=== PATIENT | male | born 1940 | race Caucasian/White ===

== ENCOUNTER → 2018-01-03 09:53 | Outpatient (CLI) | payer MEDICARE, SELFPAY ==
--- NOTE | 2018-01-03 10:09 | US_ITS ---
PROCEDURES: ULTRASOUND AORTA REASON FOR EXAM: Male, 77 years old. Abdominal aortic aneurysm. TECHNIQUE: Ultrasound evaluation of the aorta was performed with real-time and static shearer-scale imaging. COMPARISON: None. FINDINGS: There is atherosclerotic plaque formation of the abdominal aorta. Aorta measures: Proximal 2.6 cm. Middle 2.6 cm. Distal 2.6 cm. Aorta measure transversely: Proximal 3.0 cm. Middle 2.9 cm. Distal 3.9 cm. Right iliac artery measures: 1.4 cm. Right iliac artery measure transversely: 2.4 cm. Left iliac artery measures: 1.2 cm. Left iliac artery measure transversely: 1.8 cm. Fusiform infrarenal abdominal aortic aneurysm with a transverse dimension of 3.6 cm.. US/Aorta IMPRESSION: Fusiform infrarenal abdominal aortic aneurysm with a transverse dimension of 3.6 cm. Dilatation of the right common iliac artery. Electronically Signed: Wallace Friedman MD at 15:28 EDT Tel [phone], Service support ,
== END ==
PROVIDERS: Family Provider Internal Medicine; PCP Internal Medicine; Visit Provider Internal Medicine
DX: I71.4 Abdominal aortic aneurysm, without rupture (principal)
CPT/HCPCS: 76775

== ENCOUNTER → 2019-08-13 12:22 | Outpatient (CLI) | payer MEDICARE, SELFPAY ==
--- NOTE | 2019-08-13 12:25 | MRI_ITS ---
STUDY: MRI LUMBAR SPINE WITHOUT CONTRAST REASON FOR EXAM: Male, 78 years old. Spinal stenosis, c/o weak aching lower back into hips/legs x 3 yrs, h/o prior laminectomy 1990. TECHNIQUE: Standardized fat and water weighted pulse sequences were obtained in the sagittal and axial planes. COMPARISON: None. FINDINGS: Lumbar straightening. No significant scoliosis. No acute fracture, dislocation or osseous destruction. Conus medullaris terminates at the T12 level. Paraspinal muscle atrophy. Ectatic slightly dilated aorta measuring up to 3 cm. Right renal cyst. T12-L1: Moderate endplate spondylosis. Disc bulge with mild central canal narrowing. Facet joint arthrosis. Lateral recess narrowing without impingement. Normal bilateral intervertebral neural foramina. L1-2: Moderate endplate spondylosis. Severe disc height loss with moderate central canal narrowing. Facet joint arthrosis. Bilateral lateral recess narrowing with impingement. Bilateral neural femoral narrowing without impingement. L2-3: Moderate endplate spondylosis. Severe disc height loss. Facet joint arthrosis. Normal central canal and bilateral lateral recesses. Bilateral neural foraminal narrowing without impingement. L3-4: Severe endplate spondylosis with degenerative/reactive edema. Disc bulge with severe central canal narrowing. Facet joint arthrosis. Bilateral lateral recess narrowing with impingement. Bilateral neural foraminal narrowing with impingement on the left. Epidural fat contributes to central canal narrowing. L4-5: Moderate endplate spondylosis. Severe disc height loss. Extensive posterior osseous ridging with moderate central canal narrowing. Facet joint arthrosis. Bilateral lateral recess narrowing with impingement on the right. Bilateral neural foraminal narrowing with impingement on the right. L5-S1: Moderate endplate spondylosis. Disc bulge with mild central canal narrowing. Facet joint arthrosis. Bilateral lateral recess narrowing without impingement. Bilateral neural foraminal narrowing with impingement on the right. Left hemilaminotomy. MRI/Spine Lumbar (Routine) IMPRESSION: Extensive multilevel intervertebral disc disease with central canal narrowing predominating at L1-2, L3-4 and L4-5 Multilevel lateral recess narrowing with impingement of the bilateral descending L2, left L4 and bilateral L5 nerve roots Multilevel neural foraminal narrowing with impingement of the left L3, right L4 and right L5 nerve roots Lumbar straightening with moderate/severe osteoarthritis Ectatic slightly aneurysmal aorta (3 cm) Electronically Signed: Zana Fuller DO at 10:47 EST Tel , Service support ,
== END ==
PROVIDERS: Family Provider Internal Medicine; PCP Internal Medicine; Referring Provider Internal Medicine; Visit Provider Internal Medicine
DX: M48.062 Spinal stenosis, lumbar region with neurogenic claudication (principal)
CPT/HCPCS: 72148

== ENCOUNTER → 2020-05-12 08:28 | Outpatient (CLI) | payer MEDICARE, SELFPAY ==
[2020-04-27 08:56] VITALS: BMI 33.3
--- NOTE | 2020-05-12 08:29 | AAVD_ITS ---
Reason For Study: AAA Aorta Measurements Aorta Doppler Measurements Proximal aorta measures2.36 x 2.41cm. in cross- Peak systolic flow velocities within the proximal sectional axis. aorta measure 95.3 cm/sec. Proximal aorta measures2.44cm. in longitudinal Peak systolic flow velocities within the mid aorta axis. measure 91.7 cm/sec. Mid aorta measures2.56 x 3.4cm. in cross-sectionalPeak systolic flow velocities within the distal axis. aorta measure 66.1 cm/sec. Mid aorta measures3.06cm. in longitudinal axis. Distal aorta measures2.56 x 2.34cm. in cross- sectional axis. Distal aorta measures2.27cm. in longitudinal axis. Left Iliac Artery Left iliac artery measures 1.16 x 1.28 cm. in the cross-sectional axis. Left iliac artery measures 1.23 cm. in the longitudinal axis. Peak systolic velocity in the left iliac artery measures 143.1 cm/sec. Right Iliac Artery Right iliac artery measures 1.81 x 1.86 cm. in the cross-sectional axis. Right iliac artery measures 1.7 cm. in the longitudinal axis. Peak systolic velocity in the right iliac artery measures 132.2 cm/sec. Procedure Aorta IVC Iliac vasculature or bypass grafts [id number]. The exam was of fair technical quality due to bowel gas. Extremely difficult study due to bowel gas. Exam performed in department. Interpretation Summary Mid infra-renal abdominal aortic aneurysm 2.56 x 3.4cm Left common iliac 1.16 x 1.28cm Right common iliac 1.81 x 1.86 cm, ectatic Study was noted to be difficult secondary to bowel gas; fair quality Ordering Physician: Laci Lowry Performed By: Tim Ricci RVCarlos
[2020-05-12 10:06] LABS: Absolute Lymphocyte Count 1.68 X10^3/uL (0.83-4.51); Absolute Neutrophil Count 3.4 X10^3/uL (2.0-7.7); Basophil# 0.03 X10^3/uL; Basophil% 0.5 % (0-1); Eosinophil# 0.15 X10^3/uL; Eosinophils% 2.5 % (0-5); Hematocrit 41.3 % (40-54); Hemoglobin 13.2 g/dL (13.0-16.5); Lymphocyte # 1.68 X10^3/ul (4.0); Lymphocyte % 28.4 % (19-41); Mean Corpuscular Hgb 31.1 pg (27.0-32.0); Mean Corpuscular Volume 97.2 fL (80-94); Mean Platelet Vol. 10.4 fl (6.2-12.0); Monocyte# 0.64 X10^3/uL; Monocyte% 10.8 % (0-10); NRBC Flagged by Analyzer 0 % (0-5); Neutrophil # 3.39 X10^3/uL (2.7-7.7); Neutrophil % 57.5 % (47-70); Platelet Count 144 K/mm3 (150-450); RBC Distribution Width CV 14.3 % (11.6-14.6); RBC Distribution Width SD 50.6 fl (35.1-43.9); Red Blood Count 4.25 M/mm3 (4.6-6.2); White Blood Count 5.9 K/mm3 (4.4-11.0)
[2020-05-12 10:47] LABS: ALB/GLOB Ratio 0.9 RATIO (0.9-2.4); AST(SGOT) 17 U/L (15-37); Alanine Aminotransfer ALT/SGPT 19 U/L (16-61); Albumin, Serum 3.7 g/dL (3.2-5.0); Alkaline Phosphatase 106 U/L (45-117); Anion Gap 3 (5-15); BUN 18 mg/dL (7-18); Chloride 102 mmol/L (98-107); Cholesterol 156 mg/dL (200); EST Glomerular Filtration Rate 87 mL/min (>60); Est Glom Filt Rate - Afr Amer 105 mL/min (>60); Globulin 4.1 g/dL (2.2-4.2); Glucose 109 mg/dL (74-106); High Density Lipoprotein 38 mg/dL; Protein, Total 7.8 g/dL (6.4-8.2); Sodium Level 138 mmol/L (136-145); Triglycerides 85 mg/dL; Very Low Density Lipoprotein 17 mg/dL (5-40)
== END ==
PROVIDERS: PCP Internal Medicine; Referring Provider Surgery; Visit Provider Surgery
DX: I71.4 Abdominal aortic aneurysm, without rupture (principal); E78.5 Hyperlipidemia, unspecified; J44.9 Chronic obstructive pulmonary disease, unspecified
CPT/HCPCS: 36415; 80053; 80061; 85025; 93978

== ENCOUNTER 2020-08-15 12:24 | Emergency (ER) | payer MEDICARE, SELFPAY ==
[2020-05-27 05:56] VITALS: BMI 33.3
[2020-08-15 12:25] VITALS: BP 114/69; PULSE 80; RESP 24; TEMP 36.8; O2SAT 94; BMI 35.7
== END 2020-08-15 14:43 | disposition left against medical advice (07) ==
LOC: ED 13:43
PROVIDERS: Emergency Provider Emergency Medicine; PCP Internal Medicine
DX: R06.02 Shortness of breath (principal); Z53.21 Procedure and treatment not carried out due to patient leaving prior to being seen by health care provider

== ENCOUNTER → 2020-08-25 09:50 | Outpatient (CLI) | payer MEDICARE, SELFPAY ==
--- NOTE | 2020-08-25 10:00 | RAD_ITS ---
STUDY: X-RAY CHEST REASON FOR EXAM: Male, 79 years old. DYSPNEA, SOB, copd exacerbation -- History of copd. TECHNIQUE: Single AP portable view of the chest. COMPARISON: 05/18/2017. FINDINGS: There are interstitial fibrotic changes of the lungs. There is no demonstrated pleural abnormality. Normal size heart. Normal mediastinum and alireza. Normal visualized pulmonary arteries. Normal visualized aortic arch and descending thoracic aorta. Normal visualized thoracic spine. There is degenerative osteoarthritis of the bilateral shoulders. There is no demonstrated abnormality of the visualized soft tissue structures of the upper abdomen. RAD/Chest PA and Lateral IMPRESSION: Chronic interstitial lung disease.. Electronically Signed: Mike Musa, at 10:31 EST Tel , Service support ,
== END ==
PROVIDERS: PCP Internal Medicine; Visit Provider Internal Medicine
DX: U07.1 COVID-19 (principal); J44.1 Chronic obstructive pulmonary disease with (acute) exacerbation; J96.11 Chronic respiratory failure with hypoxia
CPT/HCPCS: 71046; 87635; C9803; U0003

== ENCOUNTER → 2020-08-25 09:55 | Outpatient (CLI) | payer MEDICARE, SELFPAY ==
[2020-08-15 12:25] VITALS: BMI 35.7
== END ==
PROVIDERS: PCP Internal Medicine; Referring Provider Internal Medicine; Visit Provider Internal Medicine
DX: U07.1 COVID-19 (principal); J44.1 Chronic obstructive pulmonary disease with (acute) exacerbation
CPT/HCPCS: 87635; C9803; U0003

== ENCOUNTER → 2021-02-16 15:31 | Outpatient (CLI) | payer MEDICARE, SELFPAY ==
[2021-02-16 14:17] VITALS: BMI 34.4
--- NOTE | 2021-02-16 16:00 | RAD_ITS ---
STUDY: X-RAY CHEST REASON FOR EXAM: Male, 80 years old. Shortness of breath TECHNIQUE: Frontal and lateral views COMPARISON: 08/25/2020 FINDINGS: The lungs are expanded. Interstitial prominence. Normal size heart. Normal mediastinum and alireza. Normal visualized pulmonary arteries. Normal visualized aortic arch and descending thoracic aorta. Degenerative changes of the thoracic spine. Normal visualized ribs, clavicles, and shoulders. There is no demonstrated abnormality of the visualized soft tissue structures of the upper abdomen. RAD/Chest PA and Lateral IMPRESSION: Interstitial prominence. Electronically Signed: Chrisitano Bond DO at 16:36 EDT Tel [phone], Service support ,
--- NOTE | 2021-02-16 16:00 | RAD_ITS ---
STUDY: X-RAY - LEFT SHOULDER REASON FOR EXAM: Male, 80 years old. Left shoulder pain TECHNIQUE: 4 view(s) of the shoulder. COMPARISON: None. FINDINGS: Normal glenohumeral articulation. Normal acromioclavicular joint. Normal acromion. Normal humeral head and visualized proximal humerus. The soft tissue structures are unremarkable. Normal visualized pulmonary apex. RAD/Shoulder min 2 Views IMPRESSION: No acute bony injury of the shoulder. Electronically Signed: Christiano Bond DO at 16:26 EDT Tel [phone], Service support ,
[2021-02-16 16:40] LABS: Absolute Neutrophil Count 3.9 X10^3/uL (2.0-7.7); Basophil# 0.03 X10^3/uL; Basophil% 0.4 % (0-1); Eosinophil# 0.41 X10^3/uL; Eosinophils% 5.5 % (0-5); Hematocrit 38.7 % (40-54); Hemoglobin 12.4 g/dL (13.0-16.5); Lymphocyte % 33.5 % (19-41); Mean Corpuscular Volume 93.5 fL (80-94); Mean Platelet Vol. 10.5 fl (6.2-12.0); Monocyte# 0.61 X10^3/uL; Monocyte% 8.2 % (0-10); NRBC Flagged by Analyzer 0 % (0-5); Neutrophil % 52.1 % (47-70); Platelet Count 157 K/mm3 (150-450); RBC Distribution Width CV 15.3 % (11.6-14.6); RBC Distribution Width SD 52.4 fl (35.1-43.9); Red Blood Count 4.14 M/mm3 (4.6-6.2); White Blood Count 7.5 K/mm3 (4.4-11.0)
[2021-02-16 16:56] LABS: ALB/GLOB Ratio 0.9 RATIO (0.9-2.4); AST(SGOT) 17 U/L (15-37); Alanine Aminotransfer ALT/SGPT 16 U/L (16-61); Albumin, Serum 3.4 g/dL (3.2-5.0); Alkaline Phosphatase 116 U/L (45-117); Anion Gap 8 (5-15); BUN 18 mg/dL (7-18); BUN/Creat Ratio 17.5 RATIO (10-20); Calcium,Total 8.7 mg/dL (8.5-10.1); Chloride 103 mmol/L (98-107); Creatinine, Serum 1.03 mg/dL (0.70-1.30); EST Glomerular Filtration Rate 74 mL/min (>60); Est Glom Filt Rate - Afr Amer 90 mL/min (>60); Globulin 3.9 g/dL (2.2-4.2); Glucose 123 mg/dL (74-106); Potassium 3.6 mmol/L (3.5-5.1); Protein, Total 7.3 g/dL (6.4-8.2); Sodium Level 139 mmol/L (136-145)
== END ==
PROVIDERS: PCP Internal Medicine; Referring Provider Physician Assistant; Visit Provider Physician Assistant
DX: M25.512 Pain in left shoulder (principal); R06.02 Shortness of breath; J44.9 Chronic obstructive pulmonary disease, unspecified; I10 Essential (primary) hypertension; K57.90 Diverticulosis of intestine, part unspecified, without perforation or abscess without bleeding
CPT/HCPCS: 36415; 71046; 73030; 80053; 85025

== ENCOUNTER → 2021-02-20 10:16 | Outpatient (CLI) | payer MEDICARE, SELFPAY ==
[2021-02-16 14:17] VITALS: BMI 34.4
[2021-02-20 10:46] LABS: Base Excess 3 mmol/L (-2 to +2); Bicarbonate 26.9 mmol/L (22-26); Blood Gas Specimen Type ART; O2 Delivery Device Cannula; PO2 81 mmHG (75-100); SITE L Brach; SO2 96 % (95-99); Total Carbon Dioxide 28 mmol/L; pCO2 39.4 mmHg (35-45); pH 7.44 (7.35-7.45)
== END ==
PROVIDERS: PCP Internal Medicine; Referring Provider Physician Assistant; Visit Provider Physician Assistant
DX: J44.9 Chronic obstructive pulmonary disease, unspecified (principal)
CPT/HCPCS: 36600; 82803

== ENCOUNTER → 2021-03-22 09:54 | Outpatient (CLI) | payer MEDICARE, SELFPAY ==
[2021-03-22 08:53] VITALS: BMI 34.4
[2021-03-22 12:10] LABS: Absolute Lymphocyte Count 1.99 X10^3/uL (0.83-4.51); Absolute Neutrophil Count 4.5 X10^3/uL (2.0-7.7); Basophil# 0.04 X10^3/uL; Basophil% 0.5 % (0-1); Eosinophil# 0.21 X10^3/uL; Eosinophils% 2.7 % (0-5); Hematocrit 39.2 % (40-54); Hemoglobin 12.7 g/dL (13.0-16.5); Lymphocyte # 1.99 X10^3/ul (0.83-4.51); Mean Corp Hgb Conc 32.4 g/dL (32-36); Mean Corpuscular Hgb 30.5 pg (27.0-32.0); Mean Corpuscular Volume 94.2 fL (80-94); Mean Platelet Vol. 10.5 fl (6.2-12.0); Monocyte# 0.93 X10^3/uL; Monocyte% 12.1 % (0-10); NRBC Flagged by Analyzer 0 % (0-5); Neutrophil # 4.45 X10^3/uL (2.7-7.7); Neutrophil % 58.2 % (47-70); Platelet Count 154 K/mm3 (150-450); RBC Distribution Width SD 51.6 fl (35.1-43.9); Red Blood Count 4.16 M/mm3 (4.6-6.2); White Blood Count 7.7 K/mm3 (4.4-11.0)
[2021-03-22 12:35] LABS: ALB/GLOB Ratio 0.8 RATIO (0.9-2.4); AST(SGOT) 17 U/L (15-37); Alanine Aminotransfer ALT/SGPT 20 U/L (16-61); Albumin, Serum 3.4 g/dL (3.2-5.0); Alkaline Phosphatase 114 U/L (45-117); Anion Gap 7 (5-15); BUN 12 mg/dL (7-18); BUN/Creat Ratio 13.6 RATIO (10-20); Calcium,Total 8.7 mg/dL (8.5-10.1); Chloride 102 mmol/L (98-107); Creatinine, Serum 0.88 mg/dL (0.70-1.30); EST Glomerular Filtration Rate 88 mL/min (>60); Est Glom Filt Rate - Afr Amer 107 mL/min (>60); Globulin 4.3 g/dL (2.2-4.2); Glucose 117 mg/dL (74-106); Potassium 3.7 mmol/L (3.5-5.1); Protein, Total 7.7 g/dL (6.4-8.2); Sodium Level 138 mmol/L (136-145)
== END ==
PROVIDERS: PCP Internal Medicine; Referring Provider Internal Medicine; Visit Provider Internal Medicine
DX: K57.92 Diverticulitis of intestine, part unspecified, without perforation or abscess without bleeding (principal)
CPT/HCPCS: 36415; 80053; 85025

== ENCOUNTER → 2021-03-22 10:32 | Outpatient (CLI) | payer MEDICARE, SELFPAY ==
[2021-03-22 08:53] VITALS: BMI 34.4
--- NOTE | 2021-03-22 10:33 | CT_ITS ---
STUDY: CT ABDOMEN AND PELVIS WITH CONTRAST REASON FOR EXAM: Male, 80 years old. History of acute diverticulitis. RADIATION DOSAGE (If Supplied By Facility): CTDIvol = ( 22.88 ) mGy, DLP = ( 1540.86 ) mGycm TECHNIQUE: Transaxial images were obtained from the dome of the diaphragm to the symphysis pubis with oral contrast. Oral and amp; IV Gastrografin and amp; 100mL Isovue-300 was administered. Sagittal and coronal images were reconstructed. Individualized dose optimization techniques were used for this CT. COMPARISON: Comparison is made with prior examination dated 11/30/2014. FINDINGS: The visualized lung bases are unremarkable. The visualized portions of the heart are within normal limits. There is decreased attenuation of the liver consistent with steatosis. Normal gallbladder and extrahepatic biliary system. Normal spleen. Normal pancreas. Normal bilateral adrenal glands. Normal right kidney. Normal left kidney. Normal visualized stomach. Normal small intestine. There are multiple colonic diverticula consistent with diverticulosis. The appendix is visualized and appears normal. There is diffuse atherosclerotic calcification of the abdominal aorta and its major visceral branches. Tortuosity of the distal abdominal aorta. The distal abdominal aorta measures 2.8 cm.Normal inferior vena cava. Normal retroperitoneum. Normal urinary bladder. There are prostatic calcifications. There is an umbilical hernia containing nondilated loop of small bowel. There are diffuse degenerative changes of the visualized lumbar spine. CT/Abdomen/Pelvis WITH Contrast IMPRESSION: Fatty infiltration of the liver. Sigmoid diverticulosis without radiographic evidence of acute diverticulitis. Stable appearance of umbilical hernia containing nondilated small bowel. Electronically Signed: Wallace Friedman MD at 13:36 EDT , Service support ,
== END ==
PROVIDERS: PCP Internal Medicine; Referring Provider Internal Medicine; Visit Provider Internal Medicine
DX: K57.92 Diverticulitis of intestine, part unspecified, without perforation or abscess without bleeding (principal)
CPT/HCPCS: 36415; 74177; 80053; 85025; Q9967

== ENCOUNTER → 2021-05-03 13:09 | Outpatient (CLI) | payer MEDICARE, SELFPAY ==
[2021-05-03 15:32] LABS: Absolute Lymphocyte Count 2.19 X10^3/uL (0.83-4.51); Absolute Neutrophil Count 3.7 X10^3/uL (2.0-7.7); Basophil# 0.04 X10^3/uL; Basophil% 0.6 % (0-1); Eosinophils% 2.9 % (0-5); Hematocrit 40.7 % (40-54); Lymphocyte # 2.19 X10^3/ul (0.83-4.51); Lymphocyte % 31.9 % (19-41); Mean Corp Hgb Conc 31.9 g/dL (32-36); Mean Corpuscular Hgb 30.4 pg (27.0-32.0); Mean Corpuscular Volume 95.3 fL (80-94); Mean Platelet Vol. 10.8 fl (6.2-12.0); Monocyte# 0.68 X10^3/uL; Monocyte% 9.9 % (0-10); NRBC Flagged by Analyzer 0 % (0-5); Neutrophil # 3.74 X10^3/uL (2.7-7.7); Neutrophil % 54.4 % (47-70); Platelet Count 142 K/mm3 (150-450); RBC Distribution Width SD 52.1 fl (35.1-43.9); Red Blood Count 4.27 M/mm3 (4.6-6.2); White Blood Count 6.9 K/mm3 (4.4-11.0)
[2021-05-03 16:03] LABS: ALB/GLOB Ratio 0.8 RATIO (0.9-2.4); AST(SGOT) 18 U/L (15-37); Alanine Aminotransfer ALT/SGPT 23 U/L (16-61); Albumin, Serum 3.4 g/dL (3.2-5.0); Alkaline Phosphatase 96 U/L (45-117); Anion Gap 4 (5-15); BUN 15 mg/dL (7-18); BUN/Creat Ratio 17.6 RATIO (10-20); Calcium,Total 8.8 mg/dL (8.5-10.1); Chloride 104 mmol/L (98-107); Cholesterol 174 mg/dL (200); Creatinine, Serum 0.85 mg/dL (0.70-1.30); EST Glomerular Filtration Rate 92 mL/min (>60); Est Glom Filt Rate - Afr Amer 111 mL/min (>60); Globulin 4.1 g/dL (2.2-4.2); Glucose 124 mg/dL (74-106); High Density Lipoprotein 35 mg/dL; Magnesium 2.1 mg/dL (1.6-2.6); Potassium 3.9 mmol/L (3.5-5.1); Protein, Total 7.5 g/dL (6.4-8.2); Sodium Level 139 mmol/L (136-145); Thyroid Stim Hormone (TSH) 0.78 uIU/mL (0.358-3.74); Triglycerides 100 mg/dL; Very Low Density Lipoprotein 20 mg/dL (5-40)
[2021-05-09 12:08] LABS: Testosterone, Free 9.28 ng/dL (5.00-21.00)
[2021-05-10 00:34] LABS: Testosterone, % Free 1.91 % (1.50-4.20); Testosterone, Total 486 ng/dL (264-916)
== END ==
PROVIDERS: PCP Internal Medicine; Referring Provider Internal Medicine; Visit Provider Internal Medicine
DX: I10 Essential (primary) hypertension (principal); I25.10 Atherosclerotic heart disease of native coronary artery without angina pectoris; E78.5 Hyperlipidemia, unspecified; J44.9 Chronic obstructive pulmonary disease, unspecified; E55.9 Vitamin D deficiency, unspecified; N40.1 Benign prostatic hyperplasia with lower urinary tract symptoms; N13.8 Other obstructive and reflux uropathy; D64.9 Anemia, unspecified; R53.83 Other fatigue; K21.9 Gastro-esophageal reflux disease without esophagitis; Z99.81 Dependence on supplemental oxygen
CPT/HCPCS: 36415; 80053; 80061; 82306; 83735; 84402; 84403; 84443; 85025

== ENCOUNTER → 2021-05-30 08:29 | Outpatient (CLI) | payer MEDICARE, SELFPAY ==
[2021-03-22 08:53] VITALS: BMI 34.4
--- NOTE | 2021-05-30 08:29 | AAVD_ITS ---
Reason For Study: AAA Aorta Measurements Aorta Doppler Measurements Proximal aorta measures2.73 x 2.73cm. in cross- Peak systolic flow velocities within the proximal sectional axis. aorta measure 59.1 cm/sec. Proximal aorta measures2.73cm. in longitudinal Peak systolic flow velocities within the mid aorta axis. measure 88.8 cm/sec. Mid aorta measures2.48 x 2.63cm. in cross- Peak systolic flow velocities within the distal sectional axis. aorta measure 103.4 cm/sec. Mid aorta measures2.42cm. in longitudinal axis. Distal aorta measures2.63 x 3.09cm. in cross- sectional axis. Distal aorta measures2.42cm. in longitudinal axis. Left Iliac Artery Left iliac artery measures 1.13 x 1.07 cm. in the cross-sectional axis. Left iliac artery measures 1.09 cm. in the longitudinal axis. Peak systolic velocity in the left iliac artery measures 111.1 cm/sec. Right Iliac Artery Right iliac artery measures 1.81 x 1.94 cm. in the cross-sectional axis. Right iliac artery measures 1.87 cm. in the longitudinal axis. Peak systolic velocity in the right iliac artery measures 113.3 cm/sec. Procedure Aorta IVC Iliac vasculature or bypass grafts [id number]. Aorta is very tortuous. Exam performed in department. VL/Abd Aortic/IVC Duplex scan Interpretation Summary Maximal diameter of the aorta is located in the mid aorta at 2.63 x 3.09 cm kelvin meter Flow rate in the aorta is normal except for slightly increased velocity distall y at 103 cm/s. Left common iliac measures 1.13 x 1.07 cm in diameter Right, that measures 1.81 x 1.94 cm in diameter which is mildly ectatic. A tortuous aorta is noted. Previously May 12 the mid aorta was felt to be 3.02 cm diameter. No s ignificant change Ordering Physician: Laci Lowry Referring Physician: Mary Arreola Performed By: Joselyn Jones, T
== END ==
PROVIDERS: PCP Internal Medicine; Referring Provider Surgery; Visit Provider Surgery
DX: I71.4 Abdominal aortic aneurysm, without rupture (principal)
CPT/HCPCS: 93978

== ENCOUNTER → 2021-07-05 11:24 | Outpatient (CLI) | payer MEDICARE, SELFPAY ==
--- NOTE | 2021-07-05 11:25 | RAD_ITS ---
STUDY: X-RAY CHEST REASON FOR EXAM: Male, 80 years old. CHEST PAIN Acute URI/copd TECHNIQUE: XR Chest 2 Views COMPARISON: 6 FINDINGS: There is no demonstrated pleural abnormality. Normal size heart. Normal mediastinum and alireza. Normal visualized pulmonary arteries. There is atherosclerotic calcification of the aortic arch with tortuosity. There are diffuse degenerative changes of the visualized thoracic spine. There is degenerative osteoarthritis of the bilateral shoulders. There is no demonstrated abnormality of the visualized soft tissue structures of the upper abdomen. RAD/Chest PA and Lateral IMPRESSION: There are no acute findings. Electronically Signed: Andrew Byrnes MD at 19:14 EST , Service support ,
== END ==
PROVIDERS: PCP Internal Medicine; Visit Provider Internal Medicine
DX: J06.9 Acute upper respiratory infection, unspecified (principal); J44.9 Chronic obstructive pulmonary disease, unspecified
CPT/HCPCS: 71046; 87635; U0005; U0003

== ENCOUNTER → 2022-01-29 | Outpatient (CLI) | payer MEDICARE, SELFPAY ==
[2022-01-29 15:30] LABS: Absolute Lymphocyte Count 2.34 X10^3/uL (0.83-4.51); Basophil# 0.02 X10^3/uL; Basophil% 0.3 % (0-1); Eosinophil# 0.13 X10^3/uL; Eosinophils% 1.8 % (0-5); Hematocrit 38.9 % (40-54); Hemoglobin 12.7 g/dL (13.0-16.5); Lymphocyte # 2.34 X10^3/ul (0.83-4.51); Lymphocyte % 32.2 % (19-41); Mean Corp Hgb Conc 32.6 g/dL (32-36); Mean Corpuscular Hgb 31.2 pg (27.0-32.0); Mean Corpuscular Volume 95.6 fL (80-94); Mean Platelet Vol. 10.7 fl (6.2-12.0); Monocyte# 0.75 X10^3/uL; Monocyte% 10.3 % (0-10); NRBC Flagged by Analyzer 0 % (0-5); Neutrophil # 3.99 X10^3/uL (2.7-7.7); Platelet Count 121 K/mm3 (150-450); RBC Distribution Width CV 14.6 % (11.6-14.6); RBC Distribution Width SD 50.9 fl (35.1-43.9); Red Blood Count 4.07 M/mm3 (4.6-6.2); White Blood Count 7.3 K/mm3 (4.4-11.0)
[2022-01-29 16:24] LABS: Vitamin D,25 Hydroxy 37.7 ng/mL
[2022-01-29 16:25] LABS: ALB/GLOB Ratio 0.9 RATIO (0.9-2.4); AST(SGOT) 18 U/L (15-37); Alanine Aminotransfer ALT/SGPT 20 U/L (16-61); Albumin, Serum 3.5 g/dL (3.2-5.0); Alkaline Phosphatase 85 U/L (45-117); Anion Gap 5 (5-15); BUN 20 mg/dL (7-18); BUN/Creat Ratio 20.5 RATIO (10-20); Calcium,Total 9.1 mg/dL (8.5-10.1); Chloride 106 mmol/L (98-107); Cholesterol 167 mg/dL (200); Creatinine, Serum 0.98 mg/dL (0.70-1.30); EST Glomerular Filtration Rate 78 mL/min (>60); Est Glom Filt Rate - Afr Amer 95 mL/min (>60); Free T3 2.7 pg/mL (2.18-3.98); Globulin 3.8 g/dL (2.2-4.2); Glucose 120 mg/dL (74-106); High Density Lipoprotein 38 mg/dL; Magnesium 2.2 mg/dL (1.6-2.6); PSA,Total - Annual Screen 0.06 ng/mL (0.00-4.00); Protein, Total 7.3 g/dL (6.4-8.2); Sodium Level 139 mmol/L (136-145); T4 Free Direct 1.16 ng/dL (0.76-1.46); Thyroid Stim Hormone (TSH) 0.76 uIU/mL (0.358-3.74); Triglycerides 102 mg/dL; Very Low Density Lipoprotein 20 mg/dL (5-40)
== END | disposition home or self-care (01) ==
LOC: BIMLAB 12:19
PROVIDERS: PCP Internal Medicine; Referring Provider Internal Medicine; Visit Provider Internal Medicine
DX: K57.90 Diverticulosis of intestine, part unspecified, without perforation or abscess without bleeding (principal); J44.9 Chronic obstructive pulmonary disease, unspecified; I42.8 Other cardiomyopathies; I71.4 Abdominal aortic aneurysm, without rupture; J96.11 Chronic respiratory failure with hypoxia; I25.118 Atherosclerotic heart disease of native coronary artery with other forms of angina pectoris; N40.1 Benign prostatic hyperplasia with lower urinary tract symptoms; N13.8 Other obstructive and reflux uropathy; E78.5 Hyperlipidemia, unspecified; K21.9 Gastro-esophageal reflux disease without esophagitis; I10 Essential (primary) hypertension; E55.9 Vitamin D deficiency, unspecified
CPT/HCPCS: 36415; 80053; 80061; 82306; 83735; 84153; 84439; 84443; 84481; 85025; G0103

== ENCOUNTER → 2022-02-01 | Outpatient (CLI) | payer MEDICARE, SELFPAY ==
--- NOTE | 2022-02-01 10:52 | RAD_ITS ---
STUDY: X-RAY CHEST REASON FOR EXAM: Male, 81 years old. DYSPNEA, CAD TECHNIQUE: PA and lateral views of the chest. COMPARISON: Comparison is made with prior study of 07/05/2021. FINDINGS: Hyperinflation. Increased interstitial markings as compared to prior examination. This may represent interstitial edema. Other differential diagnosis should include possible scarring. There is no demonstrated pleural abnormality. Normal size heart. Normal mediastinum and alireza. Normal visualized pulmonary arteries. There is atherosclerotic calcification of the aortic arch with tortuosity. There are diffuse degenerative changes of the visualized thoracic spine. Normal visualized ribs, clavicles, and shoulders. There is no demonstrated abnormality of the visualized soft tissue structures of the upper abdomen. RAD/Chest PA and Lateral IMPRESSION: Increased interstitial markings at the lung bases suggestive of interstitial edema. Scarring should be ruled out as well. Electronically Signed: Wallace Friedman MD at 13:19 EDT ,
== END | disposition home or self-care (01) ==
LOC: RAD 10:48
PROVIDERS: PCP Internal Medicine; Visit Provider Internal Medicine Cardiovascular Disease
DX: R06.00 Dyspnea, unspecified (principal); I42.8 Other cardiomyopathies; I20.8 Other forms of angina pectoris; I25.10 Atherosclerotic heart disease of native coronary artery without angina pectoris; I10 Essential (primary) hypertension; E78.5 Hyperlipidemia, unspecified
CPT/HCPCS: 71046

== ENCOUNTER → 2022-02-12 | Outpatient (CLI) | payer MEDICARE, SELFPAY ==
[2022-02-09 08:32] VITALS: BMI 36.6
--- NOTE | 2022-02-12 08:30 | HP.PCM_ITS ---
History and Physical Date of Admission: 02/12/22 81-year-old man with a history of coronary artery disease, nonischemic cardiomyopathy, hypertension, abdominal aortic aneurysm who presents for evaluation.? He apparently has been experiencing chest discomfort described as a heaviness substernal radiating across his chest up to his ears and usually relieved with sublingual nitroglycerin.? He says that he had had these episodes in the past and it culminated in multiple stress test demonstrating ischemia and a cardiac catheterization the last of which he thinks was in 2012 demonstrating a normal left ventricular end-diastolic pressure normal right-sided pressures single-vessel disease involving an isolated branch vessel diagonal vessel and luminal irregularities noted in the circumflex artery, right coronary artery and left anterior descending artery.? His last evaluation with an echocardiogram was in October 2020 demonstrating ejection fraction of 50 to 55%.? His last stress test was in December 2017 demonstrating no evidence of ischemia.? He has been compliant with all his medications.? He however says that this discomfort has been getting worse and requires nitroglycerin use.? His physical exam today is unremarkable. Intake Vital Signs: See EMR Intake Visit Reasons:?LHC Allergies Yulyqzs-IUY-ZzV Reductase Inhibitor [Zupmhjy-Jnx-Orz Reductase Inhibitor] Allergy (Verified 02/01/22 09:54) Chest tightnessSulfa (Sulfonamide Antibiotics) Allergy (Verified 02/01/22 09:54) Swellingvenom-honey bee [bee venom (honey bee)] Allergy (Verified 02/01/22 09:54) Anaphylaxissteroids Adverse Reaction (Unknown, Uncoded 02/01/22 09:54) Other Medications See EMR Ejection fraction %: 50 to 54 PFSH Medical History? Abdominal aortic aneurysm (AAA) Anemia of unknown etiology Aneurysm, common iliac artery Atherosclerotic heart disease of [place] coronary artery without angina pectoris BPH (benign prostatic hyperplasia) BPH w urinary obs/LUTS Chronic back pain greater than 3 months duration Chronic respiratory failure with hypoxia COPD (chronic obstructive pulmonary disease) Diverticulosis Essential hypertension Gastroesophageal reflux disease Gout HLD (hyperlipidemia) Non-ischemic cardiomyopathy Premature ventricular contraction Sleep apnea Surgical History? History of cataract surgery History of colonoscopy (2009) History of laminectomy History of right and left heart catheterization (10/02/12) History of tonsillectomy S/P decompression of ulnar nerve at elbow Family History? Sister DiabetesMother Hypertension CAD (coronary artery disease)Other Asthma Breast cancer Heart disease Hyperlipemia Respiratory disease Social History? Smoking Status:? Unknown if ever smoked alcohol intake:? current alcohol intake frequency: holidays/special occasions only substance use type:? does not use ROS Const Const: Negative for fatigue, weakness, headache(s), frequent falls, difficulty sleeping or excessive sweating Eyes Eyes: Negative for loss of peripheral vision, transient loss of vision, blurry vision, double vision or tunnel vision ENT ENT: Negative for headache(s), dizziness, Nosebleed/epistaxis or balance problems Cardio Chest Pain: Yes Frequency: daily and weekly Character: dull, tightness, squeezing and other (radiates up to ears) Palpitations: No Edema: None Muscle aches with walking: None Resp Respiratory: Positive for SOB with activity (continuous O2 at 2L); Negative for SOB at rest, SOB orthopnea\SOB lying down, Cough or paroxysmal nocturnal dyspnea GI GI: Negative nausea, vomiting, heartburn or black,tarry stools : Negative for hematuria Musc Musc: Positive for joint pain; Negative for muscle aches/ myalgia, muscle weakness or balance problems Skin Skin: Negative non-healing lesions, rash or unusual bruising Neuro Neuro: Negative for dizziness, lightheadedness, near syncope, syncope, orthostatic symptoms, frequent falls, headache(s), weakness, blurry vision, double vision or lack of coordination Jose Hematologic/Lymphatic: Negative for easy bleeding or easy bruising Endo Endo: Negative for fatigue, excessive sweating or increased thirst/drinking Psych Psych: Negative for anxiety or depression Allergy Allergy/Immunology: Negative for hives and Negative for rash Cardiology Exam Const Appearance: cooperative, healthy appearing, no acute distress, well developed and well groomed Nutritional Appearance: average body habitus and well nourished Orientation: alert, awake and oriented x3 Head Head: normal to inspection, normocephalic and atraumatic Ears: hearing grossly normal bilaterally and external ears normal Nose: external nose normal, nares normal, nasal mucous membranes and turbinates normal, septum normal and no nasal discharge Face and Sinus: face symmetric Mouth: oral mucosae normal, tongue normal, oropharynx normal and moist mucous membranes Teeth and gingiva: dentition normal Throat: posterior oropharynx normal, tonsils normal and uvula midline Eyes General: appearance normal, both eyes and all related structures Eyelids: eyelids normal Conjunctivae: conjunctivae normal Pupils: PERRL, normal by confrontation and accommodation normal EOM: EOM intact bilaterally Neck Neck: normal visual inspection, trachea midline and no JVD JVD: +5 Carotids: normal carotid upstroke and bounding pulses Chest Chest inspection: normal inspection of the chest, symmetric chest movement and normal respiratory effort Auscultation: Bilateral: Clear to Auscultation Cardio Palpation: normal PMI Rate: regular rate Rhythm: regular rhythm Heart sounds: S1 normal, S2 normal and normal, physiologic split S2; Negative rub, gallop or murmur GI GI: normal to inspection, soft, no hepatosplenomegaly and bowel sounds present Neuro General: patient alert, patient awake, patient oriented x3, gait normal, moves all extremities and no focal sensory deficit Skin Skin: no rashes or lesions noted Extremities Pulses: Normal: Right Femoral Pulse, Left Femoral Pulse, Right Dorsalis Pedis Pulse, Left Dorsalis Pedis Pulse, Right Posterior Tibial Pulse, Left Posterior Tibial Pulse, Right Radial Pulse and Left Radial Pulse Lower Extremity Edema: None: Bilateral Musculoskel Musculoskeletal: No joint tenderness Psych Psychological: normal affect Supplemental Info Supplemental Information ECHOCARDIOGRAM 11/23/2020 Interpretation Summary 1. Echo enhancing agent was utilized to assess for endocardial menendez 2. LV is normal in size and thickness. Systolic ejection fraction is 50-55%. There are no regional wall motion abnormality seen 3. There are no significant valvular dysfunction seen 4. Right ventricle is normal in size and systolic function 5. Estimated right ventricular systolic pressure is 28 mm Hg 6. Compared to the prior study done in 12/2017, there are no significant changes seen ECHOCARDIOGRAM 06/11/2017 Interpretation Summary The study was technically difficult. Contrast injection was performed. Mild segmental systolic dysfunction (see wall motion). The estimated ejection fraction is 45 %. The right atrium is mildly enlarged. Trivial mitral valve insufficiency. Mild tricuspid valve insufficiency. Mild focal aortic valve thickening. Right ventricular systolic pressure estimated to be 26 mmHg. NM CARDIAC STRESS (SPECT) W/LEXISCAN 12/25/2017 CONCLUSION:? #1 no EKG evidence of ischemia on the scan stress test. #2 occasional PVCs noted. #3 nuclear cardiac imaging to follow . CONCLUSION:? #1 no evidence of ischemia or infarction with excessive gut uptake noted ?adjacent to the inferior wall. Probable diaphragmatic attenuation artifact noted #2 normal LV systolic function noted ECHOCARDIOGRAM 01/15/2015 Interpretation Summary The study was technically difficult. Contrast injection was performed. Mild segmental systolic dysfunction (see wall motion). The estimated ejection fraction is 55 %. Mild (1+) mitral valve insufficiency. Mild tricuspid valve insufficiency. Mild focal aortic valve thickening. Calcified aortic root. Right ventricular systolic pressure estimated to be 27 mmHg. Bubble contrast study negative for right to left interatrial shunt. Laboratory Tests ? 05/03/21 ? 13:10 Triglycerides ?100 Cholesterol ?174 LDL Cholesterol ?119 HDL Cholesterol ?35 L Labs: ?? ? LDL Cholesterol 109 mg/dL (0-130) ?? ? HDL Cholesterol 38 mg/dL (40-) L ?? ? Triglycerides 102 mg/dL (-199) ?? ? VLDL Cholesterol 20 mg/dL (5-40) Diagnostics: ?? ? Electrocardiogram ? Chest X-Ray ? Pulmonary: ?? ? No Data to Display Assessment and Plan Assessment and Plan (1) Exertional angina: ?Status:?Acute ? ? ? Orders:?Orders: ?Plan - Dr. Saurabh Lyles MD: He does have evidence of exertional angina.? My recommendation at this time would be for him to continue the current medical therapy and for us to consider a left heart catheterization.? Depending on the findings further recommendations will be made. (2) Non-ischemic cardiomyopathy: ?Status:?Chronic ? ? ? Orders:?Orders: A ?Plan - Dr. Saurabh Lyles MD: He does have evidence of nonischemic cardiomyopathy which is out of proportion.? I would recommend that we repeat the echocardiogram at some point. (3) HLD (hyperlipidemia): ?Status:?Chronic ? ? ? Orders:?Orders: ?Plan - Dr. Saurabh Lyles MD: He does have a history of hyperlipidemia.? We will continue with aggressive risk factor modification and lipid-lowering. (4) Essential hypertension: ?Status:?Chronic ? ? ? Orders:?Orders: ?Plan - Dr. Saurabh Lyles MD: His blood pressure is under good control at this particular time.? I would not suggest that we make any changes. Thank you for allowing me to participate in the care of your patient.? Please don't hesitate to call if any issues arise.
== END | disposition home or self-care (01) ==
PROVIDERS: PCP Internal Medicine; Visit Provider Internal Medicine Cardiovascular Disease
DX: I20.9 Angina pectoris, unspecified (principal); I42.8 Other cardiomyopathies; I10 Essential (primary) hypertension; E78.5 Hyperlipidemia, unspecified; Z53.9 Procedure and treatment not carried out, unspecified reason
CPT/HCPCS: 87426

== ENCOUNTER → 2022-05-29 | Outpatient (CLI) | payer MEDICARE, SELFPAY ==
--- NOTE | 2022-05-29 10:00 | RAD_ITS ---
STUDY: X-RAY CHEST REASON FOR EXAM: Male, 81 years old. Chest pain/pressure TECHNIQUE: PA and lateral views of the chest. COMPARISON: 02/01/2022 FINDINGS: Lungs are expanded with chronic interstitial changes, no superimposed infiltrate or effusion. There is no demonstrated pleural abnormality. Normal size heart. Normal mediastinum and alireza. Normal visualized pulmonary arteries. There is atherosclerotic calcification of the aortic arch with tortuosity. There are diffuse degenerative changes of the visualized thoracic spine. Normal visualized ribs, clavicles, and shoulders. There is no demonstrated abnormality of the visualized soft tissue structures of the upper abdomen. RAD/Chest PA and Lateral IMPRESSION: Degenerative changes, as described above. No demonstrated acute cardiopulmonary process. No interval change Electronically Signed: Salvatore Hinton MD at 11:11 EDT ,
[2022-05-29 10:04] LABS: Absolute Lymphocyte Count 2.09 X10^3/uL (0.83-4.51); Basophil# 0.02 X10^3/uL; Basophil% 0.3 % (0-1); Eosinophil# 0.14 X10^3/uL; Hematocrit 40.1 % (40-54); Hemoglobin 13.2 g/dL (13.0-16.5); Lymphocyte # 2.09 X10^3/ul (0.83-4.51); Lymphocyte % 30.4 % (19-41); Mean Corp Hgb Conc 32.9 g/dL (32-36); Mean Corpuscular Hgb 31.1 pg (27.0-32.0); Mean Corpuscular Volume 94.4 fL (80-94); Mean Platelet Vol. 9.3 fl (6.2-12.0); Monocyte# 0.65 X10^3/uL; Monocyte% 9.4 % (0-10); NRBC Flagged by Analyzer 0 % (0-5); Neutrophil # 3.95 X10^3/uL (2.7-7.7); Neutrophil % 57.5 % (47-70); Platelet Count 128 K/mm3 (150-450); RBC Distribution Width CV 14.6 % (11.6-14.6); RBC Distribution Width SD 49.6 fl (35.1-43.9); Red Blood Count 4.25 M/mm3 (4.6-6.2); White Blood Count 6.9 K/mm3 (4.4-11.0)
[2022-05-29 10:37] LABS: Anion Gap 6 (5-15); BUN 13 mg/dL (7-18); BUN/Creat Ratio 14.7 RATIO (10-20); Calcium,Total 8.8 mg/dL (8.5-10.1); Chloride 107 mmol/L (98-107); Creatinine, Serum 0.88 mg/dL (0.70-1.30); EST Glomerular Filtration Rate 88 mL/min (>60); Est Glom Filt Rate - Afr Amer 106 mL/min (>60); Glucose 115 mg/dL (74-106); Potassium 4.1 mmol/L (3.5-5.1); Sodium Level 140 mmol/L (136-145)
== END | disposition home or self-care (01) ==
LOC: LAB 09:37
PROVIDERS: PCP Internal Medicine; Referring Provider Internal Medicine Cardiovascular Disease; Visit Provider Internal Medicine Cardiovascular Disease
DX: R06.00 Dyspnea, unspecified (principal); I42.0 Dilated cardiomyopathy; I70.0 Atherosclerosis of aorta; I25.118 Atherosclerotic heart disease of native coronary artery with other forms of angina pectoris; R07.89 Other chest pain; E78.5 Hyperlipidemia, unspecified; I10 Essential (primary) hypertension
CPT/HCPCS: 36415; 71046; 80048; 85025

== ENCOUNTER 2022-06-05 06:31 | Day surgery (SDC) | payer MEDICARE, SELFPAY ==
[2022-06-04 07:38] VITALS: BMI 36.6
--- NOTE | 2022-06-04 14:46 | PCM.HP.BLA ---
History and Physical Date of Admission: 06/05/22 81-year-old man with a history of coronary artery disease, nonischemic cardiomyopathy, hypertension, abdominal aortic aneurysm who presents to the Emergency Department Manager for a heart catheterization. He apparently has been experiencing chest discomfort described as a heaviness substernal radiating across his chest up to his ears and usually relieved with sublingual nitroglycerin. He says that he had had these episodes in the past and it culminated in multiple stress test demonstrating ischemia and a cardiac catheterization the last of which he thinks was in 2012 demonstrating a normal left ventricular end-diastolic pressure normal right-sided pressures single-vessel disease involving an isolated branch vessel diagonal vessel and luminal irregularities noted in the circumflex artery, right coronary artery and left anterior descending artery. His last evaluation with an echocardiogram was in October 2020 demonstrating ejection fraction of 50 to 55%. His last stress test was in December 2017 demonstrating no evidence of ischemia. He has been compliant with all his medications. He however says that this discomfort has been getting worse and requires nitroglycerin use. His physical exam today is unremarkable. Intake Vital Signs: See EMR Intake Visit Reasons: [facility] Allergies Pscedgq-FSJ-HaJ Reductase Inhibitor [Lkmypnz-Ffs-Tlc Reductase Inhibitor] Allergy (Verified 02/01/22 09:54) Chest tightness Sulfa (Sulfonamide Antibiotics) Allergy (Verified 02/01/22 09:54) Swelling venom-honey bee [bee venom (honey bee)] Allergy (Verified 02/01/22 09:54) Anaphylaxis steroids Adverse Reaction (Unknown, Uncoded 02/01/22 09:54) Other Medications See EMR Ejection fraction %: 50 to 54 [facility] Medical History Abdominal aortic aneurysm (AAA) Anemia of unknown etiology Aneurysm, common iliac artery Atherosclerotic heart disease of [place] coronary artery without angina pectoris BPH (benign prostatic hyperplasia) BPH w urinary obs/LUTS Chronic back pain greater than 3 months duration Chronic respiratory failure with hypoxia COPD (chronic obstructive pulmonary disease) Diverticulosis Essential hypertension Gastroesophageal reflux disease Gout HLD (hyperlipidemia) Non-ischemic cardiomyopathy Premature ventricular contraction Sleep apnea Surgical History History of cataract surgery History of colonoscopy (2009) History of laminectomy History of right and left heart catheterization (10/02/12) History of tonsillectomy S/P decompression of ulnar nerve at elbow Family History Sister Diabetes Mother Hypertension CAD (coronary artery disease) Other Asthma Breast cancer Heart disease Hyperlipemia Respiratory disease Social History Smoking Status: Unknown if ever smoked alcohol intake: current alcohol intake frequency: holidays/special occasions only substance use type: does not use ROS Const Const: Negative for fatigue, weakness, headache(s), frequent falls, difficulty sleeping or excessive sweating Eyes Eyes: Negative for loss of peripheral vision, transient loss of vision, blurry vision, double vision or tunnel vision ENT ENT: Negative for headache(s), dizziness, Nosebleed/epistaxis or balance problems Cardio Chest Pain: Yes Frequency: daily and weekly Character: dull, tightness, squeezing and other (radiates up to ears) Palpitations: No Edema: None Muscle aches with walking: None Resp Respiratory: Positive for SOB with activity (continuous O2 at 2L); Negative for SOB at rest, SOB orthopnea\SOB lying down, Cough or paroxysmal nocturnal dyspnea GI GI: Negative nausea, vomiting, heartburn or black,tarry stools : Negative for hematuria Musc Musc: Positive for joint pain; Negative for muscle aches/ myalgia, muscle weakness or balance problems Skin Skin: Negative non-healing lesions, rash or unusual bruising Neuro Neuro: Negative for dizziness, lightheadedness, near syncope, syncope, orthostatic symptoms, frequent falls, headache(s), weakness, blurry vision, double vision or lack of coordination Jose Hematologic/Lymphatic: Negative for easy bleeding or easy bruising Endo Endo: Negative for fatigue, excessive sweating or increased thirst/drinking Psych Psych: Negative for anxiety or depression Allergy Allergy/Immunology: Negative for hives and Negative for rash Cardiology Exam Const Appearance: cooperative, healthy appearing, no acute distress, well developed and well groomed Nutritional Appearance: average body habitus and well nourished Orientation: alert, awake and oriented x3 Head Head: normal to inspection, normocephalic and atraumatic Ears: hearing grossly normal bilaterally and external ears normal Nose: external nose normal, nares normal, nasal mucous membranes and turbinates normal, septum normal and no nasal discharge Face and Sinus: face symmetric Mouth: oral mucosae normal, tongue normal, oropharynx normal and moist mucous membranes Teeth and gingiva: dentition normal Throat: posterior oropharynx normal, tonsils normal and uvula midline Eyes General: appearance normal, both eyes and all related structures Eyelids: eyelids normal Conjunctivae: conjunctivae normal Pupils: PERRL, normal by confrontation and accommodation normal EOM: EOM intact bilaterally Neck Neck: normal visual inspection, trachea midline and no JVD JVD: +5 Carotids: normal carotid upstroke and bounding pulses Chest Chest inspection: normal inspection of the chest, symmetric chest movement and normal respiratory effort Auscultation: Bilateral: Clear to Auscultation Cardio Palpation: normal PMI Rate: regular rate Rhythm: regular rhythm Heart sounds: S1 normal, S2 normal and normal, physiologic split S2; Negative rub, gallop or murmur GI GI: normal to inspection, soft, no hepatosplenomegaly and bowel sounds present Neuro General: patient alert, patient awake, patient oriented x3, gait normal, moves all extremities and no focal sensory deficit Skin Skin: no rashes or lesions noted Extremities Pulses: Normal: Right Femoral Pulse, Left Femoral Pulse, Right Dorsalis Pedis Pulse, Left Dorsalis Pedis Pulse, Right Posterior Tibial Pulse, Left Posterior Tibial Pulse, Right Radial Pulse and Left Radial Pulse Lower Extremity Edema: None: Bilateral Musculoskel Musculoskeletal: No joint tenderness Psych Psychological: normal affect Supplemental Information ECHOCARDIOGRAM 11/23/2020 Interpretation Summary 1. Echo enhancing agent was utilized to assess for endocardial menendez 2. LV is normal in size and thickness. Systolic ejection fraction is 50-55%. There are no regional wall motion abnormality seen 3. There are no significant valvular dysfunction seen 4. Right ventricle is normal in size and systolic function 5. Estimated right ventricular systolic pressure is 28 mm Hg 6. Compared to the prior study done in 12/2017, there are no significant changes seen ECHOCARDIOGRAM 06/11/2017 Interpretation Summary The study was technically difficult. Contrast injection was performed. Mild segmental systolic dysfunction (see wall motion). The estimated ejection fraction is 45 %. The right atrium is mildly enlarged. Trivial mitral valve insufficiency. Mild tricuspid valve insufficiency. Mild focal aortic valve thickening. Right ventricular systolic pressure estimated to be 26 mmHg. NM CARDIAC STRESS (SPECT) W/LEXISCAN 12/25/2017 CONCLUSION: #1 no EKG evidence of ischemia on the scan stress test. #2 occasional PVCs noted. #3 nuclear cardiac imaging to follow . CONCLUSION: #1 no evidence of ischemia or infarction with excessive gut uptake noted adjacent to the inferior wall. Probable diaphragmatic attenuation artifact noted #2 normal LV systolic function noted ECHOCARDIOGRAM 01/15/2015 Interpretation Summary The study was technically difficult. Contrast injection was performed. Mild segmental systolic dysfunction (see wall motion). The estimated ejection fraction is 55 %. Mild (1+) mitral valve insufficiency. Mild tricuspid valve insufficiency. Mild focal aortic valve thickening. Calcified aortic root. Right ventricular systolic pressure estimated to be 27 mmHg. Bubble contrast study negative for right to left interatrial shunt. Laboratory Tests 05/03/21 13:10 Triglycerides 100 Cholesterol 174 LDL Cholesterol 119 HDL Cholesterol 35 L Labs: LDL Cholesterol 109 mg/dL (0-130) HDL Cholesterol 38 mg/dL (40-) L Triglycerides 102 mg/dL (-199) VLDL Cholesterol 20 mg/dL (5-40) Diagnostics: Electrocardiogram Chest X-Ray Pulmonary: No Data to Display Assessment and Plan Assessment and Plan (1) Exertional angina: Status: Acute Plan - Dr. Saurabh Lyles MD: He does have evidence of exertional angina. My recommendation at this time would be for him to continue the current medical therapy and for us to proceed a left heart catheterization. Depending on the findings further recommendations will be made. Initially his heart catheterization was recommended at office visit in January 2022, but this has been postponed by patient multiple times for various reasons for various reasons. (2) Non-ischemic cardiomyopathy: Plan - Dr. Saurabh Lyles MD: He does have evidence of nonischemic cardiomyopathy which is out of proportion. I would recommend that we repeat the echocardiogram at some point. (3) HLD (hyperlipidemia): Status: Chronic John - Dr. Saurabh Lyles MD: He does have a history of hyperlipidemia. We will continue with aggressive risk factor modification and lipid-lowering. (4) Essential hypertension: Status: Chronic John - Dr. Saurabh Lyles MD: His blood pressure is under good control at this particular time. I would not suggest that we make any changes.
--- NOTE | 2022-06-05 08:42 | CL.D_ITS ---
Patient Name: MARIA INES MENENDEZ Study Date: 06/05/2022 Performing: Saurabh Lyles MD Ht: 68 inches 172.72 cm : 1940 Wt: 241.01 lbs 109.32 kg Age: 81 Gender: male BSA: 2.21 PROCEDURE(S) PERFORMED [id number])[facility] CLINICAL PROFILE AND INDICATIONS Indications: Other Heart Failure: None Stress/Imaging Stress/Image Study Performed: No CAD Presentations: Other: sob CONCLUSIONS Non obstructive coronary arteries Normal LV size, wall motion,and systolic function RECOMMENDATIONS Medical therapy DESCRIPTION OF PROCEDURE The patient arrived to the procedure lab. The risks and benefits of the procedure as well as a full description of our services here and current unavailability of surgical backup were fully explained to the patient and/or their significant other prior to the catheterization. The Timeout was completed, verifying the correct patient and procedure. The patient's procedural site was prepped and draped in the usual fashion. Local anesthetic was given subcutaneously to right radial region with Lidocaine 2%. Using a modified Seldinger technique, arterial access was obtained via the right radial artery, a 6Fr sheath was inserted. Left Coronary Artery selective angiography was performed in multiple views using a 5 Fr. 4.0 Comstock catheter. Right Coronary Artery selective angiography was then performed in multiple views using a 5 Fr. JR 5 catheter.The arterial sheath was pulled and a TR Band was applied for hemostasis w/ 10ml air CORONARY ANGIOGRAPHY DOMINANCE: Right Dominant LEFT HEART ASSESSMENT Left Ventricular Ejection Fraction: by Echo 55 % Normal LV wall motion Normal Left Ventricular systolic function LEFT MAIN: Angiographically normal LEFT ANTERIOR DESCENDING ARTERY: Mild luminal irregularities less than 30% CIRCUMFLEX ARTERY: Mild luminal irregularities less than 30% RIGHT CORONARY ARTERY: No significant disease noted COMPLICATIONS No Complications PROCEDURE MEDICATIONS Versed 1 mg IV Fentanyl 50 mcg IV Oxygen: 2 L/min via nasal cannula-as per home Heparin given IA 06/05/2022 08:26:33 Verapamil 2.5mg,3000 units of Heparin given IA 06/05/2022 08:26:33 SUMMARY OF HEMODYNAMIC DATA Time AIR REST ECG 07:12:24 AO 111/49 (80) SA 08:28:09 AIR REST 08:47:58 Signed By Saurabh Lyles MD On 06/05/2022 09:00:01 Signed By Saurabh Lyles MD On 06/05/2022 08:41:31 Saurabh Lyles MD
== END 2022-06-05 10:20 | disposition home or self-care (01) ==
PROVIDERS: PCP Internal Medicine; Referring Provider Internal Medicine Cardiovascular Disease; Visit Provider Internal Medicine Cardiovascular Disease
DX: I25.118 Atherosclerotic heart disease of native coronary artery with other forms of angina pectoris (principal); J44.9 Chronic obstructive pulmonary disease, unspecified; I42.8 Other cardiomyopathies; I49.3 Ventricular premature depolarization; I71.40 Abdominal aortic aneurysm, without rupture, unspecified; I10 Essential (primary) hypertension; E78.5 Hyperlipidemia, unspecified; Z79.82 Long term (current) use of aspirin; Z79.899 Other long term (current) drug therapy
CPT/HCPCS: 93005; 93454; 99152; 99153; J7030; Q9967; C1769; C1894

== ENCOUNTER → 2022-08-31 | Outpatient (CLI) | payer MEDICARE, SELFPAY ==
[2022-08-31 13:10] LABS: Absolute Lymphocyte Count 2.24 X10^3/uL (0.83-4.51); Absolute Neutrophil Count 3.9 X10^3/uL (2.0-7.7); Basophil# 0.02 X10^3/uL; Basophil% 0.3 % (0-1); Eosinophil# 0.11 X10^3/uL; Eosinophils% 1.6 % (0-5); Hematocrit 42.4 % (40-54); Hemoglobin 13.5 g/dL (13.0-16.5); Lymphocyte # 2.24 X10^3/ul (0.83-4.51); Mean Corp Hgb Conc 31.8 g/dL (32-36); Mean Corpuscular Volume 97.2 fL (80-94); Mean Platelet Vol. 10.1 fl (6.2-12.0); Monocyte# 0.67 X10^3/uL; Monocyte% 9.6 % (0-10); NRBC Flagged by Analyzer 0 % (0-5); Neutrophil # 3.93 X10^3/uL (2.7-7.7); Neutrophil % 56.2 % (47-70); Platelet Count 132 K/mm3 (150-450); RBC Distribution Width SD 53.6 fl (35.1-43.9); Red Blood Count 4.36 M/mm3 (4.6-6.2)
[2022-08-31 13:31] LABS: BNP,B-Type NATRIURETIC PEPTIDE 14.3 pg/mL (0-100)
[2022-08-31 13:42] LABS: Anion Gap 2 (5-15); BUN 13 mg/dL (7-18); BUN/Creat Ratio 15.1 RATIO (10-20); Calcium,Total 9.2 mg/dL (8.5-10.1); Chloride 107 mmol/L (98-107); Creatinine, Serum 0.86 mg/dL (0.70-1.30); EST Glomerular Filtration Rate 91 mL/min (>60); Est Glom Filt Rate - Afr Amer 110 mL/min (>60); Glucose 109 mg/dL (74-106); Potassium 4.1 mmol/L (3.5-5.1); Sodium Level 139 mmol/L (136-145); Thyroid Stim Hormone (TSH) 1.26 uIU/mL (0.358-3.74)
== END | disposition home or self-care (01) ==
LOC: LAB 11:34
PROVIDERS: PCP Internal Medicine; Referring Provider Nurse Practitioner Gerontology; Visit Provider Nurse Practitioner Gerontology
DX: R06.00 Dyspnea, unspecified (principal); R53.83 Other fatigue
CPT/HCPCS: 36415; 80048; 83880; 84443; 85025

== ENCOUNTER 2023-02-23 15:19 | Inpatient (IN) | payer MEDICARE, SELFPAY ==
[2023-02-23] VITALS (9 sets, daily range): BP systolic 109–125; BP diastolic 77–93; PULSE 80–88; RESP 16–20; TEMP 36.2–36.6; O2SAT 85–98; BMI 35.4
--- NOTE | 2023-02-23 15:38 | CT_ITS ---
STUDY: CT ABDOMEN AND PELVIS WITH CONTRAST REASON FOR EXAM: Male, 82 years old. abdominal distention RADIATION DOSAGE (If Supplied By Facility): CTDIvol = ( 19.49 ) mGy, DLP = ( 1783.75 ) mGycm TECHNIQUE: Transaxial images were obtained from the dome of the diaphragm to the symphysis pubis without oral contrast. IV 100mL Isovue-370 was administered. Sagittal and coronal images were reconstructed. Individualized dose optimization techniques were used for this CT. COMPARISON: None. FINDINGS: The visualized lung bases are unremarkable. The visualized portions of the heart are within normal limits. Markedly abnormal GI Moderate fluid distention of the stomach. Marked fluid distention of most of the small bowel related to obstruction from a moderate umbilical hernia containing bowel. Normal caliber large bowel without. Normal appendix. Normal liver. Normal gallbladder and extrahepatic biliary system. Normal spleen. Normal pancreas. Normal bilateral adrenal glands. Normal right kidney. Normal left kidney. Markedly tortuous and ectatic calcified aorta with no actual aneurysm. Ectasia and L5 plaque of both common iliac arteries Normal inferior vena cava. Normal retroperitoneum. Normal urinary bladder. Normal abdominal wall. There are diffuse degenerative changes of the visualized lumbar spine. CT/Abdomen/Pelvis WITH Contrast IMPRESSION: Severe small bowel obstruction related to moderate umbilical hernia containing bowel. Electronically Signed: Douglas Horton MD at 18:27 EDT ,
--- NOTE | 2023-02-23 15:38 | EKG12_ITS ---
Test Reason : CP/SOB Blood Pressure : / mmHG Vent. Rate : 085 BPM Atrial Rate : 085 BPM P-R Int : 162 ms QRS Dur : 098 ms QT Int : 382 ms P-R-T Axes : 041 020 023 degrees QTc Int : 454 ms Normal sinus rhythm Normal ECG Confirmed by ALFREDO PENA, ROOPA ([id number]), editor greeting card ALBA YEH ([id number]) on 02/25/2023 12:39:06 PM Referred By: MARITZA/ANDREW/RU Confirmed By:ROOPA FUENTES MD
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
--- NOTE | 2023-02-23 15:45 | RAD_ITS ---
STUDY: X-RAY CHEST REASON FOR EXAM: Male, 82 years old. cough TECHNIQUE: Single AP portable view of the chest. COMPARISON: 05/29/2022. FINDINGS: The lungs are clear and expanded. Stable mild diffuse interstitial changes. No infiltrates. No effusions. There is no demonstrated pleural abnormality. Normal size heart. Normal mediastinum and alireza. There is prominence of the pulmonary hilar arteries without peripheral pulmonary vascular congestion, suggesting pulmonary hypertension. There is atherosclerotic calcification of the aortic arch with tortuosity. Normal visualized thoracic spine. Normal visualized ribs, clavicles, and shoulders. There is no demonstrated abnormality of the visualized soft tissue structures of the upper abdomen. RAD/Chest 1 View (Portable) IMPRESSION: No definite acute or significant abnormality seen. Electronically Signed: Douglas Horton MD at 16:19 EDT ,
[2023-02-23] MEDS: Ondansetron 4 MG/2 ML Vial IV ×2 (15:50→20:58)
[2023-02-23 15:57] LABS: Absolute Lymphocyte Count 2.22 X10^3/uL (0.83-4.51); Absolute Neutrophil Count 7.1 X10^3/uL (2.0-7.7); Basophil# 0.03 X10^3/uL; Basophil% 0.3 % (0-1); Eosinophil# 0.01 X10^3/uL; Eosinophils% 0.1 % (0-5); Hematocrit 46.7 % (40-54); Hemoglobin 15.6 g/dL (13.0-16.5); Lymphocyte # 2.22 X10^3/ul (0.83-4.51); Lymphocyte % 21.2 % (19-41); Mean Corp Hgb Conc 33.4 g/dL (32-36); Mean Corpuscular Volume 92.7 fL (80-94); Mean Platelet Vol. 10.2 fl (6.2-12.0); Monocyte# 1.09 X10^3/uL; Monocyte% 10.4 % (0-10); NRBC Flagged by Analyzer 0 % (0-5); Neutrophil # 7.07 X10^3/uL (2.7-7.7); Neutrophil % 67.6 % (47-70); Platelet Count 158 K/mm3 (150-450); RBC Distribution Width CV 14.6 % (11.6-14.6); RBC Distribution Width SD 49.9 fl (35.1-43.9); Red Blood Count 5.04 M/mm3 (4.6-6.2); White Blood Count 10.5 K/mm3 (4.4-11.0)
[2023-02-23 16:16] LABS: BNP,B-Type NATRIURETIC PEPTIDE 17.9 pg/mL (0-100)
[2023-02-23 16:19] LABS: ALB/GLOB Ratio 0.8 RATIO (0.9-2.4); AST(SGOT) 19 U/L (15-37); Alanine Aminotransfer ALT/SGPT 19 U/L (16-61); Albumin, Serum 3.7 g/dL (3.2-5.0); Alkaline Phosphatase 115 U/L (45-117); Anion Gap 6 (5-15); BUN 20 mg/dL (7-18); BUN/Creat Ratio 17.9 RATIO (10-20); Calcium,Total 9.8 mg/dL (8.5-10.1); Chloride 94 mmol/L (98-107); Creatinine, Serum 1.12 mg/dL (0.70-1.30); EST Glomerular Filtration Rate 67 mL/min (>60); Est Glom Filt Rate - Afr Amer 81 mL/min (>60); Globulin 4.7 g/dL (2.2-4.2); Glucose 139 mg/dL (74-106); Lipase 17 U/L (13-75); Potassium 3.7 mmol/L (3.5-5.1); Protein, Total 8.4 g/dL (6.4-8.2); Sodium Level 134 mmol/L (136-145); Troponin-I HS 6 pg/mL (3.0-78.0)
[2023-02-23 16:23] LABS: Lactic Acid 1.3 mmol/L (0.4-1.9)
--- NOTE | 2023-02-23 17:24 | ED.RN ---
spoke with pt's Gemma to check on her per pt request.
--- NOTE | 2023-02-23 17:46 | CT_ITS ---
STUDY: CTA CHEST REASON FOR EXAM: Male, 82 years old. PE RADIATION DOSAGE (If Supplied By Facility): CTDIvol = ( 19.49 ) mGy, DLP = ( 1783.75 ) mGycm TECHNIQUE: The examination was performed with the intravenous administration of IV 100mL [id number]-370. Post-processing of the angiographic images was performed, with multiplanar reformation and 3D reconstruction. Individualized dose optimization techniques were used for this CT. COMPARISON: 02/08/2015. FINDINGS: Normal enhancement of the main pulmonary artery and right and left pulmonary arteries. Normal enhancement of the bilateral peripheral pulmonary arteries. There is no demonstrated pulmonary embolism. Normal thoracic aorta and visualized great vessels. There is no demonstrated aortic dissection. Normal heart and pericardium. There are calcifications of the coronary arteries. Normal mediastinum. Normal hilar regions. Normal visualized trachea and bronchi. The lungs are hyper expanded, with flattening of the hemidiaphragms. There is evidence for centrilobular emphysema. No infiltrates. No effusions. Stable scattered bilateral calcified pleural plaques. There are degenerative changes of thoracic spine. See separate report for CT abdomen and pelvis. CT/CTA Chest W/WO Contrast IMPRESSION: Normal CTA chest examination, without a demonstrated pulmonary embolism or arterial dissection. COPD. Scattered calcified pleural plaques, stable. Electronically Signed: Douglas Horton MD at 18:47 EDT ,
--- NOTE | 2023-02-23 18:10 | ED.RN ---
spoke with pt's Gemma. son in waiting in room. updated on pt.
[2023-02-23 18:11] LABS: Bacteria 0 SEEN /hpf (None Seen); Mucous, Urine 0 SEEN /hpf (<or=2+)
[2023-02-23 18:18] LABS: Color, Urine Yellow (Yellow); Glucose, Dipstick Normal (Normal); Ketone-Dipstick Negative (Negative); Leukocyte Esterase-Dipstick 25 /ul (Negative); Nitrite-Dipstick Negative (Negative); Occult Blood-Urine 25 /ul (Negative); Protein-Dipstick 30 mg/dl (Negative); Urine Bilirubin Dipstick Negative (Negative); Urine Clarity Clear (Clear); Urine Urobilinogen 4 mg/dl (Normal)
[2023-02-23 18:32] LABS: Red Blood Cells-Urine 0-5 SEEN /hpf (0-5); Squamous Epithelial Cells - UA 0-5 SEEN /hpf (0-5); White Blood Cells 0-5 SEEN /hpf (0-5)
[2023-02-23 18:33] LABS: Amorphous Sediment 1+ PHOS
--- NOTE | 2023-02-23 20:40 | CON.PCM.HO_ITS ---
Assessment & Plan Assessment/Plan (1) SBO (small bowel obstruction): PLAN: Plan The patient is an 82 y/o M w/ PMHx: AAA/BL Iliac, HTN, HLD, REX, BPH, Chronic COPD w/ Chronic Hypoxic Respiratory Failure, Nonobstructive CAD, GERD who presents to the [facility] ED on 02/23/23 with history of approximately 3 days of genera lized fatigue, nausea, upper abdominal distention and discomfort with associated dyspnea with no bowel movement over the last 2 days and decreased appetite as well as decreased flatus with subjective complaint of fever and chills also reporting the dyspnea is worse when he tries to exert himself noted to be hypoxic on arrival to the ED. #1. Abdominal pain, nausea, emesis w/ severe SBO related to moderate umbilical hernia containing bowel: Admitted per general surgery to [facility], maintained on IVFs, NG insertion per surgery preference but at this point patient does not have an NG tube given s/p reduction of hernia per surgeon, strict I&Os, IV pain/anti- emetics PRN, NPO status per general surgery, planned operative intervention in AM, IV PPI, certainly with patient's concerns about extubation potential low threshold to involve pulmonary medicine per general surgery discretion, optimizing aerosols/IS. #2. Hyperglycemia, likely reactive: Admission glucose 139, will obtain hemoglobin A1c be cautious, trend CMP. #3. Hyponatremia, acute, mild: Likely secondary to GI losses, hypovolemic, admission sodium 134, chloride 94, continue judicious hydration, repeat CMP in AM. #4. Chronic COPD with chronic hypoxic respiratory failure (2L): Will maintain on oxygen with wean as tolerated to home oxygen supplementation, temporally hold home inhalers and transition in the interim to ATC duoneb, PRN albuterol, HOB, IS parameters. Following with [facility] pulmonary medicine. Certainly could involve pulmonary medicine to assuage patient's high concerns about extubation potential. #5. Nonobstructive CAD, nonischemic cardiomyopathy: Last noted catheterization 06/05/2022 with nonobstructive coronary arteries, normal LV size, wall motion and systolic function with EF 55% with recommended continued medical therapy at that time w/ asa, zetia, coreg, lasix, not on ACEI/ARB or statin secondary to intolerance, given acute SBO hold oral regimen with plan for resumption once cleared post-operatively per general surgery, judicious hydration. #6. Hypertension: Outpatient on Lasix, Coreg which will be held given acute SBO with plan for resumption once cleared post-operatively per general surgery, PRN hydralazine in interim and if needed may utilize IV lopressor. #7. Hyperlipidemia: Outpatient on Zetia regimen which will be held given acute SBO with plan for resumption once cleared post-operatively per general surgery, not on statin therapy secondary to intolerance. #8. Former tobacco use: Encourage continued tobacco cessation. #9. Abdominal aortic aneurysm/BL iliac aneurysm: 05/12/2020 with a mid infrarenal abdominal aortic aneurysm 2.56 x 3.4 cm, left common iliac 1.16 x 1.28 cm, right common iliac 1.81 x 1.86 cm ectatic, encourage continued follow- up with vascular surgery and continued outpatient monitoring. #10. REX: Given acute presentation as noted will maintain on supplemental oxygen, hold PAP therapy. #11. Gout: Outpatient on allopurinol which will be held given acute SBO with plan for resumption once cleared post-operatively per general surgery. #12. BPH: From current regimen listed noted on any specific BPH type medications, monitor for symptoms. #13. GERD: IV PPI. #14. DVT prophylaxis: SCDs. #15. CODE status: Patient HCPOA is his and his secondary is Arnold and living will is currently in place. Discussed CODE status at length including difference between FULL code, DNR-CCA and DNR-CC status. Following discussions about the differences in these status, requested Full Code status. Advanced Care Planning Face to Face Time: 16 minutes. Admission Evaluation Time spent evaluating chart, patient history, patient e valuation, care planning and discussion with specialists: 60 minutes. HPI Consult Data Date of Consult: 02/23/23 Attending Care Provider: Dr. Pedersen HPI Narrative Reason for Consultation: Medical management HPI Narrative: The patient is an 82 y/o M w/ PMHx: AAA/BL Iliac, HTN, HLD, REX, BPH, Chronic COPD w/ Chronic Hypoxic Respiratory Failure, Nonobstructive CAD, GERD who presents to the [facility] ED on 02/23/23 with history of approximately 3 days of generalized fatigue, nausea, upper abdominal distention and discomfort with associated dyspnea with no bowel movement over the last 2 days and decreased appetite as well as decreased flatus with subjective complaint of fever and chills also reporting the dyspnea is worse when he tries to exert himself noted to be hypoxic on arrival to the ED. He does state he has chronic exertional angina and has a prescription for sublingual nitroglycerin which usually helps. He follows with Pulmonary medicine at the [facility]. He notes currently pain improved, primarily pointing to a region inferior to his umbilicus, notes dull aching, 2-3/10 in severity currently. Discussed his reticence to transition to OR for hernia intervention as he is worried about ability to be extubated. Work-up in the ED included T97.8, heart rate 85, BP 125/93, respiratory rate 18, initially 85% on 2 L nasal cannula improving to 93% on 3 L nasal cannula, CBC with WBC 10.5, hemoglobin 15.6, platelet 150 without marked shift, CMP with sodium 134, chloride 94, carbon oxide 34, BUN/creatinine 20/1.12, glucose 149, lactic acid 1.3, T. bili 1.30 otherwise hepatic profile not marked appearing, troponin 6, BNP 17.9, lipase 17, urinalysis with specific gravity 1.010, protein 30, occult blood 25, negative nitrite, leukocyte Estrace only 25 with no marked urine to BCs or RBCs and no urine bacteria, CT abdomen pelvis with a severe small bowel obstruction related to a moderate umbilical hernia containing bowel, chest x-ray with no acute cardiopulmonary finding, CTA chest unremarkable with no demonstrated PE or dissection, chronic COPD type changes, scattered calcified pleural plaques which are stable, EKG with SR without acute evidence of i schemia. [facility] Medical History Abdominal aortic aneurysm (AAA) Anemia of unknown etiology Aneurysm, common iliac artery Atherosclerotic heart disease of [place] coronary artery without angina pectoris BPH (benign prostatic hyperplasia) BPH w urinary obs/LUTS Chronic back pain greater than 3 months duration Chronic respiratory failure with hypoxia COPD (chronic obstructive pulmonary disease) Diverticulosis Essential hypertension Gastroesophageal reflux disease Gout HLD (hyperlipidemia) Non-ischemic cardiomyopathy Premature ventricular contraction Sleep apnea Spinal stenosis Home Medications budesonide-formoterol HFA 160 mcg-4.5 mcg/actuation aerosol inhaler 2 puff inhalation BID SOB 12/20/14 [History Last Taken 05/18/17 07:00] aspirin 81 mg tablet,delayed release (Adult Aspirin Regimen) 81 mg PO QDAY #90 tabs 06/22/21 [Rx Last Taken 06/05/22] Handicap placard #1 ea 07/30/22 [Rx Last Taken Unknown] ipratropium 0.5 mg-albuterol 3 mg (2.5 mg base)/3 mL nebulization soln 3 ml inhalation Q6H PRN SOB 08/31/22 [History Last Taken Unknown] nitroglycerin 0.4 mg sublingual tablet 0.4 mg sublingual Q5M PRN Chest Pain #25 tabs 08/31/22 [Rx Last Taken Unknown] tiotropium bromide 18 mcg capsule with inhalation device 18 mcg inhalation DAILY SOB 08/31/22 [History Last Taken Unknown] allopurinol 300 mg tablet 300 mg PO DAILY gout #90 tabs 11/07/22 [Rx Last Taken Unknown] carvedilol 25 mg tablet 25 mg PO BID heart health #180 tabs 11/07/22 [Rx Last Taken Unknown] ezetimibe 10 mg tablet 10 mg PO DAILY #90 tabs 11/07/22 [Rx Last Taken Unknown] furosemide 40 mg tablet 20 mg (1/2 x 40 mg) PO BID water pill #90 tabs 11/07/22 [Rx Last Taken Unknown] potassium gluconate 595 mg (99 mg) tablet 595 mg PO DAILY #90 tabs 11/07/22 [Rx Last Taken Unknown] Allergy/AdvReac Type Severity Reaction Status Date / Time Aumjncx-NFO-CdB Reductase Allergy Chest Verified 02/23/23 15:28 Inhibitor tightness [Xegxgiv-Zvu-Crt Reductase Inhibitor] Sulfa (Sulfonamide Allergy Swelling Verified 02/23/23 15:28 Antibiotics) venom-honey bee Allergy Anaphylaxis Verified 02/23/23 15:28 [bee venom (honey bee)] Corticosteroids AdvReac GROUCHY Verified 02/23/23 15:28 (Glucocorticoids) [steroids] Family History Sister Diabetes Mother Hypertension CAD (coronary artery disease) Father No problems noted. Other Asthma Breast cancer Heart disease Hyperlipemia Respiratory disease Surgical History History of cataract surgery History of colonoscopy (2009) History of laminectomy History of left heart catheterization (06/05/22) History of right and left heart catheterization (10/02/12) History of tonsillectomy S/P decompression of ulnar nerve at elbow Social History (Updated 02/23/23 @ 20:[address] Paola Wilson MD) household members: spouse Smoking Status: Former smoker how long ago did patient quit smokin years ago alcohol intake: current alcohol intake frequency: holidays/special occasions only substance use type: does not use caffeine: No ROS ROS Narrative Admission Review of Systems: CONSTITUTIONAL: No weight loss, fever, chills, + weakness or fatigue. HEENT: Eyes: No visual loss, blurred vision, double vision or yellow sclerae. Ears, Nose, Throat: No hearing loss, sneezing, congestion, runny nose or sore throat. SKIN: No rash or itching, lesions, wounds. CARDIOVASCULAR: No chest pain, chest pressure or chest discomfort, palpitations, edema, orthopnea, syncopal events. RESPIRATORY: + Chronic shortness of breath, occasional cough without marked sputum, occasional wheezing, No hemoptysis. GASTROINTESTINAL: + Anorexia, nausea, vomiting, constipation, lack of flatus, abdominal pain. No melena, BRBPR. GENITOURINARY: No dysuria, frequency, urgency or retention. NEUROLOGICAL: No headache, dizziness, syncope, paralysis, ataxia, numbness or tingling in the extremities, focal weakness, change in bowel or bladder control, seizure. MUSCULOSKELETAL: + muscle, back pain, joint pain or stiffness. HEMATOLOGIC: + Easy bleeding or bruising. LYMPHATICS: No enlarged nodes. No history of splenectomy. PSYCHIATRIC: No history of depression or anxiety. ENDOCRINOLOGIC: No reports of sweating, cold or heat intolerance. No polyuria or polydipsia. ALLERGIES: + history of anaphylaxis. Physical Exam Narrative Physical Examination: General: Awake, alert, oriented x 3 and cooperative, seated upright in the ED bed in no apparent distress, pain is certainly lessened, still some discomfort he points to just inferior to his umbilicus, flat affect and fatigued appeari ng.. Skin: Normal color, normal turgor, no icterus, no cyanosis except occasional staged ecchymoses and bilateral lower extremity stasis skin changes. HEENT: AT/NC, EOMI, PERRLA, dry MM, no carotid bruits or JVD noted. Lungs: Diminished, greater bases, moderate effort, no evidence of any respirato ry distress, currently no appreciated rales, ronchi or wheezing. Heart: Regular rate and rhythm; no gallop, rub audible. Abdomen: Soft, mild discomfort to palpation bilateral lower quadrant and perium bilical but no rebound or guarding currently, distended appearance, significantly reduced bowel sounds/near absent, difficult to assess HSM secondary to discomfort. Extremities: No cyanosis, clubbing, or edema. Neurological: Patient awake, alert, oriented as noted, cognitive function intact; pupils equally reactive to light and accommodation, cranial nerves II- XII grossly normal, moving all 4 extremities, no focal deficits, strength moderately to severely global decrease secondary to acute presentation. Psychiatric: Affect appears flat, fatigued, no acute evidence of depressive or anxiety feelings. Lab / Micro Data 02/23/23 15:23 02/23/23 15:23 Labs: Laboratory Results - last 24 hr 02/23/23 15:23: WBC 10.5, RBC 5.04, Hgb 15.6, Hct 46.7, MCV 92.7, MCH 31.0, MCHC 33.4, RDW Std Deviation 49.9 H, RDW Coeff of Pito 14.6, Plt Count 158, MPV 10.2, Immature Gran % (Auto) 0.400, Neut % (Auto) 67.6, Lymph % (Auto) 21.2, [place] % (Auto) 10.4 H, Eos % (Auto) 0.1, Baso % (Auto) 0.3, Absolute Neuts (auto) 7.1, Absolute Lymphs (auto) 2.22, Nucleated RBC % 0, Sodium 134 L, Potassium 3.7, Chloride 94 L, Carbon Dioxide 34.0 H, Anion Gap 6, BUN 20 H, Creatinine 1.12, Est GFR (MDRD) Af Amer 81, Est GFR (MDRD) Non-Af 67, BUN/Creatinine Ratio 17.9, Glucose 139 H, Calcium 9.8, Total Bilirubin 1.30 H, AST 19, ALT 19, Alkaline Phosphatase 115, Troponin I High Sens 6, B-Natriuretic Peptide 17.9, Total Protein 8.4 H, Albumin 3.7, Globulin 4.7 H, Albumin/Globulin Ratio 0.8 L, Lipase 17 02/23/23 15:45: Lactic Acid 1.3 02/23/23 18:10: Urine Color Yellow, Urine Clarity Clear, Urine pH 8.0, Ur Specific [place] 1.010, Urine Protein 30 H, Urine Glucose (UA) Normal, Urine Ketones Negative, Urine Occult Blood 25 H, Urine Nitrite Negative, Urine Bilirubin Negative, Urine Urobilinogen 4 H, Ur Leukocyte Esterase 25 H, Urine RBC 0-5 SEEN, Urine WBC 0-5 SEEN, Ur Squamous Epith Cells 0-5 SEEN, Amorphous Sediment 1+ PHOS, Urine Bacteria 0 SEEN, Urine Mucus 0 SEEN Radiology Impression Abdomen/Pelvis CT 02/23/23 15:38 IMPRESSION: Severe small bowel obstruction related to moderate umbilical hernia containing bowel. Electronically Signed: Douglas Horton MD at 18:27 EDT Reading Location ID and State: [facility] / [employer] , Service support , Chest X-Ray 02/23/23 15:45 IMPRESSION: No definite acute or significant abnormality seen. Electronically Signed: Douglas Horton MD at 16:19 EDT Reading Location ID and State: [facility] / [place] , Service support , Chest CTA 02/23/23 17:46 IMPRESSION: Normal CTA chest examination, without a demonstrated pulmonary embolism or arterial dissection. COPD. Scattered calcified pleural plaques, stable. Electronically Signed: Douglas Horton MD at 18:47 EDT Reading Location ID and State: [facility] / [employer] , Service support , Charges/Coding Visit Charges Office Visits / Consults: 53072 IP Consult L4 Procedures Hospitalists Procedures: 67440 Advncd Care Plan 30 Min
--- NOTE | 2023-02-23 20:43 | PCM.HP.STD ---
HPI - General HPI Narrative MARIA INES MENENDEZ, is a 82 M who presents with vomiting and abdominal pain. Patient reports this is been going on today. He says he has no bowel movement in 3 days. He says he has a well-known umbilical hernia has been there for many years. There is not much pain at the hernia site. Patient also has severe COPD and is very concerned about having anesthesia. [facility] Medical History Abdominal aortic aneurysm (AAA) Anemia of unknown etiology Aneurysm, common iliac artery Atherosclerotic heart disease of [place] coronary artery without angina pectoris BPH (benign prostatic hyperplasia) BPH w urinary obs/LUTS Chronic back pain greater than 3 months duration Chronic respiratory failure with hypoxia COPD (chronic obstructive pulmonary disease) Diverticulosis Essential hypertension Gastroesophageal reflux disease Gout HLD (hyperlipidemia) Non-ischemic cardiomyopathy Premature ventricular contraction Sleep apnea Spinal stenosis Home Medications budesonide-formoterol HFA 160 mcg-4.5 mcg/actuation aerosol inhaler 2 puff inhalation BID SOB 12/20/14 [History Last Taken 05/18/17 07:00] aspirin 81 mg tablet,delayed release (Adult Aspirin Regimen) 81 mg PO QDAY #90 tabs 06/22/21 [Rx Last Taken 06/05/22] Handicap placard #1 ea 07/30/22 [Rx Last Taken Unknown] ipratropium 0.5 mg-albuterol 3 mg (2.5 mg base)/3 mL nebulization soln 3 ml inhalation Q6H PRN SOB 08/31/22 [History Last Taken Unknown] nitroglycerin 0.4 mg sublingual tablet 0.4 mg sublingual Q5M PRN Chest Pain #25 tabs 08/31/22 [Rx Last Taken Unknown] tiotropium bromide 18 mcg capsule with inhalation device 18 mcg inhalation DAILY SOB 08/31/22 [History Last Taken Unknown] allopurinol 300 mg tablet 300 mg PO DAILY gout #90 tabs 11/07/22 [Rx Last Taken Unknown] carvedilol 25 mg tablet 25 mg PO BID heart health #180 tabs 11/07/22 [Rx Last Taken Unknown] ezetimibe 10 mg tablet 10 mg PO DAILY #90 tabs 11/07/22 [Rx Last Taken Unknown] furosemide 40 mg tablet 20 mg (1/2 x 40 mg) PO BID water pill #90 tabs 11/07/22 [Rx Last Taken Unknown] potassium gluconate 595 mg (99 mg) tablet 595 mg PO DAILY #90 tabs 11/07/22 [Rx Last Taken Unknown] Allergy/AdvReac Type Severity Reaction Status Date / Time Nsiykjr-FIU-GuO Reductase Allergy Chest Verified 02/23/23 15:28 Inhibitor tightness [Lkavelc-Ihq-Bsd Reductase Inhibitor] Sulfa (Sulfonamide Allergy Swelling Verified 02/23/23 15:28 Antibiotics) venom-honey bee Allergy Anaphylaxis Verified 02/23/23 15:28 [bee venom (honey bee)] Corticosteroids AdvReac GROUCHY Verified 02/23/23 15:28 (Glucocorticoids) [steroids] Family History Sister Diabetes Mother Hypertension CAD (coronary artery disease) Other Asthma Breast cancer Heart disease Hyperlipemia Respiratory disease Surgical History History of cataract surgery History of colonoscopy (2009) History of laminectomy History of left heart catheterization (06/05/22) History of right and left heart catheterization (10/02/12) History of tonsillectomy S/P decompression of ulnar nerve at elbow Social History Smoking Status: Former smoker how long ago did patient quit smokin years ago alcohol intake: current alcohol intake frequency: holidays/special occasions only substance use type: does not use caffeine: No ROS Constitutional Constitutional: Denies anorexia, chills or fatigue Eyes Eyes: Denies blurry vision ENT HEENT: Denies abnormal hearing Cardiovascular Cardiovascular: Denies chest pain Respiratory/Chest Respiratory/Chest: Reports cough, dyspnea and dyspnea on exertion Gastrointestinal Gastrointestinal: Reports abdominal pain, nausea and vomiting; Denies dysphagia, hematemesis or hematochezia Genitourinary Genitourinary: Denies change in urinary stream Musculoskeletal Musculoskeletal: Denies abnormal gait Integumentary Integumentary: Denies new lesions Neurologic Neurologic: Denies abnormal gait Psychiatric Psychiatric: Denies anxiety Endocrine Endocrinology: Denies flushing Vital Signs Vital Signs Vital Signs: 02/23/23 15:20 02/23/23 15:23 02/23/23 15:26 Temperature 97.8 F Temperature Source Temporal Pulse Rate 85 Respiratory Rate 18 Respiratory Effort Short of Breath Labored Respiratory Depth Normal Respiratory Pattern Normal Blood Pressure 125/93 H Blood Pressure Mean 103 Pulse Ox 85 94 Oxygen Delivery Method Nasal Cannula Nasal Cannula Oxygen Flow Rate (L/min) 2 3 02/23/23 15:26 02/23/23 18:11 02/23/23 18:12 Temperature Temperature Source Pulse Rate 83 Respiratory Rate 18 Respiratory Effort Short of Breath Respiratory Depth Respiratory Pattern Blood Pressure 119/77 Blood Pressure Mean 91 Pulse Ox 94 93 Oxygen Delivery Method Nasal Cannula Nasal Cannula Oxygen Flow Rate (L/min) 3 3 02/23/23 20:09 02/23/23 20:39 Temperature 97.8 F Temperature Source Temporal Pulse Rate 84 80 Respiratory Rate 20 H 18 Respiratory Effort Respiratory Depth Respiratory Pattern Blood Pressure 109/79 116/93 H Blood Pressure Mean 89 100 Pulse Ox 90 91 Oxygen Delivery Method Nasal Cannula Nasal Cannula Oxygen Flow Rate (L/min) 3 3 Physical Exam Const oriented x3 and no apparent distress Resp normal respiratory effort Cardio regular rate and regular rhythm GI soft to palpation Inspection: abdominal distention Extremity normal to inspection Results Lab / Micro Data 02/23/23 15:23 02/23/23 15:23 Labs: Laboratory Results - last 24 hr 02/23/23 15:23: WBC 10.5, RBC 5.04, Hgb 15.6, Hct 46.7, MCV 92.7, MCH 31.0, MCHC 33.4, RDW Std Deviation 49.9 H, RDW Coeff of Pito 14.6, Plt Count 158, MPV 10.2, Immature Gran % (Auto) 0.400, Neut % (Auto) 67.6, Lymph % (Auto) 21.2, [place] % (Auto) 10.4 H, Eos % (Auto) 0.1, Baso % (Auto) 0.3, Absolute Neuts (auto) 7.1, Absolute Lymphs (auto) 2.22, Nucleated RBC % 0, Sodium 134 L, Potassium 3.7, Chloride 94 L, Carbon Dioxide 34.0 H, Anion Gap 6, BUN 20 H, Creatinine 1.12, Est GFR (MDRD) Af Amer 81, Est GFR (MDRD) Non-Af 67, BUN/Creatinine Ratio 17.9, Glucose 139 H, Calcium 9.8, Total Bilirubin 1.30 H, AST 19, ALT 19, Alkaline Phosphatase 115, Troponin I High Sens 6, B-Natriuretic Peptide 17.9, Total Protein 8.4 H, Albumin 3.7, Globulin 4.7 H, Albumin/Globulin Ratio 0.8 L, Lipase 17 02/23/23 15:45: Lactic Acid 1.3 02/23/23 18:10: Urine Color Yellow, Urine Clarity Clear, Urine pH 8.0, Ur Specific [place] 1.010, Urine Protein 30 H, Urine Glucose (UA) Normal, Urine Ketones Negative, Urine Occult Blood 25 H, Urine Nitrite Negative, Urine Bilirubin Negative, Urine Urobilinogen 4 H, Ur Leukocyte Esterase 25 H, Urine RBC 0-5 SEEN, Urine WBC 0-5 SEEN, Ur Squamous Epith Cells 0-5 SEEN, Amorphous Sediment 1+ PHOS, Urine Bacteria 0 SEEN, Urine Mucus 0 SEEN Radiology Impression Abdomen/Pelvis CT 02/23/23 15:38 IMPRESSION: Severe small bowel obstruction related to moderate umbilical hernia containing bowel. Electronically Signed: Douglas Horton MD at 18:27 EDT Reading Location ID and State: [facility] / [place] , Service support , Chest X-Ray 02/23/23 15:45 IMPRESSION: No definite acute or significant abnormality seen. Electronically Signed: Douglas Horton MD at 16:19 EDT Reading Location ID and State: [facility] / [place] , Service support , Chest CTA 02/23/23 17:46 IMPRESSION: Normal CTA chest examination, without a demonstrated pulmonary embolism or arterial dissection. COPD. Scattered calcified pleural plaques, stable. Electronically Signed: Douglas Horton MD at 18:47 EDT Reading Location ID and State: [facility] / [place] , Service support , Assessment & Plan Assessment/Plan (1) Hernia, umbilical: QUALIFIERS: Obstruction and gangrene presence: with obstruction but without gangrene Qualified Code(s): K42.0 - Umbilical hernia with obstruction, without gangrene (2) SBO (small bowel obstruction): PLAN: Plan The patient was having abdominal pain and CT scan revealed an umbilical hernia causing a small bowel obstruction. I was able to easily reduce the hernia which should help with the small bowel obstruction but I believe the hernia needs to be repaired to prevent immediate recurrence of the small bowel obstruction. It is rather large. It appears to measure about 3 to 4 cm. The patient does have severe COPD. I discussed this with anesthesia and with the supervisor wool shearing. I will consult the hospitalist tondeborah to optimize him for surgery tomorrow. I discussed laparoscopic hybrid approach to repair this umbilical hernia and then placed laparoscopic mesh so that I can provide a large overlap. I believe fixing this without mesh would be detrimental as the patient has COPD and coughs a lot. I discussed the risks including but not limited to bleeding, infection, injury to underlying organs such as the bowel, heart attack or stroke or . Patient understands the risks. I also discussed possibility of having to go to the ICU on a ventilator after surgery. Patient consents for surgery and I will take him tomorrow. Burak Pedersen MD Pager: [facility] [address] [place] [address] [address] [place] [address] Office:
--- NOTE | 2023-02-23 22:18 | ED.RN ---
BM while in ED
[2023-02-23] MEDS: 0.9% Normal Saline 1,000 ML 100 ML IV (23:08)
[2023-02-23] MEDS: Ipratropium/Albuterol Sulfate 3 ML AMPUL.NEB INHALATION (23:28)
[2023-02-24 04:29] VITALS: BP 109/71; PULSE 70; RESP 18; TEMP 36.3; O2SAT 96
[2023-02-24 07:05] LABS: Absolute Lymphocyte Count 1.11 X10^3/uL (0.83-4.51); Absolute Neutrophil Count 4.7 X10^3/uL (2.0-7.7); Basophil# 0.01 X10^3/uL; Basophil% 0.1 % (0-1); Eosinophil# 0.08 X10^3/uL; Eosinophils% 1.2 % (0-5); Hematocrit 40.1 % (40-54); Hemoglobin 13.1 g/dL (13.0-16.5); Lymphocyte # 1.11 X10^3/ul (0.83-4.51); Lymphocyte % 16.1 % (19-41); Mean Corp Hgb Conc 32.7 g/dL (32-36); Mean Corpuscular Volume 94.8 fL (80-94); Mean Platelet Vol. 10.3 fl (6.2-12.0); Monocyte# 0.97 X10^3/uL; Monocyte% 14.1 % (0-10); NRBC Flagged by Analyzer 0 % (0-5); Neutrophil # 4.72 X10^3/uL (2.7-7.7); Neutrophil % 68.4 % (47-70); Platelet Count 121 K/mm3 (150-450); RBC Distribution Width CV 14.8 % (11.6-14.6); RBC Distribution Width SD 51.8 fl (35.1-43.9); Red Blood Count 4.23 M/mm3 (4.6-6.2); White Blood Count 6.9 K/mm3 (4.4-11.0)
[2023-02-24 07:12] VITALS: PULSE 84; RESP 19; O2SAT 94
[2023-02-24] MEDS: Ipratropium/Albuterol Sulfate 3 ML AMPUL.NEB INHALATION (07:13)
--- NOTE | 2023-02-24 07:19 | PN.HOSP_ITS ---
Reason for Visit Reason for Visit: Diagnoses Umbilical hernia with obstruction, without gangrene (02/23/23) Unspecified intestinal obstruction, unspecified as to partial versus complete obstruction (02/23/23) Subjective Subjective Feels ok. He is thinking about having his son drive him to [place] to be seen by surgery up there. Objective Data Objective Data Vital Signs: Vital Signs Temp Pulse Resp BP Pulse Ox O2 Del Method O2 Flow Rate 36.3 C L 70 18 109/71 96 Simple Mask 3 02/24/23 04:29 02/24/23 04:29 02/24/23 04:29 02/24/23 04:29 02/24/23 04:29 02/24/23 04:29 02/24/23 04:29 Oxygen Flow Rate (L/min) 3 Oxygen Delivery Method Simple Mask Weight: 105.5 kg Body Mass Index (BMI) 35.4 Intake & Output: Intake and Output for Last 24 Hours 02/22/23 02/23/23 02/24/23 23:59 23:59 23:59 Intake Total 110 / 110 Balance 110 / 110 Lab / Micro Data 02/24/23 06:06 02/24/23 06:06 Labs: Laboratory Results - last 24 hr 02/23/23 15:23: WBC 10.5, RBC 5.04, Hgb 15.6, Hct 46.7, MCV 92.7, MCH 31.0, MCHC 33.4, RDW Std Deviation 49.9 H, RDW Coeff of Pito 14.6, Plt Count 158, MPV 10.2, Immature Gran % (Auto) 0.400, Neut % (Auto) 67.6, Lymph % (Auto) 21.2, [place] % (Auto) 10.4 H, Eos % (Auto) 0.1, Baso % (Auto) 0.3, Absolute Neuts (auto) 7.1, Absolute Lymphs (auto) 2.22, Nucleated RBC % 0, Sodium 134 L, Potassium 3.7, Chloride 94 L, Carbon Dioxide 34.0 H, Anion Gap 6, BUN 20 H, Creatinine 1.12, Est GFR (MDRD) Af Amer 81, Est GFR (MDRD) Non-Af 67, BUN/Creatinine Ratio 17.9, Glucose 139 H, Calcium 9.8, Total Bilirubin 1.30 H, AST 19, ALT 19, Alkaline Phosphatase 115, Troponin I High Sens 6, B-Natriuretic Peptide 17.9, Total Protein 8.4 H, Albumin 3.7, Globulin 4.7 H, Albumin/Globulin Ratio 0.8 L, Lipase 17 02/23/23 15:45: Lactic Acid 1.3 02/23/23 18:10: Urine Color Yellow, Urine Clarity Clear, Urine pH 8.0, Ur Specific [place] 1.010, Urine Protein 30 H, Urine Glucose (UA) Normal, Urine Ketones Negative, Urine Occult Blood 25 H, Urine Nitrite Negative, Urine Bilirubin Negative, Urine Urobilinogen 4 H, Ur Leukocyte Esterase 25 H, Urine RBC 0-5 SEEN, Urine WBC 0-5 SEEN, Ur Squamous Epith Cells 0-5 SEEN, Amorphous Sediment 1+ PHOS, Urine Bacteria 0 SEEN, Urine Mucus 0 SEEN 02/24/23 06:06: WBC 6.9, RBC 4.23 L, Hgb 13.1, Hct 40.1, MCV 94.8 H, MCH 31.0, MCHC 32.7, RDW Std Deviation 51.8 H, RDW Coeff of Pito 14.8 H, Plt Count 121 L, MPV 10.3, Immature Gran % (Auto) 0.100, Neut % (Auto) 68.4, Lymph % (Auto) 16.1 L, [place] % (Auto) 14.1 H, Eos % (Auto) 1.2, Baso % (Auto) 0.1, Absolute Neuts (auto) 4.7, Absolute Lymphs (auto) 1.11, Nucleated RBC % 0 Radiography Diagnostic Testing: Radiology Impression Abdomen/Pelvis CT 02/23/23 15:38 IMPRESSION: Severe small bowel obstruction related to moderate umbilical hernia containing bowel. Electronically Signed: Douglas Horton MD at 18:27 EDT , Chest X-Ray 02/23/23 15:45 IMPRESSION: No definite acute or significant abnormality seen. Electronically Signed: Douglas Horton MD at 16:19 EDT , Chest CTA 02/23/23 17:46 IMPRESSION: Normal CTA chest examination, without a demonstrated pulmonary embolism or arterial dissection. COPD. Scattered calcified pleural plaques, stable. Electronically Signed: Douglas Horton MD at 18:47 EDT , Physical Exam Const Constitutional Narrative: sitting up bed. Non-toxic. Resp normal respiratory effort, no retractions, no use of accessory muscles and clear to auscultation bilaterally Cardio regular rate, regular rhythm, S1 normal heart sound and S2 normal heart sound GI GI Narrative: distended. hypoactive BS. Assessment & Plan Assessment/Plan (1) SBO (small bowel obstruction): PLAN: CT showed severe SBO related to umbilical hernia. Mgmt per gen surg. To OR today as this requires urgent assessment. Pt medically optimized as much as possible, but NSQIP shows pt is a risk candidate given his advanced age and multiple medical comorbidities Patient apparently left AMA after my evaluation. (2) Hyperglycemia: PLAN: No diagnosis of DM2. This may be reactive. A1c pending Start SSI, in case glucose needs managed (3) Hyponatremia: PLAN: Resolved w IVF (4) Hypokalemia: PLAN: replace check Mag and replace if low. 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 Normally on 2l at home. Has increased to 6 l/m. Wean oxygen as tolerate. Higher risk for not coming off ventilator post-op. If patient does have flare up of COPD, grouchy would not be an indication to withhold steroids. * Nonischemic cardiomyopathy: L1 with nonobstructive coronary arteries, normal LV size, wall motion and systolic function with EF 55% with recommended continued medical therapy at that time w/ asa, zetia, coreg, lasix, not on ACEI/ARB or statin secondary to intolerance. Meds held given SBO and pending surgery. * Hypertension: Currently stable. Lasix and carvedilol held. PRN hydralazine in interim. Consider IV metoprolol post-op depending on status. * Hyperlipidemia: Zetia held. Known statin intolerance. * Abdominal aortic aneurysm/BL iliac aneurysm: 05/12/2020 with a mid infrarenal abdominal aortic aneurysm 2.56 x 3.4 cm, left common iliac 1.16 x 1.28 cm, right common iliac 1.81 x 1.86 cm ectatic, encourage continued follow-up with vascular surgery and continued outpatient monitoring. * REX: Given acute presentation as noted will maintain on supplemental oxygen, hold PAP therapy. * Gout: No acute flare. Allopurinol held. * BPH: no home meds. Anticipate he may need prolonged use of hardy post-op. If has issues w urinary retention, consider tamsulosin. * GERD: IV PPI. DVT prophylaxis: SCDs. CODE status: Full. Charges/Coding Visit Charges Inpatient E&M: 47609 Subs Hosp L2
[2023-02-24 07:29] LABS: Anion Gap 5 (5-15); BUN 23 mg/dL (7-18); Calcium,Total 8.3 mg/dL (8.5-10.1); Chloride 101 mmol/L (98-107); EST Glomerular Filtration Rate 76 mL/min (>60); Est Glom Filt Rate - Afr Amer 92 mL/min (>60); Estimated Creatinine Clearance 56.05 ml/min; Glucose 113 mg/dL (74-106); Potassium 3.2 mmol/L (3.5-5.1); Sodium Level 138 mmol/L (136-145)
[2023-02-24 08:25] VITALS: O2SAT 93
[2023-02-24 08:35] LABS: Hemoglobin A1c 6.2 % (3.8-5.6)
[2023-02-24 08:38] VITALS: BP 106/75; PULSE 76; RESP 18; TEMP 36.4; O2SAT 93; BMI 35.4
[2023-02-24] MEDS: 0.9% Normal Saline 1,000 ML 100 ML IV (08:57)
[2023-02-24] MEDS: Potassium Chloride 10mEq/100mL 10 MEQ/100 ML IV.SOLN. 100 MEQ IV BOLUS (09:11)
--- NOTE | 2023-02-24 09:36 | PN_ITS ---
Progress Note The patient is now refusing surgery as anesthesia cannot guarantee that he will be extubated immediately after surgery. He would like to be transferred to [facility]. I called the [facility] transfer line and they advised that it would be 4 to 5 days. The patient wants to leave AMA and drive to [place]. I advised the patient that it would be in his best interest to have the surgery here and that I could not discharge him as I have not fix the problem that caused him to be admitted. The patient still insists on leaving AMA to drive to [place] for his surgery. Burak Pedersen MD Pager: [facility] [address] [place] [address] [address] [place] [address] Office:
--- NOTE | 2023-02-24 09:36 | PCM.PN.BLA ---
Progress Note The patient is now refusing surgery as anesthesia cannot guarantee that he will be extubated immediately after surgery. He would like to be transferred to [facility]. I called the [facility] transfer line and they advised that it would be 4 to 5 days. The patient wants to leave AMA and drive to [place]. I advised the patient that it would be in his best interest to have the surgery here and that I could not discharge him as I have not fix the problem that caused him to be admitted. The patient still insists on leaving AMA to drive to [place] for his surgery. Burak Pedersen MD Pager: [facility] [address] [place] [address] [address] [place] [address] Office:
--- NOTE | 2023-02-24 11:48 | NURSING ---
Pt wanted for his Family to take him to [facility] as pt decided he wanted to have the surgery done there. Pt Signed AMA paper and Dr. Pedersen aware.
== END 2023-02-24 11:30 | disposition left against medical advice (07) | DRG 394 ==
LOC: ED 20:37 → MS3 20:48
PROVIDERS: Family Medicine; Nurse Practitioner; Admitting Provider Surgery; Emergency Provider Emergency Medicine; PCP Internal Medicine; Visit Provider Surgery
DX: K42.0 Umbilical hernia with obstruction, without gangrene (principal); I42.8 Other cardiomyopathies; E87.1 Hypo-osmolality and hyponatremia; J96.11 Chronic respiratory failure with hypoxia; I72.3 Aneurysm of iliac artery; J44.9 Chronic obstructive pulmonary disease, unspecified; I71.40 Abdominal aortic aneurysm, without rupture, unspecified; I25.10 Atherosclerotic heart disease of native coronary artery without angina pectoris; I10 Essential (primary) hypertension; E78.5 Hyperlipidemia, unspecified; E86.1 Hypovolemia; M10.9 Gout, unspecified; K21.9 Gastro-esophageal reflux disease without esophagitis; E87.6 Hypokalemia; G47.33 Obstructive sleep apnea (adult) (pediatric); Z99.81 Dependence on supplemental oxygen; N40.0 Benign prostatic hyperplasia without lower urinary tract symptoms; R73.9 Hyperglycemia, unspecified; Z79.82 Long term (current) use of aspirin; Z79.899 Other long term (current) drug therapy; Z87.891 Personal history of nicotine dependence; Z53.29 Procedure and treatment not carried out because of patient's decision for other reasons
CPT/HCPCS: 36415; 71045; 71275; 74177; 80048; 80053; 81001; 83036; 83605; 83690; 83880; 84484; 85025; 93005; 94640; 94668; 99252; 99285; J7030; A4216; G0463; J2405

== ENCOUNTER → 2023-03-22 | Outpatient (CLI) | payer MEDICARE, SELFPAY | END | disposition home or self-care (01) | LOC: LABSPEC 14:29 | PROVIDERS: PCP Internal Medicine; Referring Provider Surgery; Visit Provider Surgery | DX: R19.8 Other specified symptoms and signs involving the digestive system and abdomen (principal) | CPT/HCPCS: 87070; 87075; 87077; 87186; 87205 ==

== ENCOUNTER 2023-03-29 16:07 | Emergency (ER) | payer MEDICARE, SELFPAY ==
[2023-03-29 16:08] VITALS: BP 133/87; PULSE 101; RESP 22; TEMP 36.1; O2SAT 90
--- NOTE | 2023-03-29 16:26 | EKG12_ITS ---
Test Reason : SOB Blood Pressure : / mmHG Vent. Rate : 087 BPM Atrial Rate : 087 BPM P-R Int : 174 ms QRS Dur : 098 ms QT Int : 374 ms P-R-T Axes : 037 010 031 degrees QTc Int : 450 ms Normal sinus rhythm Normal ECG Confirmed by ALFREDO PENA, ROOPA ([id number]), website/blog editor ALBA YEH ([id number]) on 04/01/2023 1:13:15 PM Referred By: Confirmed By:ROOPA FUENTES MD
--- NOTE | 2023-03-29 16:26 | CT_ITS ---
STUDY: CTA Chest WO/W Contrast Injection 03/29/2023 5:47 PM REASON FOR EXAM: Male, 82 years old. shortness of breath, concerns for PE TECHNIQUE: The examination was performed with the intravenous administration of IV 100mL Isovue-370 contrast material. Post-processing of the angiographic images was performed, with axial imaging and 3D reconstruction. MIPS images were obtained. Individualized dose optimization techniques were used for this CT. COMPARISON: 02.23.23. FINDINGS: There are degenerative changes of the shoulders. There is no pneumothorax. Bilateral calcified pleural plaques. There are scattered blebs and bullae. This can be seen in pulmonary emphysema. There are calcifications of the coronary arteries. Normal mediastinum. Normal hilar regions. Normal pulmonary arteries. There is atherosclerotic calcification of the aortic arch with tortuosity and elongation of the aortic arch and descending thoracic aorta. There are multi-level degenerative changes of the thoracic spine. There are no acute findings of the upper abdomen. CT/CTA Chest W/WO Contrast IMPRESSION: There are no acute findings. Electronically Signed: Andrew Byrnes MD at 17:50 EDT ,
--- NOTE | 2023-03-29 16:39 | ED.VIS.DYS ---
HPI <MAYRA Sanchez - Last Filed: 03/29/23 20:02> History of Present Illness Chief Complaint: Shortness of Breath Narrative Narrative: Patient presenting today from his academic vice president office, Dr. Sierra with concerns that he could have a pulmonary embolism. He reports that his academic vice president obtained blood work this morning to look for blood clots and it was positive so she sent him in. Patient recently had umbilical hernia surgery performed about a month ago at the [facility] and over the past few weeks has noticed increased shortness of breath at rest and with exertion. He does have a history of COPD and does normally use 2L O2 at home but has recently needed 3 L and cannot take more than 2 steps without feeling short of breath. He does report pain to the left side of his chest below his breast that radiates into the back and is worse in the back. He denies a history of blood clots and is not on any blood thinners. He denies any fever, chills, abdominal pain, nausea, vomiting. He is currently on an antibiotic from Dr. Campoverde due to concerns for infection from the surgical incision site in his umbilicus. [facility] <MAYRA Sanchez - Last Filed: 03/29/23 20:02> [facility] Medical History Abdominal aortic aneurysm (AAA) Anemia of unknown etiology Aneurysm, common iliac artery Atherosclerotic heart disease of [place] coronary artery without angina pectoris BPH (benign prostatic hyperplasia) BPH w urinary obs/LUTS Chronic back pain greater than 3 months duration Chronic respiratory failure with hypoxia COPD (chronic obstructive pulmonary disease) Diverticulosis Essential hypertension Gastroesophageal reflux disease Gout HLD (hyperlipidemia) Non-ischemic cardiomyopathy Premature ventricular contraction Sleep apnea Spinal stenosis Home Medications budesonide-formoterol HFA 160 mcg-4.5 mcg/actuation aerosol inhaler 2 puff inhalation BID SOB 12/20/14 [History Last Taken 02/23/23 06:00] aspirin 81 mg tablet,delayed release (Adult Aspirin Regimen) 81 mg PO QDAY #90 tabs 06/22/21 [Rx Last Taken 02/23/23 06:00] Handicap placard #1 ea 07/30/22 [Rx Last Taken Unknown] ipratropium 0.5 mg-albuterol 3 mg (2.5 mg base)/3 mL nebulization soln 3 ml inhalation Q6H PRN SOB 08/31/22 [History Last Taken 02/23/23] nitroglycerin 0.4 mg sublingual tablet 0.4 mg sublingual Q5M PRN Chest Pain #25 tabs 08/31/22 [Rx Last Taken 02/22/23] tiotropium bromide 18 mcg capsule with inhalation device 18 mcg inhalation DAILY SOB 08/31/22 [History Last Taken 02/23/23] allopurinol 300 mg tablet 300 mg PO DAILY gout #90 tabs 11/07/22 [Rx Last Taken 02/23/23 06:00] carvedilol 25 mg tablet 25 mg PO BID heart health #180 tabs 11/07/22 [Rx Last Taken 02/23/23 06:00] ezetimibe 10 mg tablet 10 mg PO DAILY #90 tabs 11/07/22 [Rx Last Taken 02/22/23 18:30] furosemide 40 mg tablet 20 mg (1/2 x 40 mg) PO BID water pill #90 tabs 11/07/22 [Rx Last Taken 02/23/23 06:00] potassium gluconate 595 mg (99 mg) tablet 595 mg PO DAILY #90 tabs 11/07/22 [Rx Last Taken 02/22/23 18:00] Allergy/AdvReac Type Severity Reaction Status Date / Time [id number] Reductase Allergy Chest Verified 03/29/23 16:10 Inhibitor tightness [Hlkdzbg-Kpv-Rpl Reductase Inhibitor] Sulfa (Sulfonamide Allergy Swelling Verified 03/29/23 16:10 Antibiotics) venom-honey bee Allergy Anaphylaxis Verified 03/29/23 16:10 [bee venom (honey bee)] Corticosteroids AdvReac GROUCHY Verified 03/29/23 16:10 (Glucocorticoids) [steroids] Family History Sister Diabetes Mother Hypertension CAD (coronary artery disease) Father No problems noted. Other Asthma Breast cancer Heart disease Hyperlipemia Respiratory disease Surgical History History of cataract surgery History of colonoscopy (2009) History of laminectomy History of left heart catheterization (06/05/22) History of right and left heart catheterization (10/02/12) History of tonsillectomy History of umbilical hernia repair (~02/2023) S/P decompression of ulnar nerve at elbow Social History household members: spouse Smoking Status: Former smoker how long ago did patient quit smokin years ago alcohol intake: current alcohol intake frequency: holidays/special occasions only substance use type: does not use caffeine: No ROS <MAYRA Sanchez - Last Filed: 03/29/23 20:02> ROS ED Constitutional Constitutional ED: Denies chills or fever(s) Cardiovascular Cardiovascular: Reports chest pain; Denies palpitations Respiratory/Chest Respiratory/Chest: Reports dyspnea and dyspnea on exertion; Denies cough or wheezing Gastrointestinal Gastrointestinal: Denies abdominal pain, nausea or vomiting Genitourinary Genitourinary ED: Denies dysuria, hematuria or urinary frequency Musculoskeletal Musculoskeletal: Reports back pain; Denies arthralgias or myalgias Integumentary Denies abscess, Abrasions or rash Neurologic Neurologic: Denies weakness EXAM <MAYRA Sanchez - Last Filed: 03/29/23 20:02> Physical Exam Const Vital Signs: 03/29/23 16:08 03/29/23 18:07 03/29/23 19:19 Temperature 97 F L Temperature Source Temporal Pulse Rate 101 H 98 91 Respiratory Rate 22 H 24 H 22 H Blood Pressure 133/87 H 140/71 H 138/81 H Blood Pressure Mean 102 94 Pulse Ox 90 93 94 Oxygen Delivery Method Nasal Cannula Nasal Cannula Oxygen Flow Rate (L/min) 3 3 Positive well nourished, well developed and no apparent distress General Appearance ED: well developed HEENT Reports normocephalic and head/scalp atraumatic Mouth ED: Yes moist mucous membranes normal Eyes PERRL and EOMs intact bilaterally Neck full ROM and supple Chest Wall inspection of chest normal Resp normal respiratory effort and clear to auscultation bilaterally Resp Narrative: Diffuse crackles in all lung gan bilaterally. Cardio regular rate and regular rhythm GI soft to palpation, non-tender, non-distended and no masses GI Narrative: Dressing over the umbilicus was removed and there is a wick in place to patient's surgical incision without any surrounding erythema. Back/Spine normal ROM and normal to inspection Extremity normal to inspection and full ROM Neuro oriented x3, CN's II-XII intact bilaterally, moves all extremities, no focal motor deficits and no sensory deficits noted Sensorium / Orientation: awake and alert Psych mental status grossly normal and thought process normal Skin no rashes or lesions noted and no wounds <Dr. Elver Elias MD - Last Filed: 03/29/23 23:22> Physical Exam Const Vital Signs: 03/29/23 16:08 03/29/23 18:07 03/29/23 19:19 Temperature 97 F L Temperature Source Temporal Pulse Rate 101 H 98 91 Respiratory Rate 22 H 24 H 22 H Blood Pressure 133/87 H 140/71 H 138/81 H Blood Pressure Mean 102 94 Pulse Ox 90 93 94 Oxygen Delivery Method Nasal Cannula Nasal Cannula Oxygen Flow Rate (L/min) 3 3 [facility] <MAYRA Sanchez - Last Filed: 03/29/23 20:02> [facility] Narrative Medical decision making narrative: Patient presenting today due to shortness of breath that he has had chronically for several years but acutely has worsened over the past few weeks. He reports that his academic vice president is concerned that he could have a PE. He denies any prior history of blood clots. He has been requiring more oxygen at home than normal over the past several days, he normally requires 2 L O2 at baseline but has been using 3 L O2. He reports he cannot even go 2 steps without feeling short of breath. He has a pain to the left side of his chest beneath his left breast that radiates to the back that he reports is worse in the back. He said his academic vice president did a test today that would be sensitive for blood clots and it was positive and told him to come into the ED immediately. I am assuming this was a D-dimer. Labs to be obtained to rule out ACS, leukocytosis, anemia, electrolyte abnormality, assess kidney function. CTA will be obtained to rule out PE. He is slightly tachycardic here and is 90% O2 saturation on 3 L. CTA is negative for any acute findings, labs overall are unremarkable. On reexamination patient reports that he would really like to go home. He does have a home and is able to have close follow-up with his academic vice president. I do not want to put him on any steroids because he is currently on antibiotics due to concerns for his surgical wound infection. Patient reports he does have rescue inhalers at home if they are needed. Patient be discharged home in stable condition and is comfortable with plan. He is to follow-up with his PCP/academic vice president and has been given return instructions. Lab Data Attestation: I reviewed the patient's lab results. Labs: Laboratory Results - last 24 hr 03/29/23 16:37 WBC 6.8 RBC 4.21 L Hgb 12.8 L Hct 39.4 L MCV 93.6 MCH 30.4 MCHC 32.5 RDW Std Deviation 51.3 H RDW Coeff of Pito 14.8 H Plt Count 175 MPV 9.9 Immature Gran % (Auto) 0.600 Neut % (Auto) 54.6 Lymph % (Auto) 31.1 [place] % (Auto) 12.1 H Eos % (Auto) 1.3 Baso % (Auto) 0.3 Absolute Neuts (auto) 3.7 Absolute Lymphs (auto) 2.11 Nucleated RBC % 0 Sodium 138 Potassium 3.4 L Chloride 103 Carbon Dioxide 29.0 Anion Gap 6 BUN 10 Creatinine 1.00 Est GFR (MDRD) Af Amer 92 Est GFR (MDRD) Non-Af 76 BUN/Creatinine Ratio 10.0 Glucose 114 H Calcium 9.2 Troponin I High Sens 14 Radiography Diagnostic Testing: Clinical Impression(s) from Imaging Studies Chest CTA 03/29/23 16:26 IMPRESSION: There are no acute findings. Electronically Signed: Andrew Byrnes MD at 17:50 EDT Reading Location ID and State: [facility] / [place] , Service support , EKG Initial EKG: Comments: 87 bpm, normal sinus rhythm, no ST elevation, reviewed and interpreted by attending ED visit <Dr. Elver Elias MD - Last Filed: 03/29/23 23:22> [facility] Lab Data Labs: Laboratory Results - last 24 hr 03/29/23 16:37 WBC 6.8 RBC 4.21 L Hgb 12.8 L Hct 39.4 L MCV 93.6 MCH 30.4 MCHC 32.5 RDW Std Deviation 51.3 H RDW Coeff of Pito 14.8 H Plt Count 175 MPV 9.9 Immature Gran % (Auto) 0.600 Neut % (Auto) 54.6 Lymph % (Auto) 31.1 [place] % (Auto) 12.1 H Eos % (Auto) 1.3 Baso % (Auto) 0.3 Absolute Neuts (auto) 3.7 Absolute Lymphs (auto) 2.11 Nucleated RBC % 0 Sodium 138 Potassium 3.4 L Chloride 103 Carbon Dioxide 29.0 Anion Gap 6 BUN 10 Creatinine 1.00 Est GFR (MDRD) Af Amer 92 Est GFR (MDRD) Non-Af 76 BUN/Creatinine Ratio 10.0 Glucose 114 H Calcium 9.2 Troponin I High Sens 14 Radiography Diagnostic Testing: Clinical Impression(s) from Imaging Studies Chest CTA 03/29/23 16:26 IMPRESSION: There are no acute findings. Electronically Signed: Andrew Byrnes MD at 17:50 EDT , Treatment and Re-Evaluation :: I have personally performed a face to face assessment of the patient and have reviewed the BILL Note. I performed a substantive portion of the visit including all aspects of the following. My myers findings include: History: Patient was sent in here to evaluate for blood clot. It sounds like he had an outpatient D-dimer that was positive. Patient also had umbilical hernia done about 1 month ago. He has been dealing with infection in the area but it is improving. He is eating and drinking well. He has been having shortness of breath and some nonproductive cough. No hemoptysis. He tells me that his breathing exacerbation actually started a little before the hernia surgery. He was wheezing a lot then but he is not wheezing so much now. But his dyspnea continues. The concern is did he have a pulmonary embolus somewhere in this process that has continued some of his symptoms. Only blood thinner is baby aspirin. Exam: Patient awake alert no acute distress. He is sitting comfortably in bed. He is on long-term oxygen for his COPD. His lungs are not showing any notable wheezing. There is a few dry crackles. No coughing while I am in the room. Heart is regular. Rate of about 90. Abdomen is soft. Dressing on the umbilicus but no notable significant erythema. Medical Decision Making: Patient will have blood work done along with CTA of the chest. Discharge Plan Triage Chief Complaint: Shortness of Breath ED Midlevel Provider: Mary Lemon ED Provider: Elver Elias Dx/Rx/DC Orders Clinical Impression: Dyspnea, COPD (chronic obstructive pulmonary disease) Instructions: ED Dyspnea Prescriptions: No Action ipratropium-albuterol 0.5 mg-3 mg(2.5 mg base)/3 mL solution for nebulization 3 ml INHALATION Q6H PRN (Reason: SOB) nitroglycerin 0.4 mg tablet, sublingual 0.4 mg SUBLINGUAL Q5M PRN (Reason: Chest Pain) Qty: 25 3RF budesonide-formoterol 1 INHALER inhaler 2 puff INHALATION BID Patient Comments: breathing tiotropium bromide 18 mcg capsule, w/inhalation device 18 mcg inhalation DAILY Patient Comments: SOB aspirin [Adult Aspirin Regimen] 81 mg tablet,delayed release (DR/EC) 81 mg PO QDAY Qty: 90 3RF (DME) Handicap placard See Rx Instructions .Route .MEDSUPPLY Qty: 1 0RF Rx Instructions: 5 year rx 07/30/22-07/30/23 allopurinol 300 mg tablet 300 mg PO DAILY Qty: 90 3RF carvedilol 25 mg tablet 25 mg PO BID Qty: 180 3RF ezetimibe 10 mg tablet 10 mg PO DAILY Qty: 90 3RF furosemide 40 mg tablet 20 mg PO BID Qty: 90 3RF potassium gluconate 595 mg (99 mg) tablet 595 mg PO DAILY Qty: 90 3RF Primary Care Provider: Mary Arreola Referrals: Mary Arreola MD [Primary Care Provider] - 3-5 Days Activity Restrictions/Additional Instructions: Please follow-up with your PCP and return for any worsening of your symptoms. Disposition Disposition: Home, Self Care Discharge Date/Time: 03/29/23 19:20
[2023-03-29 16:48] LABS: Absolute Lymphocyte Count 2.11 X10^3/uL (0.83-4.51); Absolute Neutrophil Count 3.7 X10^3/uL (2.0-7.7); Basophil# 0.02 X10^3/uL; Basophil% 0.3 % (0-1); Eosinophil# 0.09 X10^3/uL; Eosinophils% 1.3 % (0-5); Hematocrit 39.4 % (40-54); Hemoglobin 12.8 g/dL (13.0-16.5); Lymphocyte # 2.11 X10^3/ul (0.83-4.51); Lymphocyte % 31.1 % (19-41); Mean Corp Hgb Conc 32.5 g/dL (32-36); Mean Corpuscular Hgb 30.4 pg (27.0-32.0); Mean Corpuscular Volume 93.6 fL (80-94); Mean Platelet Vol. 9.9 fl (6.2-12.0); Monocyte# 0.82 X10^3/uL; Monocyte% 12.1 % (0-10); NRBC Flagged by Analyzer 0 % (0-5); Neutrophil % 54.6 % (47-70); Platelet Count 175 K/mm3 (150-450); RBC Distribution Width CV 14.8 % (11.6-14.6); RBC Distribution Width SD 51.3 fl (35.1-43.9); Red Blood Count 4.21 M/mm3 (4.6-6.2); White Blood Count 6.8 K/mm3 (4.4-11.0)
[2023-03-29 17:08] LABS: Anion Gap 6 (5-15); BUN 10 mg/dL (7-18); Calcium,Total 9.2 mg/dL (8.5-10.1); Chloride 103 mmol/L (98-107); EST Glomerular Filtration Rate 76 mL/min (>60); Est Glom Filt Rate - Afr Amer 92 mL/min (>60); Glucose 114 mg/dL (74-106); Potassium 3.4 mmol/L (3.5-5.1); Sodium Level 138 mmol/L (136-145); Troponin-I HS 14 pg/mL (3.0-78.0)
[2023-03-29 18:07] VITALS: BP 140/71; PULSE 98; RESP 24; O2SAT 93
[2023-03-29 19:19] VITALS: BP 138/81; PULSE 91; RESP 22; O2SAT 94
== END 2023-03-29 19:20 | disposition home or self-care (01) ==
PROVIDERS: Physician Assistant; Emergency Provider Emergency Medicine; PCP Internal Medicine; Visit Provider Emergency Medicine
DX: J44.9 Chronic obstructive pulmonary disease, unspecified (principal); I42.8 Other cardiomyopathies; J96.11 Chronic respiratory failure with hypoxia; R07.9 Chest pain, unspecified; I25.10 Atherosclerotic heart disease of native coronary artery without angina pectoris; M54.9 Dorsalgia, unspecified; E78.5 Hyperlipidemia, unspecified; I10 Essential (primary) hypertension; K21.9 Gastro-esophageal reflux disease without esophagitis; Z99.81 Dependence on supplemental oxygen; Z87.891 Personal history of nicotine dependence
CPT/HCPCS: 71275; 80048; 84484; 85025; 93005; 99283; Q9967; A4216

== ENCOUNTER → 2023-06-12 | Outpatient (CLI) | payer MEDICARE, SELFPAY ==
--- NOTE | 2023-06-12 12:10 | RAD_ITS ---
STUDY: X-RAY CHEST REASON FOR EXAM: Male, 82 years old. Dyspnea. TECHNIQUE: Frontal and lateral views of the chest on 3 images. COMPARISON: February 23, 2023 FINDINGS: Left PICC removed since the prior study. Stable mild cardiomegaly, aortic tortuosity with calcification, hyperinflation, mild diffuse interstitial pattern, granulomatous calcifications and scarring in the left base. Diffuse thoracic osteopenia with mild anterior wedge compression deformity of a midthoracic vertebral body, age undetermined. Diffuse moderate thoracic spondylosis. No abnormality of the visualized soft tissue structures of the upper abdomen. RAD/Chest PA and Lateral IMPRESSION: Removal of left PICC with otherwise stable chest. No active or acute cardiopulmonary disease. Electronically Signed: Jarred Vazquez MD at 14:37 EDT ,
[2023-06-12 12:20] LABS: Absolute Lymphocyte Count 1.15 X10^3/uL (0.83-4.51); Absolute Neutrophil Count 4.5 X10^3/uL (2.0-7.7); Basophil# 0.04 X10^3/uL; Basophil% 0.6 % (0-1); Eosinophil# 0.11 X10^3/uL; Eosinophils% 1.7 % (0-5); Hemoglobin 13.4 g/dL (13.0-16.5); Lymphocyte # 1.15 X10^3/ul (0.83-4.51); Lymphocyte % 17.5 % (19-41); Mean Corp Hgb Conc 31.9 g/dL (32-36); Mean Corpuscular Hgb 30.7 pg (27.0-32.0); Mean Corpuscular Volume 96.1 fL (80-94); Mean Platelet Vol. 10.1 fl (6.2-12.0); Monocyte# 0.74 X10^3/uL; Monocyte% 11.3 % (0-10); NRBC Flagged by Analyzer 0 % (0-5); Neutrophil # 4.49 X10^3/uL (2.7-7.7); Neutrophil % 68.4 % (47-70); Platelet Count 127 K/mm3 (150-450); RBC Distribution Width CV 15.4 % (11.6-14.6); Red Blood Count 4.37 M/mm3 (4.6-6.2); White Blood Count 6.6 K/mm3 (4.4-11.0)
[2023-06-12 12:38] LABS: BNP,B-Type NATRIURETIC PEPTIDE 13.3 pg/mL (0-100)
[2023-06-12 12:40] LABS: AST(SGOT) 14 U/L (15-37); Alanine Aminotransfer ALT/SGPT 17 U/L (16-61); Albumin, Serum 3.4 g/dL (3.2-5.0); Alkaline Phosphatase 130 U/L (45-117); Anion Gap 1 (5-15); BUN 12 mg/dL (7-18); BUN/Creat Ratio 15.4 RATIO (10-20); Bilirubin, Direct 0.23 mg/dL (0.00-0.30); Chloride 106 mmol/L (98-107); Cholesterol 156 mg/dL (200); Creatinine, Serum 0.78 mg/dL (0.70-1.30); EST Glomerular Filtration Rate 101 mL/min (>60); Est Glom Filt Rate - Afr Amer 123 mL/min (>60); Globulin 4.3 g/dL (2.2-4.2); Glucose 117 mg/dL (74-106); High Density Lipoprotein 38 mg/dL; Potassium 4.1 mmol/L (3.5-5.1); Protein, Total 7.7 g/dL (6.4-8.2); Sodium Level 139 mmol/L (136-145); Triglycerides 107 mg/dL; Very Low Density Lipoprotein 21 mg/dL (5-40)
== END | disposition home or self-care (01) ==
LOC: LAB 11:55
PROVIDERS: PCP Internal Medicine; Referring Provider Nurse Practitioner Gerontology; Visit Provider Nurse Practitioner Gerontology
DX: R06.00 Dyspnea, unspecified (principal); E78.5 Hyperlipidemia, unspecified
CPT/HCPCS: 36415; 71046; 80048; 80061; 80076; 83880; 85025

== ENCOUNTER 2023-08-13 13:15 | Inpatient (IN) | payer MEDICARE, SELFPAY ==
[2023-08-13] VITALS (9 sets, daily range): BP systolic 115–126; BP diastolic 61–70; PULSE 72–97; RESP 14–18; TEMP 35.7–37.2; O2SAT 91–96; BMI 37.5; BMI 32.5
--- NOTE | 2023-08-13 13:48 | RAD_ITS ---
STUDY: X-RAY - PELVIS REASON FOR EXAM: Male, 82 years old. Fall TECHNIQUE: One view of the pelvis was obtained. COMPARISON: None. FINDINGS: There is a non-specific bowel gas pattern. There is evidence of prior right hernia repair. There is narrowing with cortical sclerosis and osteophyte formation of the sacroiliac joint consistent with degenerative osteoarthritic changes. Normal visualized bilateral superior and inferior pubic rami. Normal pubic symphysis. Normal ischial tuberosities. Normal visualized right femoral head. Normal right acetabulum. There is mild articular joint space narrowing of the right hip. Normal visualized left femoral head. Normal left acetabulum. There is mild articular joint space narrowing of the left hip. RAD/Pelvis 1 or 2 Views IMPRESSION: Mild joint space narrowing of both hip joints. Electronically Signed: Wallace Friedman MD at 15:01 EST ,
--- NOTE | 2023-08-13 13:53 | EX.ED.DYSGE1 ---
HPI <VICKY Farrell - Last Filed: 08/13/23 19:49> History of Present Illness Chief Complaint: Fall Narrative Narrative: Patient is an 82-year-old male with history of cardiomegaly CAD history of [place] who presents to the emergency department after mechanical fall landing on his left hip. Patient states that he was trying to catch his cat this morning when he stepped to his left side and fell over losing his balance. Patient landed on his left hip and was unable to get up. He had to come by ambulance. Patient states he is having difficulty moving the left leg secondary to severe pain. He denies any head or neck or back pain. He states the pain is strictly in his left hip. 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 BPH (benign prostatic hyperplasia) BPH w urinary obs/LUTS Chronic back pain greater than 3 months duration Chronic respiratory failure with hypoxia COPD (chronic obstructive pulmonary disease) Diverticulosis Essential hypertension Gastroesophageal reflux disease Gout HLD (hyperlipidemia) Non-ischemic cardiomyopathy Premature ventricular contraction Sleep apnea Spinal stenosis Home Medications budesonide-formoterol HFA 160 mcg-4.5 mcg/actuation aerosol inhaler 2 puff inhalation BID SHORTNESS OF BREATH 12/20/14 [History Last Taken 02/23/23 06:00] Handicap placard #1 ea 07/30/22 [Rx Last Taken Unknown] ipratropium 0.5 mg-albuterol 3 mg (2.5 mg base)/3 mL nebulization soln 3 ml inhalation Q6H PRN SHORTNESSOF BREATH 08/31/22 [History Last Taken 02/23/23] tiotropium bromide 18 mcg capsule with inhalation device 18 mcg inhalation DAILY SHORTNES OF BREATH 08/31/22 [History Last Taken 02/23/23] allopurinol 300 mg tablet 300 mg PO DAILY GOUT #90 tabs 11/07/22 [Rx Last Taken 02/23/23 06:00] carvedilol 25 mg tablet 25 mg PO BID HEART HEALTH #180 tabs 11/07/22 [Rx Last Taken 02/23/23 06:00] ezetimibe 10 mg tablet 10 mg PO DAILY CHOLESTEROL #90 tabs 11/07/22 [Rx Last Taken 02/22/23 18:30] potassium gluconate 595 mg (99 mg) tablet 595 mg PO DAILY SUPPLEMENT #90 tabs 11/07/22 [Rx Last Taken 02/22/23 18:00] ascorbic acid (vitamin C) 1,000 mg capsule 1 g PO BID SUPPLEMENT 06/12/23 [History Last Taken Unknown] nitroglycerin 0.4 mg sublingual tablet 0.4 mg sublingual Q5M PRN CHEST PAIN #25 tabs 06/12/23 [Rx Last Taken Unknown] aspirin 81 mg tablet,delayed release (Adult Aspirin Regimen) 81 mg PO DAILY HEART HEALTH 08/13/23 [History Last Taken Unknown] furosemide 20 mg tablet 5 mg PO QODAY FLUID 08/13/23 [History Last Taken Unknown] Allergy/AdvReac Type Severity Reaction Status Date / Time [id number] Reductase Allergy Chest Verified 06/12/23 11:37 Inhibitor tightness [Skwephz-Whe-Stu Reductase Inhibitor] Sulfa (Sulfonamide Allergy Swelling Verified 06/12/23 11:37 Antibiotics) venom-honey bee Allergy Anaphylaxis Verified 06/12/23 11:37 [bee venom (honey bee)] Corticosteroids AdvReac GROUCHY Verified 06/12/23 11:37 (Glucocorticoids) [steroids] Family History Sister Diabetes Mother Hypertension CAD (coronary artery disease) Father No problems noted. Other Asthma Breast cancer Heart disease Hyperlipemia Respiratory disease Surgical History History of cataract surgery History of colonoscopy (2009) History of laminectomy History of left heart catheterization (06/05/22) History of right and left heart catheterization (10/02/12) History of tonsillectomy History of umbilical hernia repair (~02/2023) S/P decompression of ulnar nerve at elbow Social History household members: spouse Smoking Status: Former smoker how long ago did patient quit smokin years ago alcohol intake: current alcohol intake frequency: holidays/special occasions only substance use type: does not use caffeine: No ROS <VICKY Farrell - Last Filed: 08/13/23 19:49> ROS ED ROS Narrative Constitutional: Negative for fever, chills, weight loss, weakness Eyes: Negative for vision loss, vision change, double vision ENT: Negative for any sore throat, ear pain, congestion Cardiovascular: Negative for any chest pain, tightness, palpitations Respiratory: Negative for any cough, sputum production, hemoptysis, dyspnea, dyspnea on exertion, orthopnea Gastrointestinal: Negative for any abdominal pain, nausea, vomiting, diarrhea, constipation, blood in stool, blood in vomit : Negative for any urinary frequency, dysuria, retention, blood in urine Muscle skeletal: Negative for any myalgias, arthralgias, neck pain, back pain. Positive for pain to the right hip Neurological: Negative for any headache, syncope, paresthesias, dizziness Skin: Negative for any rashes, lumps, itching, abrasions, lacerations Psychiatric: Negative for any depression, anxiety, stress, suicidal ideation, homicidal ideation Hematologic: Negative for any easy bruising, excessive bruising, easy bleeding Allergies: Negative for any eczema, hives, rash EXAM <VICKY Farrell - Last Filed: 08/13/23 19:49> Physical Exam Narrative Exam Narrative: Vital signs reviewed. HEET: Head normocephalic atraumatic, TMs clear bilaterally. Posterior pharynx is clear, moist mucous membranes. Nares clear bilaterally. Pupils are equal round reactive to light. Negative for any hemotympanum, negative for any septal hematoma. Neck: Supple with no lymphadenopathy or tenderness. No signs of meningismus. Cardiac: Regular rate and rhythm no murmurs gallops or rubs, equal peripheral pulses bilaterally. Respiratory: Lungs clear to auscultation bilaterally. No chest tenderness. Abdomen: Soft, nontender, nondistended. No abdominal bruit or pulsatile masses. No hepatosplenomegaly Extremities: Patient has significant pain to the left hip. With any flexion or extension, the patient has severe pain in the left hip. Patient has point tenderness to the joint line. +2 pedal pulse. Neuro: Cranial nerves II through XII intact, no focal neurological deficits. Skin: Clean dry and intact with no rash, purpura, petechiae, vesicles or pustules. Backs/flank: No CVA tenderness, no midline spinal tenderness, no deformity. Psych: Normal mood and affect. No SI, HI or acute psychosis. Const Vital Signs: 08/13/23 13:17 08/13/23 13:28 08/13/23 13:29 Temperature 96.2 F L Temperature Source Temporal Pulse Rate 83 80 Respiratory Rate 16 Respiratory Effort Normal Respiratory Depth Normal Respiratory Pattern Normal Blood Pressure 122/70 H 122/70 H Blood Pressure Mean 87 87 Pulse Ox 91 95 95 Oxygen Delivery Method Room Air Nasal Cannula Nasal Cannula Oxygen Flow Rate (L/min) 2 2 08/13/23 15:35 Temperature Temperature Source Pulse Rate 83 Respiratory Rate 18 Respiratory Effort Respiratory Depth Respiratory Pattern Blood Pressure 115/61 Blood Pressure Mean 79 Pulse Ox 93 Oxygen Delivery Method Room Air Oxygen Flow Rate (L/min) <Dr. Jeffy Lange MD - Last Filed: 08/13/23 21:05> Physical Exam Const Vital Signs: 08/13/23 13:17 08/13/23 13:28 08/13/23 13:29 Temperature 96.2 F L Temperature Source Temporal Pulse Rate 83 80 Respiratory Rate 16 Respiratory Effort Normal Respiratory Depth Normal Respiratory Pattern Normal Blood Pressure 122/70 H 122/70 H Blood Pressure Mean 87 87 Pulse Ox 91 95 95 Oxygen Delivery Method Room Air Nasal Cannula Nasal Cannula Oxygen Flow Rate (L/min) 2 2 08/13/23 15:35 Temperature Temperature Source Pulse Rate 83 Respiratory Rate 18 Respiratory Effort Respiratory Depth Respiratory Pattern Blood Pressure 115/61 Blood Pressure Mean 79 Pulse Ox 93 Oxygen Delivery Method Room Air Oxygen Flow Rate (L/min) MDM <VICKY Farrell - Last Filed: 08/13/23 19:49> [facility] Lab Data Labs: Laboratory Results - last 24 hr 08/13/23 08/13/23 13:58 19:45 WBC 6.3 RBC 4.32 L Hgb 13.1 Hct 41.1 MCV 95.1 H MCH 30.3 MCHC 31.9 L RDW Std Deviation 52.8 H RDW Coeff of Pito 15.1 H Plt Count 123 L MPV 9.9 Immature Gran % (Auto) 0.500 Neut % (Auto) 65.6 Lymph % (Auto) 23.2 [place] % (Auto) 8.7 Eos % (Auto) 1.4 Baso % (Auto) 0.6 Absolute Neuts (auto) 4.1 Absolute Lymphs (auto) 1.46 Nucleated RBC % 0 PT 13.6 INR 1.0 Sodium 143 Potassium 3.9 Chloride 111 H Carbon Dioxide 27.0 Anion Gap 5 BUN 16 Creatinine 0.84 Estim Creat Clear Calc 66.73 Est GFR (MDRD) Af Amer 113 Est GFR (MDRD) Non-Af 94 BUN/Creatinine Ratio 19.1 Glucose 113 H Calcium 8.6 Blood Type A POSITIVE Antibody Screen NEGATIVE Radiography Diagnostic Testing: Clinical Impression(s) from Imaging Studies Pelvis X-Ray 08/13/23 13:48 IMPRESSION: Mild joint space narrowing of both hip joints. Electronically Signed: Wallace Friedman MD at 15:01 EST , Femur X-Ray 08/13/23 14:38 IMPRESSION: Normal x-ray examination of the femur. Electronically Signed: Wallace Friedman MD at 15:00 EST , Lower Extremity MRI 08/13/23 15:20 IMPRESSION: * Acute minimally impacted but otherwise nondisplaced subcapital fracture of the left femur. * Mild left obturator externus muscle strain. * Mild bilateral common hamstring tendinosis. * Diverticulosis coli. Electronically Signed: Mario Vera MD at 18:56 EST , Treatment and Re-Evaluation :: Patient appears generally well, patient appears nontoxic, vital signs are stable. Presenting to the emergency department with complaints of left hip pain after mechanical fall. Differential diagnosis includes femoral neck fracture, pelvic fracture, left hip contusion. Physical examination is concerning for left hip fracture. Basic laboratory values were completed. He will receive IV pain medicine as well as nausea medicine. X-ray of the left hip will be completed. All radiologic examinations were read, reviewed by the emergency department attending. From these reads, a plan of care will be put in place. Patient CBC was unremarkable, chemistries were unremarkable. Patient's femur showed normal x-ray examination of the femur. Patient's x-ray of the hip showed mild joint space in the L hip, no acute fracture. I did reevaluate the patient. This was after the pain medicine. Patient still cannot lift his left leg off the ground, with any flexion extension causes severe pain in his hip that raise to his groin. At this time, I did speak with radiology, we will perform a MRI of the left hip. MRI of the left hip shows acute minimally impacted but otherwise nondisplaced subcapital fracture of the left femur. Mild left obturator externus muscle strain. Mild bilateral common hamstring tendinosis. At this time, I do believe the patient needs to be admitted to the hospital. I spoke with Dr. muñiz from orthopedics, he will likely fix this left hip later tomorrow or early morning. I will now speak to the hospitalist to admit the patient <Dr. Jeffy Lange MD - Last Filed: 08/13/23 21:05> [facility] Narrative Medical decision making narrative: I have personally performed a face to face assessment of the patient and have reviewed the BILL Note. I performed a substantive portion of the visit including all aspects of the following. My myers findings include: History is remarkable for fall chasing cat. Cat had a veterinary appointment. Patient was unable to ambulate after fall. He localizes the pain to the left inguinal area. He denies head trauma. Denies headache. He denies neck pain. He denies paresthesia, anesthesia medics. The only anticoagulant patient is on is an antithrombotic and is a baby aspirin. He is not on an anticoagulant. He denies cardiac or respiratory symptoms. He is at baseline. He is on chronic oxygen due to COPD. He has not smoked in years. He denies black or maroon-colored stool. He denies urologic symptoms. Exam is vital signs noted. Head is atraumatic normocephalic. Neck is supple. There is no pain the patient posterior cervical spine. Lungs reveal mild diminished breath sounds bilaterally. There is mild and inspiratory rales at the bases. There is no expiratory wheezing. Heart is regular. Rate is normal. Abdomen is soft nontender. There is no pain ovation the pelvis. There is pain palpation over the greater trochanteric region. Internally and externally rotating the left leg causes some pain in the inguinal area. Patient is unable to elevate his leg off the bed. He does have palpable DP pulse and is 2+ and symmetric. Medical Decision Making patient's history and physical is consistent with fracture. X-ray will be obtained to rule out femoral neck fracture versus intertrochanteric versus infra trochanteric fracture. Will obtain appropriate blood work for restratification for surgical clearance. Patient was medicated with morphine for his pain. Other additions or changes: Femur and pelvis film was obtained. Patient has a radiolucency base of the femoral neck. Concerned this represents a fracture. X-rays were reviewed with radiologist. He believes this is a nutrient vessel. Clinically patient has a fractured hip since he is unable to elevate his leg when he attempts to elevate his leg off the bed he complains of pain in the left inguinal area. Logrolling causes pain in the left inguinal area he is unable to bear weight. Will obtain MRI since there is no contraindication. History & Record Review Additional record(s) reviewed:: Prior outpatient record, Prior ED visit and Prior labs Lab Data Attestation: I reviewed the patient's lab results. Labs: Laboratory Results - last 24 hr 08/13/23 08/13/23 13:58 19:45 WBC 6.3 RBC 4.32 L Hgb 13.1 Hct 41.1 MCV 95.1 H MCH 30.3 MCHC 31.9 L RDW Std Deviation 52.8 H RDW Coeff of Pito 15.1 H Plt Count 123 L MPV 9.9 Immature Gran % (Auto) 0.500 Neut % (Auto) 65.6 Lymph % (Auto) 23.2 [place] % (Auto) 8.7 Eos % (Auto) 1.4 Baso % (Auto) 0.6 Absolute Neuts (auto) 4.1 Absolute Lymphs (auto) 1.46 Nucleated RBC % 0 PT 13.6 INR 1.0 Sodium 143 Potassium 3.9 Chloride 111 H Carbon Dioxide 27.0 Anion Gap 5 BUN 16 Creatinine 0.84 Estim Creat Clear Calc 66.73 Est GFR (MDRD) Af Amer 113 Est GFR (MDRD) Non-Af 94 BUN/Creatinine Ratio 19.1 Glucose 113 H Calcium 8.6 Blood Type A POSITIVE Antibody Screen NEGATIVE Radiography Diagnostic Testing: Clinical Impression(s) from Imaging Studies Pelvis X-Ray 08/13/23 13:48 IMPRESSION: Mild joint space narrowing of both hip joints. Electronically Signed: Wallace Friedman MD at 15:01 EST , Femur X-Ray 08/13/23 14:38 IMPRESSION: Normal x-ray examination of the femur. Electronically Signed: Wallace Friedman MD at 15:00 EST , Lower Extremity MRI 08/13/23 15:20 IMPRESSION: * Acute minimally impacted but otherwise nondisplaced subcapital fracture of the left femur. * Mild left obturator externus muscle strain. * Mild bilateral common hamstring tendinosis. * Diverticulosis coli. Electronically Signed: Mario Vera MD at 18:56 EST , Discharge Plan Dx/Rx/DC Orders Clinical Impression: Fall, Closed fracture of left hip Disposition Disposition: Acute Care [facility]
[2023-08-13] MEDS: Ondansetron 4 MG/2 ML Vial IV (13:58)
[2023-08-13] MEDS: Morphine 4 MG/ML Syringe IV ×2 (13:58→16:47)
[2023-08-13] MEDS: 0.9% Normal Saline (1000mL) 1,000 ML 125 ML IV ×2 (13:58→22:40)
[2023-08-13 14:07] LABS: Absolute Lymphocyte Count 1.46 X10^3/uL (0.83-4.51); Absolute Neutrophil Count 4.1 X10^3/uL (2.0-7.7); Basophil# 0.04 X10^3/uL; Basophil% 0.6 % (0-1); Eosinophil# 0.09 X10^3/uL; Eosinophils% 1.4 % (0-5); Hematocrit 41.1 % (40-54); Hemoglobin 13.1 g/dL (13.0-16.5); Lymphocyte # 1.46 X10^3/ul (0.83-4.51); Lymphocyte % 23.2 % (19-41); Mean Corp Hgb Conc 31.9 g/dL (32-36); Mean Corpuscular Hgb 30.3 pg (27.0-32.0); Mean Corpuscular Volume 95.1 fL (80-94); Mean Platelet Vol. 9.9 fl (6.2-12.0); Monocyte# 0.55 X10^3/uL; Monocyte% 8.7 % (0-10); NRBC Flagged by Analyzer 0 % (0-5); Neutrophil # 4.13 X10^3/uL (2.7-7.7); Neutrophil % 65.6 % (47-70); Platelet Count 123 K/mm3 (150-450); RBC Distribution Width CV 15.1 % (11.6-14.6); RBC Distribution Width SD 52.8 fl (35.1-43.9); Red Blood Count 4.32 M/mm3 (4.6-6.2); White Blood Count 6.3 K/mm3 (4.4-11.0)
[2023-08-13 14:23] LABS: Anion Gap 5 (5-15); BUN 16 mg/dL (7-18); BUN/Creat Ratio 19.1 RATIO (10-20); Calcium,Total 8.6 mg/dL (8.5-10.1); Chloride 111 mmol/L (98-107); Creatinine, Serum 0.84 mg/dL (0.70-1.30); EST Glomerular Filtration Rate 94 mL/min (>60); Est Glom Filt Rate - Afr Amer 113 mL/min (>60); Estimated Creatinine Clearance 66.73 ml/min; Glucose 113 mg/dL (74-106); Potassium 3.9 mmol/L (3.5-5.1); Sodium Level 143 mmol/L (136-145)
--- NOTE | 2023-08-13 14:38 | RAD_ITS ---
STUDY: X-RAY - LEFT FEMUR REASON FOR STUDY: Male, 82 years old. Left lower extremity pain following a fall. TECHNIQUE: 4 view(s) of the femur. COMPARISON: None. FINDINGS: Normal visualized femur. Normal visualized soft tissue structure. There are atherosclerotic vascular calcifications. RAD/Femur Min 2 Views IMPRESSION: Normal x-ray examination of the femur. Electronically Signed: Wallace Friedman MD at 15:00 EST ,
[2023-08-13 14:56] LABS: Prothrombin Time (Protime)PT. 13.6 SECONDS (11.7-14.9)
--- NOTE | 2023-08-13 15:20 | MRI_ITS ---
INDICATION: Left hip pain EXAMINATION: MRI - MR Hip W/O Contrast TECHNIQUE: Multiplanar and multisequence MR images of the LEFT hip. IV Contrast Dosage and Agent: None. COMPARISON: CR pelvis dated 08/13/2023 FINDINGS: BONE: There is an subcapital fracture of the left femur with a fracture extending from the lateral femoral head neck junction medially, associated with mild impaction at the superior femoral head-neck junction. Accompanying marrow edema is present with extends along the course of the fracture and inferiorly into the intratrochanteric region, without fracture evident in the intratrochanteric region. No additional marrow signal abnormalities within the pelvis. JOINT: Mild bilateral hip joint space narrowing and small acetabular marginal osteophytes. No joint effusion. MUSCLES: There is edema signal within the left obturator externus likely reflecting a mild muscle strain. Regional musculature is otherwise normal in bulk and signal intensity. ACETABULAR LABRUM: No evidence of a tear on this non-arthrogram exam. TENDONS: The gluteal tendons and iliopsoas tendon are intact. Mildly increased T2 signal at the origins of the bilateral common hamstring tendons reflective of mild tendinosis. BURSA: No trochanteric bursitis. OTHER SOFT TISSUES: Unremarkable. PELVIS: Diverticulosis coli. No evidence of diverticulitis. No pelvic free fluid or lymphadenopathy. Prostate and seminal vesicles unremarkable. Normal bladder. MRI/Lower Ext Joint Only (Routine) IMPRESSION: * Acute minimally impacted but otherwise nondisplaced subcapital fracture of the left femur. * Mild left obturator externus muscle strain. * Mild bilateral common hamstring tendinosis. * Diverticulosis coli. Electronically Signed: Mario Vera MD at 18:56 EST ,
--- NOTE | 2023-08-13 16:47 | CM.ED ---
Social Work SW introduced self and role to patient. Nursing reports patient could use some resources. SW reviewed patient needs and situation. Pt resides at home with his who he reports has dementia. Pt reports some days are better than others with his . Pt reports she soils herself and can be mean at times. Pt reports caring for her and all household needs independently. Pt reports meals on wheels as the only assistance they receive currently but that the meals are difficult for them to eat at times due to their teeth. Pt reports he has been more weak and falling more recently and he fears he will not be able to maintain care. SW explored options with pt and whether he has considered AL. Pt reports he cannot see taking the dogs away from his because she sleeps with them and adores their two dogs. Pt given resources for [facility] on aging, home meal delivery companies, and private duty HHC. SW also discussed HHC through PCP if needed. Pt is unsure whether it would be helpful to have HHC. Pt reports his ebony is home with his right now to assist in her care. Ebony lives in [facility]. Pt does report having a HCPOA and Living Will he just completed but does not have it to put on file currently. Pt reports his Gemma and ebony Barrett as his HCPOA's. Pt reports Gemma likely does not have the capacity to make decisions for him at this time. Pt denies any other SW needs at this time. SW will follow if additional needs arise. Bea Bazan SEAT BUILDER, TAILOR'S AIDE
[2023-08-13] MEDS: Morphine 4 MG/ML Syringe IM (18:22)
--- NOTE | 2023-08-13 19:47 | HP.PCM.HOS_ITS ---
[facility] - General General Date of Admission: 08/13/23 Date of Service: 08/13/23 Chief Complaint: Fall with left hip fracture. HPI Narrative MARIA INES MENENDEZ, is a 82 M with a past medical history of essential hypertension, hyperlipidemia; with intolerance to statins, obesity; with BMI of 37.5 this admission plus obstructive sleep apnea, history of tobacco abuse (quit smoking approximately 20 years ago); with subsequent COPD, chronic hypoxic respiratory failure on 2 L nasal cannula continuously, history of coronary artery disease; status post UT with most recent left heart catheterization in May 2022 followed by , history of nonischemic cardiomyopathy with cardiomegaly, history of abdominal aortic aneurysm, history of aneurysm of the common iliac artery, history of colonic diverticulosis, BPH, gout, GERD, spinal stenosis and osteoarthritis; with chronic back pain who presents to [facility] ER complaining of persistent left hip pain and inability to ambulate after fall. Mr. Menendez reports his symptoms began earlier on the morning of 08/13/2023 when he bent over in an effort to catch his cat when he stepped to the left side and subsequently lost his balance falling onto his left hip. He was then unable to get up and EMS had to be activated because he had persistent difficulty moving without severe pain with the patient on floor for total of approximately 45 minutes. He denies associated head trauma, loss of consciousness or other significant injury with his fall. He also denies recent illness, fever, chills, nausea, vomiting, diarrhea or constipation but he does admit to increasing falls due to a vertigo-like sensation with sudden head movements or when moving from a dark to light room with a recent fall about a week ago when he lost his balance when standing up and fell into a closed cabin et door without significant injury so he did not seek medical attention at that time. He admits he occasionally has had to take his NTG due to chest discomfort and he admits to SOB with increased activity - but he denies having to take his nitroglycerin recently. In the ER his initial x-rays were unrevealing but his MRI revealed a subcapital fracture of the left hip with evidence of a mild left obturator externus muscle strain complicated by laboratory evidence of moderate thrombocytopenia of 123 present on admission and clinical evidence of acute urinary obstruction; requiring Lee placement with the orthopedist on-call recommending patient be admitted to the hospitalist service and that he be kept n.p.o. for ORIF tomorrow which was done. He was then admitted to the general medical floor for ongoing care for stay that is expected to be greater than 48 hours. [facility] Medical History Abdominal aortic aneurysm (AAA) Anemia of unknown etiology Aneurysm, common iliac artery Atherosclerotic heart disease of [place] coronary artery without angina pectoris BPH (benign prostatic hyperplasia) BPH w urinary obs/LUTS Chronic back pain greater than 3 months duration Chronic respiratory failure with hypoxia COPD (chronic obstructive pulmonary disease) Diverticulosis Essential hypertension Gastroesophageal reflux disease Gout HLD (hyperlipidemia) Non-ischemic cardiomyopathy Premature ventricular contraction Sleep apnea Spinal stenosis Home Medications budesonide-formoterol HFA 160 mcg-4.5 mcg/actuation aerosol inhaler 2 puff inhalation BID SHORTNESS OF BREATH 12/20/14 [History Last Taken 02/23/23 06:00] Handicap placard #1 ea 07/30/22 [Rx Last Taken Unknown] ipratropium 0.5 mg-albuterol 3 mg (2.5 mg base)/3 mL nebulization soln 3 ml inhalation Q6H PRN SHORTNESSOF BREATH 08/31/22 [History Last Taken 02/23/23] tiotropium bromide 18 mcg capsule with inhalation device 18 mcg inhalation DAILY SHORTNES OF BREATH 08/31/22 [History Last Taken 02/23/23] allopurinol 300 mg tablet 300 mg PO DAILY GOUT #90 tabs 11/07/22 [Rx Last Taken 02/23/23 06:00] carvedilol 25 mg tablet 25 mg PO BID HEART HEALTH #180 tabs 11/07/22 [Rx Last Taken 02/23/23 06:00] ezetimibe 10 mg tablet 10 mg PO DAILY CHOLESTEROL #90 tabs 11/07/22 [Rx Last Taken 02/22/23 18:30] potassium gluconate 595 mg (99 mg) tablet 595 mg PO DAILY SUPPLEMENT #90 tabs 11/07/22 [Rx Last Taken 02/22/23 18:00] ascorbic acid (vitamin C) 1,000 mg capsule 1 g PO BID SUPPLEMENT 06/12/23 [History Last Taken Unknown] nitroglycerin 0.4 mg sublingual tablet 0.4 mg sublingual Q5M PRN CHEST PAIN #25 tabs 06/12/23 [Rx Last Taken Unknown] aspirin 81 mg tablet,delayed release (Adult Aspirin Regimen) 81 mg PO DAILY HEART HEALTH 08/13/23 [History Last Taken Unknown] furosemide 20 mg tablet 5 mg PO QODAY FLUID 08/13/23 [History Last Taken Unknown] Allergy/AdvReac Type Severity Reaction Status Date / Time Byjehtt-XAT-NfR Reductase Allergy Chest Verified 06/12/23 11:37 Inhibitor tightness [Elrwiff-Qdr-Lsi Reductase Inhibitor] Sulfa (Sulfonamide Allergy Swelling Verified 06/12/23 11:37 Antibiotics) venom-honey bee Allergy Anaphylaxis Verified 06/12/23 11:37 [bee venom (honey bee)] Corticosteroids AdvReac GROUCHY Verified 06/12/23 11:37 (Glucocorticoids) [steroids] Family History Sister Diabetes Mother Hypertension CAD (coronary artery disease) Father No problems noted. Other Asthma Breast cancer Heart disease Hyperlipemia Respiratory disease Surgical History History of cataract surgery History of colonoscopy (2009) History of laminectomy History of left heart catheterization (06/05/22) History of right and left heart catheterization (10/02/12) History of tonsillectomy History of umbilical hernia repair (~02/2023) S/P decompression of ulnar nerve at elbow Social History household members: spouse Smoking Status: Former smoker how long ago did patient quit smokin years ago alcohol intake: current alcohol intake frequency: holidays/special occasions only substance use type: does not use caffeine: No ROS ROS Narrative Review of systems: Constitutional: Patient admits to generalized weakness with inability to ambulate secondary to pain but he denies fevers or chills. Eyes: Patient denies visual changes. ENT: Patient denies runny nose ear pain or sore throat. Cardiovascular: Patient denies chest pain, chest pressure or palpitations. Respiratory: Patient denies any acute worsening of his chronic dyspnea. Gastrointestinal: Patient denies abdominal pain, nausea, vomiting, diarrhea or constipation. Urinary: Patient denied urinary frequency or hesitancy but was found to have pearl roximately 560 cc on bladder scan. Musculoskeletal: Patient admits to severe pain in the left hip that is made worse with any attempt at movement. Neurological: Patient denies headache, syncope, paresthesias or focal neurologic deficits. Skin: Patient denies rashes, abrasions or lacerations. Psychiatric: Patient denies depression or anxiety. Hematologic: Patient denies easy bleeding or easy bruisability. Allergies: Patient denies lip swelling, tongue swelling or urticaria. 14 point review systems otherwise negative except for positives noted above in HPI. Vital Signs Vital Signs Vital Signs: 08/13/23 13:17 08/13/23 13:28 08/13/23 13:29 Temperature 96.2 F L Temperature Source Temporal Pulse Rate 83 80 Respiratory Rate 16 Respiratory Effort Normal Respiratory Depth Normal Respiratory Pattern Normal Blood Pressure 122/70 H 122/70 H Blood Pressure Mean 87 87 Pulse Ox 91 95 95 Oxygen Delivery Method Room Air Nasal Cannula Nasal Cannula Oxygen Flow Rate (L/min) 2 2 08/13/23 15:35 Temperature Temperature Source Pulse Rate 83 Respiratory Rate 18 Respiratory Effort Respiratory Depth Respiratory Pattern Blood Pressure 115/61 Blood Pressure Mean 79 Pulse Ox 93 Oxygen Delivery Method Room Air Oxygen Flow Rate (L/min) Weight Weight: 246 lb 7.629 oz Body Mass Index (BMI) 37.5 Physical Exam Const alert and oriented x3 Constitutional Narrative: Patient having significant pain at rest that is made worse with movement. General Appearance: cooperative HEENT normocephalic, head/scalp atraumatic, hearing grossly normal bilaterally and moist oral mucous membranes Eyes PERRL and EOMs intact bilaterally Neck no lymphadenopathy and supple Resp normal respiratory effort, no retractions, no use of accessory muscles and clear to auscultation bilaterally Cardio regular rate and regular rhythm GI normal to inspection, nondistended, normoactive bowel sounds, soft to palpation, non-tender and non-distended Extremity Extremity Narrative: Patient has left hip pain at rest that is made worse with movement. Positive logroll sign. Negative signs of vascular compromise with good pulses throughout. Skin Skin Narrative: Patient has no evidence of rash at this time. Neuro oriented x3, CN's II-XII intact bilaterally, moves all extremities and no focal motor deficits Sensorium / Orientation: awake, alert, oriented to person, oriented to place and oriented to time Speech: speech normal Psych affect normal Results Medical Records Data Attestation: I reviewed the patient's medical records Lab / Micro Data Attestation: I reviewed the patient's lab results. 08/13/23 13:58 08/13/23 13:58 Labs: Laboratory Results - last 24 hr 08/13/23 13:58: WBC 6.3, RBC 4.32 L, Hgb 13.1, Hct 41.1, MCV 95.1 H, MCH 30.3, MCHC 31.9 L, RDW Std Deviation 52.8 H, RDW Coeff of Pito 15.1 H, Plt Count 123 L, MPV 9.9, Immature Gran % (Auto) 0.500, Neut % (Auto) 65.6, Lymph % (Auto) 23.2, [place] % (Auto) 8.7, Eos % (Auto) 1.4, Baso % (Auto) 0.6, Absolute Neuts (auto) 4.1, Absolute Lymphs (auto) 1.46, Nucleated RBC % 0, PT 13.6, INR 1.0, Sodium 143, Potassium 3.9, Chloride 111 H, Carbon Dioxide 27.0, Anion Gap 5, BUN 16, Creatinine 0.84, Estim Creat Clear Calc 66.73, Est GFR (MDRD) Af Amer 113, Est G FR (MDRD) Non-Af 94, BUN/Creatinine Ratio 19.1, Glucose 113 H, Calcium 8.6 Imagaing Radiology Impression Pelvis X-Ray 08/13/23 13:48 IMPRESSION: Mild joint space narrowing of both hip joints. Electronically Signed: Wallace Friedman MD at 15:01 EST , Femur X-Ray 08/13/23 14:38 IMPRESSION: Normal x-ray examination of the femur. Electronically Signed: Wallace Friedman MD at 15:00 EST , Lower Extremity MRI 08/13/23 15:20 IMPRESSION: * Acute minimally impacted but otherwise nondisplaced subcapital fracture of the left femur. * Mild left obturator externus muscle strain. * Mild bilateral common hamstring tendinosis. * Diverticulosis coli. Electronically Signed: Mario Vera MD at 18:56 EST Reading Location ID and State: [facility] Tel , Service support , Assessment & Plan Assessment/Plan (1) Closed fracture of left hip: QUALIFIERS: Encounter type: initial encounter Qualified Code(s): S72.002A - Fracture of unspecified part of neck of left femur, initial encounter for closed fracture (2) Fall: QUALIFIERS: Encounter type: initial encounter Qualified Code(s): W19.XXXA - Unspecified fall, initial encounter (3) BPPV (benign paroxysmal positional vertigo): QUALIFIERS: Laterality: unspecified laterality Qualified Code(s): H81.10 - Benign paroxysmal vertigo, unspecified ear (4) Acute urinary retention: PLAN: Plan 1. Acute subcapital fracture of the left hip after mechanical fall at home - Admit to general medical floor and keep n.p.o. except for medications. Place le ft lower extremity on 5 pounds of Stearns's traction. Give Tylenol as needed for mild to moderate level 1-5 out of 10 pain or fever. Give morphine IV as needed for severe level 6-10 out of 10 pain. Finally, we will consult the orthopedist on-call see this patient on rounds in the a.m. for recommendations regarding ORIF help appreciated in advance. 2. History of coronary artery disease; status post UT with most recent left heart catheterization in May 2022 plus nonischemic cardiomyopathy with cardiomegaly followed by Dr. Lyles complicating #1 - Check echocardiogram to evaluate LVEF and assess for possible aortic valvulopathy with frequent falls, dyspnea and angina. Finally, we will consult Dr. Lyles of the cardiology service for preoperative evaluation in this relatively high-risk patient with help appreciated in advance. 3. Frequent Falls with sudden loss of balance with sudden change of head position likely due to underlying BPPV compounding from #1 & #2 - PT/OT and Case Management to consult and treat this admission as he will likely require a facility for rehabilitation with help appreciated in advance. Give Antivert prn for breakthrough symptoms. 4. Acute urinary retention; requiring Lee placement in the setting of known BPH adding to the pathology of #1 - #3 - Lee placed patient could not urinate. Follow strict I's and O's and check PSA screen. 5. Severe GERD; refractory to oral antacids apparently exacerbated by all of the above - Patient failed with TUMS and Maalox with escalation to nausea and vomiting so IV Protonix was started. 6. Essential hypertension - Continue home medications as previous plus give as needed IV hydralazine for systolic blood pressure greater than 160 mmHg. 7. Hyperlipidemia; with intolerance to statins - Stable. Resume home regimen. 8. Obesity; with BMI of 32.5 this admission plus obstructive sleep apnea - Weight loss will be recommended. Continue CPAP. Check TSH this admission. 9. History of tobacco abuse (quit smoking approximately 20 years ago); with subsequent COPD plus chronic hypoxic respiratory failure on 2 L nasal cannula continuously - Stable with no evidence of flare at this time. Continue supplemental oxygen and as needed nebulizers. 10. History of abdominal aortic aneurysm and aneurysm of the common iliac artery - Noted with no signs of active disease at this time. 11. History of colonic diverticulosis - Noted. 12. Chronic gout - Stable with no evidence of acute flare. Continue allopurinol as previous. 13. Spinal stenosis and osteoarthritis; with chronic back pain - Stable. Will use pain regimen outlined in #1. 14. DVT prophylaxis - Place SCD on RLE. We will avoid preoperative blood thinners in patients with traumatic fracture due to increased risk of potential bleeding complications. Orthopedic team to decide upon postoperative DVT prophylaxis. Total time: Approximately 55 minutes. Charges/Coding Visit Charges Inpatient E&M: 54122 Init Hosp L2
--- NOTE | 2023-08-13 20:22 | ECHOCS_ITS ---
Reason For Study: Pre Op Procedure This was a 2D Doppler, Color Flow transthoracic echocardiogram. Very Technically difficult study. Patient scanned supine due to left hip fracture. Contrast injection was performed. Exam performed portable in patient room. Left Ventricle Normal LV size. Grossly normal LV systolic function. The estimated ejection fraction is 55 %. Right Ventricle Normal RV size. Normal systolic function. Atria The left and right atria are normal. Mitral Valve The mitral valve is structurally normal. No prolapse or stenosis seen. Tricuspid Valve Normal tricuspid valve. Mild (1+) tricuspid valve insufficiency. Aortic Valve Aortic sclerosis, no stenosis. Mild focal aortic valve thickening. Trisinus/trileaflet aortic valve. Pulmonic Valve The pulmonic valve is not well visualized. Great Vessels Normal aortic root. Pericardium/Pleural No pericardial effusion. Medication Diluted definity 4ml given slow IV push to enhance endocardial definition. MMode/2D Measurements & Calculations RVDd: 4.5 cm Ao root diam: 3.8 cm LAV(MOD-bp): 50.7 ml LAV(MOD-bp) Indexed: 23.8 ml/m2 LAV(MOD-sp2): 40.5 ml LAV(MOD-sp4): 50.5 ml LA A4 area: 21.5 cm2 RA A4 area: 17.5 cm2 Time Measurements MV dec time: 0.31 sec Doppler Measurements & Calculations MV E max chavo: 48.4 cm/sec Lat Peak E' Chavo: 10.6 cm/sec Med Peak E' Chavo: 8.8 cm/sec MV A max chavo: 79.3 cm/sec E/E' lat: 4.6 E/E' med: 5.5 MV E/A: 0.61 MV V2 max: 83.5 cm/sec MV P1/2t max chavo: 62.9 cm/sec Ao V2 max: 120.2 cm/sec MV max P.8 mmHg MV P1/2t: 109.0 msec Ao max P.8 mmHg MV V2 mean: 42.9 cm/sec MV mean P.88 mmHg MV dec slope: 169.2 cm/sec2 MV V2 VTI: 24.6 cm MVA(P1/2t): 2.0 cm2 LV V1 max: 75.7 cm/sec LV V1 max P.3 mmHg ECHO/Echo Complete W/ Contrast Interpretation Summary Grossly normal LV systolic function. The estimated ejection fraction is 55 %. Mild (1+) tricuspid valve insufficiency. Contrast echo using Definity used No significant change from previous echocardiogram in 2017 The study was technically limited. The study was technically difficult. Contras t injection was performed. Ordering Physician: Mario Amor Referring Physician: Mary Arreola M.D. Performed By: Skip Watkins RCS
[2023-08-13] MEDS: Ascorbic Acid 500 MG Tablet 1000 MG PO (22:06)
[2023-08-13] MEDS: 0.9% Saline Lock 10 ML Syringe IV (22:38)
[2023-08-13] MEDS: Morphine 2 MG/ML Syringe IV (22:38)
[2023-08-13] MEDS: Calcium Carbonate 500 MG Tablet PO (22:39)
[2023-08-13] MEDS: Nystatin Powder 15gm Bottle 1 APPLIC TOPICAL (22:57)
[2023-08-14] VITALS (15 sets, daily range): BP systolic 92–133; BP diastolic 60–79; PULSE 66–97; RESP 14–20; TEMP 36.6–37.1; O2SAT 92–97
[2023-08-14] MEDS: oxyCODONE 5 MG Tablet PO ×2 (01:19→23:21)
[2023-08-14] MEDS: cycloBENZAPRine HCl 10 MG Tablet 5 MG PO (01:20)
[2023-08-14] MEDS: Acetaminophen 325 MG Tablet 650 MG PO ×2 (01:20→23:20)
[2023-08-14] MEDS: Mag Hydrox/Al Hydrox/Simeth 30 ML UDC PO (01:21)
[2023-08-14] MEDS: Ondansetron 4 MG/2 ML Vial IV (01:26)
[2023-08-14] MEDS: Morphine 2 MG/ML Syringe IV (02:01)
[2023-08-14] MEDS: Pantoprazole Sodium 40 MG in 0.9% Normal Saline (100mL MB+) 100 ML 330 MG IV (02:12)
[2023-08-14] MEDS: proCHLORPERazine 10 MG/2 ML Vial IV ×2 (02:50→09:44)
[2023-08-14] MEDS: 0.9% Normal Saline (1000mL) 1,000 ML 125 ML IV ×3 (03:50→20:28)
--- NOTE | 2023-08-14 06:00 | EKG12_ITS ---
Test Reason : PRE-OP Blood Pressure : / mmHG Vent. Rate : 101 BPM Atrial Rate : 101 BPM P-R Int : 138 ms QRS Dur : 096 ms QT Int : 348 ms P-R-T Axes : 049 054 053 degrees QTc Int : 451 ms Sinus tachycardia with frequent Premature ventricular complexes Otherwise normal ECG Confirmed by ALFREDO PENA, ROOPA ([id number]), continuity editor MARLEN HOPE ([id number]) on 08/15/2023 10:52:09 AM Referred By: PEREZ Confirmed By:ROOPA FUENTES MD
[2023-08-14] MEDS: Ipratropium 0.5 MG/2.5 ML SOLUTION INHALATION ×3 (06:57→19:28)
[2023-08-14] MEDS: Budesonide Respules 0.5 MG/2 ML AMPUL.NEB. INHALATION ×2 (06:57→19:28)
[2023-08-14 06:58] LABS: Partial Thromboplast Time 33.8 Seconds (24.1-36.2)
[2023-08-14 07:13] LABS: Thyroid Stim Hormone (TSH) 0.61 uIU/mL (0.358-3.74)
[2023-08-14 08:15] LABS: PSA,Total - Annual Screen 0.37 ng/mL (0.00-4.00)
--- NOTE | 2023-08-14 09:06 | CON.PCM.CA_ITS ---
<Statement entered by Madalyn Forrest MD - 08/14/23 12:43> Pt seen & evaluated w/BILL. I personally interviewed & exam the pt. I was involved in all aspects of pt's orders, interpretation of results & treatment Assessment & Plan Assessment/Plan (1) Atherosclerotic heart disease of [place] coronary artery without angina pectoris: (2) Non-ischemic cardiomyopathy: (3) Essential hypertension: (4) HLD (hyperlipidemia): PLAN: Plan * Pt has not had any anginal symptoms since his last OV. His heart cath from 05/2022 demonstrated normal coronary arteries. Echo from today demonstrated a normal EF 55%. * From a cardiac standpoint, okay to proceed with surgery. HPI Consult Data Date of Consult: 08/14/23 HPI Narrative HPI Narrative: MARI AINES MENENDEZ, is a 82 M who presented to [facility] with a left hip fracture from a fall. We were asked to consult for cardiac clearance for surgery. He was last seen in our office in 05/2023. At that time he did not have any cardiac complaints. He has a history of coronary artery disease, nonischemic cardiomy opathy, hypertension, abdominal aortic aneurysm who presents for evaluation. He apparently has been experiencing chest discomfort described as a heaviness substernal radiating across his chest up to his ears and usually relieved with sublingual nitroglycerin. He says that he had had these episodes in the past and it culminated in multiple stress test demonstrating ischemia and a cardiac catheterization the last of which he thinks was in 2012 demonstrating a normal left ventricular end-diastolic pressure normal right-sided pressures single- vessel disease involving an isolated branch vessel diagonal vessel and luminal irregularities noted in the circumflex artery, right coronary artery and left anterior descending artery. His last evaluation with an echocardiogram was in October 2020 demonstrating ejection fraction of 50 to 55%. His last stress test was in December 2017 demonstrating no evidence of ischemia. He underwent a cardiac catheterization in May of 2022, which demonstrated nonobstructive coronary arteries. 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 BPH (benign prostatic hyperplasia) BPH w urinary obs/LUTS Chronic back pain greater than 3 months duration Chronic respiratory failure with hypoxia COPD (chronic obstructive pulmonary disease) Diverticulosis Essential hypertension Gastroesophageal reflux disease Gout HLD (hyperlipidemia) Non-ischemic cardiomyopathy Premature ventricular contraction Sleep apnea Spinal stenosis Home Medications budesonide-formoterol HFA 160 mcg-4.5 mcg/actuation aerosol inhaler 2 puff inhalation BID SHORTNESS OF BREATH 12/20/14 [History Last Taken 02/23/23 06:00] Handicap placard #1 ea 07/30/22 [Rx Last Taken Unknown] ipratropium 0.5 mg-albuterol 3 mg (2.5 mg base)/3 mL nebulization soln 3 ml inhalation Q6H PRN SHORTNESSOF BREATH 08/31/22 [History Last Taken 02/23/23] tiotropium bromide 18 mcg capsule with inhalation device 18 mcg inhalation DAILY SHORTNES OF BREATH 08/31/22 [History Last Taken 02/23/23] allopurinol 300 mg tablet 300 mg PO DAILY GOUT #90 tabs 11/07/22 [Rx Last Taken 02/23/23 06:00] carvedilol 25 mg tablet 25 mg PO BID HEART HEALTH #180 tabs 11/07/22 [Rx Last Taken 02/23/23 06:00] ezetimibe 10 mg tablet 10 mg PO DAILY CHOLESTEROL #90 tabs 11/07/22 [Rx Last Taken 02/22/23 18:30] potassium gluconate 595 mg (99 mg) tablet 595 mg PO DAILY SUPPLEMENT #90 tabs 11/07/22 [Rx Last Taken 02/22/23 18:00] ascorbic acid (vitamin C) 1,000 mg capsule 1 g PO BID SUPPLEMENT 06/12/23 [History Last Taken Unknown] nitroglycerin 0.4 mg sublingual tablet 0.4 mg sublingual Q5M PRN CHEST PAIN #25 tabs 06/12/23 [Rx Last Taken Unknown] aspirin 81 mg tablet,delayed release (Adult Aspirin Regimen) 81 mg PO DAILY [facility] 08/13/23 [History Last Taken Unknown] furosemide 20 mg tablet 5 mg PO QODAY FLUID 08/13/23 [History Last Taken Unknown] Allergy/AdvReac Type Severity Reaction Status Date / Time Gklvhxf-CUW-OaG Reductase Allergy Chest Verified 06/12/23 11:37 Inhibitor tightness [Thajzws-Zhq-Jgo Reductase Inhibitor] Sulfa (Sulfonamide Allergy Swelling Verified 06/12/23 11:37 Antibiotics) venom-honey bee Allergy Anaphylaxis Verified 06/12/23 11:37 [bee venom (honey bee)] Corticosteroids AdvReac GROUCHY Verified 06/12/23 11:37 (Glucocorticoids) [steroids] Family History Sister Diabetes Mother Hypertension CAD (coronary artery disease) Father No problems noted. Other Asthma Breast cancer Heart disease Hyperlipemia Respiratory disease Surgical History History of cataract surgery History of colonoscopy (2009) History of laminectomy History of left heart catheterization (06/05/22) History of right and left heart catheterization (10/02/12) History of tonsillectomy History of umbilical hernia repair (~02/2023) S/P decompression of ulnar nerve at elbow Social History household members: spouse Smoking Status: Former smoker how long ago did patient quit smokin years ago alcohol intake: current alcohol intake frequency: holidays/special occasions only substance use type: does not use caffeine: No ROS Constitutional Constitutional: Denies fatigue, headache(s) or lethargy Eyes Eyes: Denies acute decrease in peripheral vision, blurry vision or change in vision ENT HEENT: Denies dizziness, dry mouth, epistaxis, headache(s), tinnitus or vertigo Cardiovascular Cardiovascular: Reports chest pain with activity and other Details: CP with exertion, no worse than previous, had cath for this ; Denies chest pain at rest, claudication, edema, irregular heart rhythm, light headedness, palpitations or pedal edema Respiratory/Chest Respiratory/Chest: Reports dyspnea on exertion and other Details: no worse is on O2 ; Denies cough, dyspnea, tachypnea or wheezing Gastrointestinal Gastrointestinal: Denies abdominal pain, bloating, coffee ground emesis, diarrhea, heartburn, hematemesis, hematochezia, melena or nausea Genitourinary Genitourinary: Denies hematuria Neurologic Neurologic: Reports other Details: occasional positional dizziness ; Denies abnormal gait, abnormal speech, memory loss, paresthesias or weakness Physical Exam Const alert, oriented x3 and no apparent distress HEENT normocephalic, head/scalp atraumatic, hearing grossly normal bilaterally, external ears normal, external nose normal and moist oral mucous membranes Eyes PERRL, EOMs intact bilaterally, conjunctivae normal and no scleral icterus Neck no lymphadenopathy, supple and no JVD Resp normal respiratory effort and clear to auscultation bilaterally Cardio regular rate, regular rhythm, S1 normal heart sound, S2 normal heart sound, no murmurs, no rub, no gallops, no clicks, no JVD and peripheral pulses 2+ throughout GI normal to inspection, nondistended, normoactive bowel sounds, soft to palpation, non-tender and non-distended Extremity normal to inspection, normal capillary refill, no clubbing, cyanosis or edema and no pedal edema Neuro oriented x3, CN's II-XII intact bilaterally, moves all extremities and no focal motor deficits Psych cooperative and affect normal Risk Stratification Risk Stratification Applicable: No Charges/Coding Visit Charges Office Visits / Consults: 62375 IP Consult L3 Objective Data Vital Signs: Vital Signs Temp Pulse Resp BP Pulse Ox O2 Del Method O2 Flow Rate 98 F 96 18 130/73 H 95 Nasal Cannula 3 08/14/23 03:58 08/14/23 03:58 08/14/23 03:58 08/14/23 03:58 08/14/23 03:58 08/14/23 03:58 08/14/23 03:58 Oxygen Flow Rate (L/min) 3 Oxygen Delivery Method Nasal Cannula Weight: 220 lb 7.396 oz Body Mass Index (BMI) 32.5 Intake & Output: Intake and Output for Last 24 Hours 08/12/23 08/13/23 08/14/23 23:59 23:59 23:59 Intake Total 1000 / 1000 755.83 / 755.83 Output Total 600 / 600 Balance 1000 / 1000 155.83 / 155.83 Lab / Micro Data 08/13/23 13:58 08/13/23 13:58 Labs: Laboratory Results - last 24 hr 08/13/23 13:58: WBC 6.3, RBC 4.32 L, Hgb 13.1, Hct 41.1, MCV 95.1 H, MCH 30.3, MCHC 31.9 L, RDW Std Deviation 52.8 H, RDW Coeff of Pito 15.1 H, Plt Count 123 L, MPV 9.9, Immature Gran % (Auto) 0.500, Neut % (Auto) 65.6, Lymph % (Auto) 23.2, [place] % (Auto) 8.7, Eos % (Auto) 1.4, Baso % (Auto) 0.6, Absolute Neuts (auto) 4.1, Absolute Lymphs (auto) 1.46, Nucleated RBC % 0, PT 13.6, INR 1.0, Sodium 143, Potassium 3.9, Chloride 111 H, Carbon Dioxide 27.0, Anion Gap 5, BUN 16, Creatinine 0.84, Estim Creat Clear Calc 66.73, Est GFR (MDRD) Af Amer 113, Est GFR (MDRD) Non-Af 94, BUN/Creatinine Ratio 19.1, Glucose 113 H, Calcium 8.6 08/13/23 19:45: Blood Type A POSITIVE, Antibody Screen NEGATIVE 08/14/23 06:06: APTT 33.8, PSA Screen 0.37, TSH 0.61 Micro: Microbiology 08/14/23 02:35 Vomitus Gastric Occult Blood - Final Occult Blood Positive Cardiology Labs/Tests 08/13/23 13:58: WBC 6.3, RBC 4.32 L, Hgb 13.1, Hct 41.1, MCV 95.1 H, MCH 30.3, MCHC 31.9 L, Plt Count 123 L, MPV 9.9, Immature Gran % (Auto) 0.500, Neut % (Auto) 65.6, Lymph % (Auto) 23.2, [place] % (Auto) 8.7, Eos % (Auto) 1.4, Baso % (Auto) 0.6, Absolute Neuts (auto) 4.1, Nucleated RBC % 0, PT 13.6, INR 1.0, Sodium 143, Potassium 3.9, Chloride 111 H, Carbon Dioxide 27.0, Anion Gap 5, BUN 16, Creatinine 0.84, Est GFR (MDRD) Af Amer 113, Est GFR (MDRD) Non-Af 94, BUN/Creatinine Ratio 19.1, Glucose 113 H, Calcium 8.6 08/14/23 06:06: APTT 33.8 Rhythm: NSR Radiography Diagnostic Testing: Radiology Impression Pelvis X-Ray 08/13/23 13:48 IMPRESSION: Mild joint space narrowing of both hip joints. Electronically Signed: Wallace Friedman MD at 15:01 EST , Femur X-Ray 08/13/23 14:38 IMPRESSION: Normal x-ray examination of the femur. Electronically Signed: Wallace Friedman MD at 15:00 EST , Lower Extremity MRI 08/13/23 15:20 IMPRESSION: * Acute minimally impacted but otherwise nondisplaced subcapital fracture of the left femur. * Mild left obturator externus muscle strain. * Mild bilateral common hamstring tendinosis. * Diverticulosis coli. Electronically Signed: Mario Vera MD at 18:56 EST ,
--- NOTE | 2023-08-14 11:51 | CASEMGMT ---
Discharge Planning A list of?SNF providers including quality and resource use data and consistent with the patient's preferred geographic region, medical needs, and insurance network was created in [employer] Guide.? This list was provided to the SW. Celine Zeng Discharge Planning Asst.
--- NOTE | 2023-08-14 11:58 | CASEMGMT ---
ANNEMARIE LOWRY Discharge Planning Assessment Face to Face with patient for initial transition planning/care coordination assessment. ANNEMARIE LOWRY introduced self and role at [facility], pt voices understanding. Pt resting comfortably in bed at this time. Pt is A&Ox4 and is calm. Care providers, pharmacy, and demographics verified. Admitting dx: Fall, Lt Hip Fracture LACE Strata:3 PCP: [facility] Specialists: Trupti ([employer]ine Equipment Design Engineer), Alen (Surgeon), Bibiana Sierra ([facility] Tactical Intelligence Officer) Preferred Pharmacy: [facility] ([place]) Insurance: Gamar [facility] Prescription Benefit: Yes LNOK:Arnold Rebolledo (SSON). Pt is to [place]. Pt states that she has dementia. Living Arrangements: Pt reports living in a ranch home with his . Pt states there are 5 steps to enter the home with a ramp and hand rails. Pt reports independence with ADLs and IADLs prior to fall and fracture. Pt states he is able to care for his at baseline. Pt reports Arnold is caring for his at this time and states that Arnold has a flexible work schedule and is able to care for her as long as needed. Pt receives Meals on Wheels Transportation: Pt drives DME: Reports cane x2 and walker at home. States 2L O2 NC at home. Supplied from [facility]. SNF/HHC: Denies Pt?s goal/plan: Pt states that he feels like he will need to discharge to SNF after surgery. Made aware and list provided. Plan: Discharge to SNF Isamar Blancas RN, CM
--- NOTE | 2023-08-14 12:44 | PCM.PN.HOSP ---
Subjective Subjective No issues overnight, evaluated by cardiology as he has intermittent episodes of chest pain and was deemed appropriate for surgery for his hip fracture. Objective Data Objective Data Vital Signs: Vital Signs Temp Pulse Resp BP Pulse Ox O2 Del Method O2 Flow Rate 98.2 F 92 20 H 116/73 93 High Flow 5 08/14/23 12:08 08/14/23 12:08 08/14/23 12:08 08/14/23 12:08 08/14/23 12:08 08/14/23 12:08 08/14/23 12:08 Oxygen Flow Rate (L/min) 5 Oxygen Delivery Method High Flow Weight: 220 lb 7.396 oz Body Mass Index (BMI) 32.5 Intake & Output: Intake and Output for Last 24 Hours 08/13/23 08/14/23 08/15/23 03:59 03:59 03:59 Intake Total 1755.83 / 1755.83 1000 / 1000 Output Total 750 / 750 Balance 1755.83 / 1755.83 250 / 250 Lab / Micro Data 08/13/23 13:58 08/13/23 13:58 Labs: Laboratory Results - last 24 hr 08/13/23 13:58: WBC 6.3, RBC 4.32 L, Hgb 13.1, Hct 41.1, MCV 95.1 H, MCH 30.3, MCHC 31.9 L, RDW Std Deviation 52.8 H, RDW Coeff of Pito 15.1 H, Plt Count 123 L, MPV 9.9, Immature Gran % (Auto) 0.500, Neut % (Auto) 65.6, Lymph % (Auto) 23.2, [place] % (Auto) 8.7, Eos % (Auto) 1.4, Baso % (Auto) 0.6, Absolute Neuts (auto) 4.1, Absolute Lymphs (auto) 1.46, Nucleated RBC % 0, PT 13.6, INR 1.0, Sodium 143, Potassium 3.9, Chloride 111 H, Carbon Dioxide 27.0, Anion Gap 5, BUN 16, Creatinine 0.84, Estim Creat Clear Calc 66.73, Est GFR (MDRD) Af Amer 113, Est GFR (MDRD) Non-Af 94, BUN/Creatinine Ratio 19.1, Glucose 113 H, Calcium 8.6 08/13/23 19:45: Blood Type A POSITIVE, Antibody Screen NEGATIVE 08/14/23 06:06: APTT 33.8, PSA Screen 0.37, TSH 0.61 Micro: Microbiology 08/14/23 02:35 Vomitus Gastric Occult Blood - Final Occult Blood Positive Radiography Diagnostic Testing: Radiology Impression Pelvis X-Ray 08/13/23 13:48 IMPRESSION: Mild joint space narrowing of both hip joints. Electronically Signed: Wallace Friedman MD at 15:01 EST , Femur X-Ray 08/13/23 14:38 IMPRESSION: Normal x-ray examination of the femur. Electronically Signed: Wallace Friedman MD at 15:00 EST , Lower Extremity MRI 08/13/23 15:20 IMPRESSION: * Acute minimally impacted but otherwise nondisplaced subcapital fracture of the left femur. * Mild left obturator externus muscle strain. * Mild bilateral common hamstring tendinosis. * Diverticulosis coli. Electronically Signed: Mario Vera MD at 18:56 EST , Echocardiogram 08/13/23 20:22 Interpretation Summary Grossly normal LV systolic function. The estimated ejection fraction is 55 %. Mild (1+) tricuspid valve insufficiency. Contrast echo using Definity used No significant change from previous echocardiogram in 2017 The study was technically limited. The study was technically difficult. Contrast injection was performed. Ordering Physician: Mario Amor Referring Physician: Mary Arreola M.D. Performed By: Skip Watkins RCS Physical Exam Narrative General: Alert, Oriented x3, Cooperative, No apparent distress HEENT: Atraumatic, PERRLA, EOMI, Normocephalic Oral: Moist Mucosa Neck: Supple, No JVD Lungs: Diminished, Normal air movement, No rhonchi, No wheeze, No rales Cardiovascular: Regular rate, Regular Rhythm, Normal S1, Normal S2, No murmurs Abdomen: Soft, Non Tender, Non-Distended, No Hepato-splenomegaly Extremities: No edema, Capillary Refill Less than 3 Seconds Skin: No rashes, No breakdown Musculoskeletal: Left hip pain to palpation Neurological: Cranial nerves II-XII grossly intact, Motor Exam 5/5 strength throughout, Sensory exam intact to light touch and pain Psych/Mental Status: Normal Affect, Appropriate Assessment & Plan Assessment/Plan (1) Closed fracture of left hip: QUALIFIERS: Encounter type: initial encounter Qualified Code(s): S72.002A - Fracture of unspecified part of neck of left femur, initial encounter for closed fracture (2) Fall: QUALIFIERS: Encounter type: initial encounter Qualified Code(s): W19.XXXA - Unspecified fall, initial encounter (3) BPPV (benign paroxysmal positional vertigo): QUALIFIERS: Laterality: unspecified laterality Qualified Code(s): H81.10 - Benign paroxysmal vertigo, unspecified ear (4) Acute urinary retention: PLAN: Plan 1. Acute subcapital fracture of left hip after mechanical fall ? Plan for orthopedic surgical repair today ? Continue with pain management ? PT/OT ? He was considered low risk by cardiology after evaluation and echo can proceed with surgery ? Consult case management for discharge planning 2. CAD/HTN/HLD ? Blood pressure stable ? Can resume his home blood pressure medications ? We will monitor make adjustments as necessary 3. GERD ? Stable ? Continue with Protonix ? Gastroenterology was consulted 4. BPH ? Continue with Lee, has history of urinary retention ? After surgery may need to be started on Flomax 5. Chronic gout ? Stable ? Continue with allopurinol DVT: SCDs Charges/Coding Visit Charges Inpatient E&M: 63541 Subs Hosp L2
--- NOTE | 2023-08-14 13:06 | PCM.CONS.GEN ---
Assessment & Plan Assessment/Plan (1) Fracture of femoral neck, left: QUALIFIERS: Encounter type: initial encounter Fracture type: closed Qualified Code(s): S72.002A - Fracture of unspecified part of neck of left femur, initial encounter for closed fracture PLAN: Plan Acute nondisplaced left femoral neck fracture subcapital discussed with patient percutaneous screw fixation of the left hip he does wish to proceed risk-benefit and alternatives of surgery reviewed including risk of bleeding infection nerve artery tissue damage need for further surgery continued pain postoperative weightbearing restrictions and expected postoperative course. Plan to proceed this afternoon 4:00 patient is n.p.o. antibiotics on-call to the OR he is medically cleared typically will start blood thinner morning after surgery however considerations may be made considering possible GI bleed. HPI Consult Data Date of Consult: 08/14/23 HPI Narrative HPI Narrative: MARIA INES MENENDEZ, is a 82 M who presents after ground-level fall chasing his cat landing onto his left hip. Patient immediately had pain and inability ambulate he was seen in the emergency room department initial x-rays were not diagnostics he did have an MRI performed which demonstrated a subcapital femoral neck fracture with mild impaction. He was admitted to the hospitalist service and I was consulted for this fracture. 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 BPH (benign prostatic hyperplasia) BPH w urinary obs/LUTS Chronic back pain greater than 3 months duration Chronic respiratory failure with hypoxia COPD (chronic obstructive pulmonary disease) Diverticulosis Essential hypertension Gastroesophageal reflux disease Gout HLD (hyperlipidemia) Non-ischemic cardiomyopathy Premature ventricular contraction Sleep apnea Spinal stenosis Home Medications budesonide-formoterol HFA 160 mcg-4.5 mcg/actuation aerosol inhaler 2 puff inhalation BID SHORTNESS OF BREATH 12/20/14 [History Last Taken 02/23/23 06:00] Handicap placard #1 ea 07/30/22 [Rx Last Taken Unknown] ipratropium 0.5 mg-albuterol 3 mg (2.5 mg base)/3 mL nebulization soln 3 ml inhalation Q6H PRN SHORTNESSOF BREATH 08/31/22 [History Last Taken 02/23/23] tiotropium bromide 18 mcg capsule with inhalation device 18 mcg inhalation DAILY SHORTNES OF BREATH 08/31/22 [History Last Taken 02/23/23] allopurinol 300 mg tablet 300 mg PO DAILY GOUT #90 tabs 11/07/22 [Rx Last Taken 02/23/23 06:00] carvedilol 25 mg tablet 25 mg PO BID HEART HEALTH #180 tabs 11/07/22 [Rx Last Taken 02/23/23 06:00] ezetimibe 10 mg tablet 10 mg PO DAILY CHOLESTEROL #90 tabs 11/07/22 [Rx Last Taken 02/22/23 18:30] potassium gluconate 595 mg (99 mg) tablet 595 mg PO DAILY SUPPLEMENT #90 tabs 11/07/22 [Rx Last Taken 02/22/23 18:00] ascorbic acid (vitamin C) 1,000 mg capsule 1 g PO BID SUPPLEMENT 06/12/23 [History Last Taken Unknown] nitroglycerin 0.4 mg sublingual tablet 0.4 mg sublingual Q5M PRN CHEST PAIN #25 tabs 06/12/23 [Rx Last Taken Unknown] aspirin 81 mg tablet,delayed release (Adult Aspirin Regimen) 81 mg PO DAILY HEART HEALTH 08/13/23 [History Last Taken Unknown] furosemide 20 mg tablet 5 mg PO QODAY FLUID 08/13/23 [History Last Taken Unknown] Allergy/AdvReac Type Severity Reaction Status Date / Time Minvvtr-Fbe-Mcp Reductase Allergy Chest Verified 06/12/23 11:37 Inhibitor tightness Sulfa (Sulfonamide Allergy Swelling Verified 06/12/23 11:37 Antibiotics) venom-honey bee Allergy Anaphylaxis Verified 06/12/23 11:37 [bee venom (honey bee)] Corticosteroids AdvReac GROUCHY Verified 06/12/23 11:37 (Glucocorticoids) [steroids] Family History Sister Diabetes Mother Hypertension CAD (coronary artery disease) Father No problems noted. Other Asthma Breast cancer Heart disease Hyperlipemia Respiratory disease Surgical History History of cataract surgery History of colonoscopy (2009) History of laminectomy History of left heart catheterization (06/05/22) History of right and left heart catheterization (10/02/12) History of tonsillectomy History of umbilical hernia repair (~02/2023) S/P decompression of ulnar nerve at elbow Social History household members: spouse Smoking Status: Former smoker how long ago did patient quit smokin years ago alcohol intake: current alcohol intake frequency: holidays/special occasions only substance use type: does not use caffeine: No Physical Exam Const alert, oriented x3 and no apparent distress Extremity Extremity Narrative: Left hip no open wounds ecchymosis or erythema he is able to plantarflex and dorsiflex his ankle, Lab / Micro Data 08/13/23 13:58 08/13/23 13:58 Labs: Laboratory Results - last 24 hr 08/13/23 13:58: WBC 6.3, RBC 4.32 L, Hgb 13.1, Hct 41.1, MCV 95.1 H, MCH 30.3, MCHC 31.9 L, RDW Std Deviation 52.8 H, RDW Coeff of Ptio 15.1 H, Plt Count 123 L, MPV 9.9, Immature Gran % (Auto) 0.500, Neut % (Auto) 65.6, Lymph % (Auto) 23.2, [place] % (Auto) 8.7, Eos % (Auto) 1.4, Baso % (Auto) 0.6, Absolute Neuts (auto) 4.1, Absolute Lymphs (auto) 1.46, Nucleated RBC % 0, PT 13.6, INR 1.0, Sodium 143, Potassium 3.9, Chloride 111 H, Carbon Dioxide 27.0, Anion Gap 5, BUN 16, Creatinine 0.84, Estim Creat Clear Calc 66.73, Est GFR (MDRD) Af Amer 113, Est GFR (MDRD) Non-Af 94, BUN/Creatinine Ratio 19.1, Glucose 113 H, Calcium 8.6 08/13/23 19:45: Blood Type A POSITIVE, Antibody Screen NEGATIVE 08/14/23 06:06: APTT 33.8, PSA Screen 0.37, TSH 0.61 Micro: Microbiology 08/14/23 02:35 Vomitus Gastric Occult Blood - Final Occult Blood Positive Imagaing Radiology Impression Pelvis X-Ray 08/13/23 13:48 IMPRESSION: Mild joint space narrowing of both hip joints. Electronically Signed: Wallace Friedman MD at 15:01 EST , Femur X-Ray 08/13/23 14:38 IMPRESSION: Normal x-ray examination of the femur. Electronically Signed: Wallace Friedman MD at 15:00 EST , Lower Extremity MRI 08/13/23 15:20 IMPRESSION: * Acute minimally impacted but otherwise nondisplaced subcapital fracture of the left femur. * Mild left obturator externus muscle strain. * Mild bilateral common hamstring tendinosis. * Diverticulosis coli. Electronically Signed: Mario Vera MD at 18:56 EST , Echocardiogram 08/13/23 20:22 Interpretation Summary Grossly normal LV systolic function. The estimated ejection fraction is 55 %. Mild (1+) tricuspid valve insufficiency. Contrast echo using Definity used No significant change from previous echocardiogram in 2017 The study was technically limited. The study was technically difficult. Contrast injection was performed. Ordering Physician: Mario Amor Referring Physician: Mary Arreola M.D. Performed By: Skip Watkins RCS
--- NOTE | 2023-08-14 15:16 | CHAPLAIN ---
Type of Pastoral Visit _x__ Initial Visit ___ Follow-up Visit ___ On-call Visit ___ General Patient Visit ___ Spiritual Assessment ___ Family Conference ___ Bereavement ___ Rapid Response ___ Code Blue ___ Other (describe below) Pastoral Care Referral From _x__ Patient ___ Family ___ Nurse ___ Physician ___ Grinder Set Up Operator Internal ___ Muck Miner ___ Other (describe below) Sacrament/Intervention _x__ Active listening ___ Anointing ___ Yarsani ___ Bereavement ___ Communion ___ Mary exploration ___ ___ Life review _x__ Prayer ___ Reconciliation ___ Sacrament of Sick _x__ Supportive presence ___ Wedding ___ Other (describe below) Pastoral Comments patient is lying down in the bed and is alert; pt is offered presence and support; pt states that he is to have surgery this afternoon sometime; pt is given time to talk about his situation; pt welcomes prayer to be said for him; pt states that he does not worry about anything and that he is cared for by a step son although I worry about him taking off work for me; time and presence given
[2023-08-14] MEDS: Lactated Ringers 1,000 ML 15 ML IV (15:44)
[2023-08-14] MEDS: Cefazolin 2 GM in 0.9% Normal Saline (100mL Bag) 100 ML IV (16:02)
--- NOTE | 2023-08-14 16:18 | RAD_ITS ---
STUDY: X-RAY - LEFT HIP REASON FOR EXAM: Male, 82 years old. PERCUTANEOUS SCREW FIXATION TECHNIQUE: 2 intraoperative fluoroscopic views of the hip. Intraoperative fluoroscopy utilized for 0 minutes 50.6 seconds. COMPARISON: None. FINDINGS: Intraoperative fluoroscopy utilized during placement of 3 screws across left femoral neck fracture . RAD/Hip 1 view with Pelvis IMPRESSION: Intraoperative fluoroscopy. Electronically Signed: Praveen Lopez MD at 21:01 EST ,
[2023-08-14] MEDS: Bupivacaine Mpf 0.5% 30 ML VIAL (16:54)
--- NOTE | 2023-08-14 17:09 | EX.PCM.CON.G ---
HPI Consult Data Date of Consult: 08/14/23 HPI Narrative Reason for Consultation: Anemia and possible GI bleed HPI Narrative: MARIA INES MENENDEZ, is a 82 M who presents with left hip pain after falling at home. He has a past medical history of essential hypertension, hyperlipidemia; with intolerance to statins, obesity; with BMI of 37.5 this admission plus obstructive sleep apnea, history of tobacco abuse. He also has a history of COPD, chronic hypoxic respiratory failure on 2 L nasal cannula continuously, history of coronary artery disease; status post OK with most recent left heart catheterization in May 2022. He presents to [facility] ER complaining of persistent left hip pain and inability to ambulate after fall. Mr. Menendez reports his symptoms began earlier on the morning of 08/13/2023 when he bent over in an effort to catch his cat when he stepped to the left side and subsequently lost his balance falling onto his left hip. In the ER his initial x-rays were unrevealing but his MRI revealed a subcapital fracture of the left hip with evidence of a mild left obturator externus muscle strain complicated by laboratory evidence of moderate thrombocytopenia of 123 present on admission and clinical evidence of acute urinary obstruction. I was asked to see him due to some nausea, vomiting and hematemesis. Biochemically his hemoglobin is okay at 13.2. BUN/creatinine ratio is mildly elevated at 16-0.8. He is mildly thrombocytopenic a platelet count of 123. FORMERLY [facility], [facility]–1983 Medical History Abdominal aortic aneurysm (AAA) Anemia of unknown etiology Aneurysm, common iliac artery Atherosclerotic heart disease of [place] coronary artery without angina pectoris BPH (benign prostatic hyperplasia) BPH w urinary obs/LUTS Chronic back pain greater than 3 months duration Chronic respiratory failure with hypoxia COPD (chronic obstructive pulmonary disease) Diverticulosis Essential hypertension Gastroesophageal reflux disease Gout HLD (hyperlipidemia) Non-ischemic cardiomyopathy Premature ventricular contraction Sleep apnea Spinal stenosis Home Medications budesonide-formoterol HFA 160 mcg-4.5 mcg/actuation aerosol inhaler 2 puff inhalation BID SHORTNESS OF BREATH 12/20/14 [History Last Taken 02/23/23 06:00] Handicap placard #1 ea 07/30/22 [Rx Last Taken Unknown] ipratropium 0.5 mg-albuterol 3 mg (2.5 mg base)/3 mL nebulization soln 3 ml inhalation Q6H PRN SHORTNESSOF BREATH 08/31/22 [History Last Taken 02/23/23] tiotropium bromide 18 mcg capsule with inhalation device 18 mcg inhalation DAILY SHORTNES OF BREATH 08/31/22 [History Last Taken 02/23/23] allopurinol 300 mg tablet 300 mg PO DAILY GOUT #90 tabs 11/07/22 [Rx Last Taken 02/23/23 06:00] carvedilol 25 mg tablet 25 mg PO BID HEART HEALTH #180 tabs 11/07/22 [Rx Last Taken 02/23/23 06:00] ezetimibe 10 mg tablet 10 mg PO DAILY CHOLESTEROL #90 tabs 11/07/22 [Rx Last Taken 02/22/23 18:30] potassium gluconate 595 mg (99 mg) tablet 595 mg PO DAILY SUPPLEMENT #90 tabs 11/07/22 [Rx Last Taken 02/22/23 18:00] ascorbic acid (vitamin C) 1,000 mg capsule 1 g PO BID SUPPLEMENT 06/12/23 [History Last Taken Unknown] nitroglycerin 0.4 mg sublingual tablet 0.4 mg sublingual Q5M PRN CHEST PAIN #25 tabs 06/12/23 [Rx Last Taken Unknown] aspirin 81 mg tablet,delayed release (Adult Aspirin Regimen) 81 mg PO DAILY HEART HEALTH 08/13/23 [History Last Taken Unknown] furosemide 20 mg tablet 5 mg PO QODAY FLUID 08/13/23 [History Last Taken Unknown] Allergy/AdvReac Type Severity Reaction Status Date / Time Sftabwt-BNA-SkW Reductase Allergy Chest Verified 06/12/23 11:37 Inhibitor tightness [Cqpeqkm-Yot-Abq Reductase Inhibitor] Sulfa (Sulfonamide Allergy Swelling Verified 06/12/23 11:37 Antibiotics) venom-honey bee Allergy Anaphylaxis Verified 06/12/23 11:37 [bee venom (honey bee)] Corticosteroids AdvReac GROUCHY Verified 06/12/23 11:37 (Glucocorticoids) [steroids] Family History Sister Diabetes Mother Hypertension CAD (coronary artery disease) Father No problems noted. Other Asthma Breast cancer Heart disease Hyperlipemia Respiratory disease Surgical History History of cataract surgery History of colonoscopy (2009) History of laminectomy History of left heart catheterization (06/05/22) History of right and left heart catheterization (10/02/12) History of tonsillectomy History of umbilical hernia repair (~02/2023) S/P decompression of ulnar nerve at elbow Social History household members: spouse Smoking Status: Former smoker how long ago did patient quit smokin years ago alcohol intake: current alcohol intake frequency: holidays/special occasions only substance use type: does not use caffeine: No ROS Constitutional Constitutional: Denies fatigue, headache(s) or lethargy Eyes Eyes: Denies acute decrease in peripheral vision, blurry vision or change in vision ENT HEENT: Denies dizziness, dry mouth, epistaxis, headache(s), tinnitus or vertigo Cardiovascular Cardiovascular: Reports chest pain with activity and other Details: CP with exertion, no worse than previous, had cath for this ; Denies chest pain at rest, claudication, edema, irregular heart rhythm, lightheadedness, palpitations or pedal edema Respiratory/Chest Respiratory/Chest: Reports dyspnea on exertion and other Details: no worse is on O2 ; Denies cough, dyspnea, tachypnea or wheezing Gastrointestinal Gastrointestinal: Denies abdominal pain, bloating, coffee ground emesis, diarrhea, heartburn, hematemesis, hematochezia, melena or nausea Genitourinary Genitourinary: Denies hematuria Neurologic Neurologic: Reports other Details: occasional positional dizziness ; Denies abnormal gait, abnormal speech, memory loss, paresthesias or weakness Physical Exam Narrative General: Alert, Oriented x3, Cooperative, No apparent distress HEENT: Atraumatic, PERRLA, EOMI, Normocephalic Oral: Moist Mucosa Neck: Supple, No JVD Lungs: Diminished, Normal air movement, No rhonchi, No wheeze, No rales Cardiovascular: Regular rate, Regular Rhythm, Normal S1, Normal S2, No murmurs Abdomen: Soft, Non Tender, Non-Distended, No Hepato-splenomegaly Extremities: No edema, Capillary Refill Less than 3 Seconds Skin: No rashes, No breakdown Musculoskeletal: Left hip pain to palpation Neurological: Cranial nerves II-XII grossly intact, Motor Exam 5/5 strength throughout, Sensory exam intact to light touch and pain Psych/Mental Status: Normal Affect, Appropriate Lab / Micro Data 08/13/23 13:58 08/13/23 13:58 Labs: Laboratory Results - last 24 hr 08/13/23 19:45: Blood Type A POSITIVE, Antibody Screen NEGATIVE 08/14/23 06:06: APTT 33.8, PSA Screen 0.37, TSH 0.61 Micro: Microbiology 08/14/23 02:35 Vomitus Gastric Occult Blood - Final Occult Blood Positive Imagaing Radiology Impression Lower Extremity MRI 08/13/23 15:20 IMPRESSION: * Acute minimally impacted but otherwise nondisplaced subcapital fracture of the left femur. * Mild left obturator externus muscle strain. * Mild bilateral common hamstring tendinosis. * Diverticulosis coli. Electronically Signed: Mario Vera MD at 18:56 EST Reading Location ID and State: [address] [place] [address] Tel , Service support , Echocardiogram 08/13/23 20:22 Interpretation Summary Grossly normal LV systolic function. The estimated ejection fraction is 55 %. Mild (1+) tricuspid valve insufficiency. Contrast echo using Definity used No significant change from previous echocardiogram in 2017 The study was technically limited. The study was technically difficult. Contrast injection was performed. Ordering Physician: Mario Amor Referring Physician: Mary Arreola M.D. Performed By: Skip Watkins RCS Assessment & Plan Assessment/Plan (1) Closed fracture of left hip: QUALIFIERS: Encounter type: initial encounter Qualified Code(s): S72.002A - Fracture of unspecified part of neck of left femur, initial encounter for closed fracture (2) Fall: QUALIFIERS: Encounter type: initial encounter Qualified Code(s): W19.XXXA - Unspecified fall, initial encounter (3) BPPV (benign paroxysmal positional vertigo): QUALIFIERS: Laterality: unspecified laterality Qualified Code(s): H81.10 - Benign paroxysmal vertigo, unspecified ear (4) Acute urinary retention: PLAN: Plan 82-year-old gentleman with and acute subcapital fracture of the left hip after mechanical fall at home. He had a couple episodes of abdominal pain followed by nausea. There was concerned because he had some hematemesis. The differential diagnosis does include Lorena-Alanis tear, peptic ulcer disease, erosive esophagitis in the setting of aspirin therapy and vitamin C. He is on PPI therapy. It he should undergo an upper endoscopy to evaluate his upper GI tract. He was explained alternatives, risk, benefits include not withstanding bleeding, infection, sepsis, perforation, need for emergent urgent . He will have an ASA of 3. Charges/Coding Visit Charges Inpatient E&M: 66643 Init Hosp L3
--- NOTE | 2023-08-14 17:10 | PCM.OP.BLANK ---
Operative Report Date of Procedure: 08/14/23 Preoperative diagnosis: Left hip subcapital femoral neck fracture [valgus impacted nondisplaced] Postoperative diagnosis: Same Procedure: Percutaneous screw fixation of left hip Anesthesia: General EBL: None Complications: None Implant :Synthes 7.3mm cannulated hip screws x3 Condition: Stable to PACU Indication for procedure: 82-year-old male patient who had ground-level fall injuring his left hip sustained nondisplaced subcapital left hip fracture not seen on initial radiographs but visualized on MRI in the ER. orthopedic's was consulted for fracture we did discuss cannulated screw fixation of the hip. Risk benefits and alternatives were reviewed including risk of bleeding infection nerve, artery, bone, tissue damage, blood clot need for further surgery and continued pain, AVN. Procedure: Patient was met in the preoperative holding area once again the operative extremity was identified by both patient and physician was marked. Patient was met by anesthesia and brought back to the operating room on a wheeled cart and transfered the operating table in supine position anesthesia was started. Patient was then positioned on fracture table all bony prominences were well-padded. Fluoroscopy unit was brought in to ensure adequate AP and lateral projections could be achieved. Patient was then prepped and draped in usual sterile fashion a timeout was called to the proper patient procedure and extremity are being contemplated. Fluoroscopy was once again brought in and with a metallic instrument the starting point was marked on the AP and lateral projections on the skin then made a stab incision through the skin and the pin was inserted to the appropriate starting point was advanced into the femoral head this was checked in both AP and lateral projections for position. We then used the parallel drill guide to place anterior and posterior screws superior to the initial screw creating an inverted triangle pattern. these were checked in both AP and lateral projections and measured self-tapping screws were then placed over the pins. Final AP and lateral projections were saved to the PACS system. Screw heads were checked to make sure there is no iliotibial band entrapment the wound was thoroughly irrigated subcutaneous tissue was closed with 0 Vicryl 2-0 Vicryl followed by keila in the skin standard dressing applied. Patient will be toe-touch weightbearing on the operative side until further notice and x-ray follow-up.
[2023-08-14] MEDS: Calcium Carbonate 500 MG Tablet PO (20:27)
[2023-08-14] MEDS: Ascorbic Acid 500 MG Tablet 1000 MG PO (20:27)
[2023-08-14] MEDS: Nystatin Powder 15gm Bottle 1 APPLIC TOPICAL (20:27)
[2023-08-14] MEDS: Cefazolin 1 GM/50 ML BAG IV (23:21)
[2023-08-15] VITALS (7 sets, daily range): BP systolic 113–119; BP diastolic 62–68; PULSE 86–103; RESP 16–20; TEMP 36.6–37.2; O2SAT 89–99
[2023-08-15 06:02] LABS: Absolute Lymphocyte Count 1.35 X10^3/uL (0.83-4.51); Absolute Neutrophil Count 4.7 X10^3/uL (2.0-7.7); Basophil# 0.02 X10^3/uL; Basophil% 0.3 % (0-1); Eosinophil# 0.16 X10^3/uL; Eosinophils% 2.2 % (0-5); Hematocrit 37.9 % (40-54); Hemoglobin 11.9 g/dL (13.0-16.5); Lymphocyte # 1.35 X10^3/ul (0.83-4.51); Lymphocyte % 18.8 % (19-41); Mean Corp Hgb Conc 31.4 g/dL (32-36); Mean Corpuscular Hgb 30.5 pg (27.0-32.0); Mean Corpuscular Volume 97.2 fL (80-94); Mean Platelet Vol. 10.1 fl (6.2-12.0); Monocyte# 0.96 X10^3/uL; Monocyte% 13.4 % (0-10); NRBC Flagged by Analyzer 0 % (0-5); Neutrophil # 4.67 X10^3/uL (2.7-7.7); POSITIVE COUNT YES; Platelet Count 96 K/mm3 (150-450); RBC Distribution Width CV 15.3 % (11.6-14.6); White Blood Count 7.2 K/mm3 (4.4-11.0)
[2023-08-15 06:08] LABS: Differential Indicated SCAN CRITERIA MET
--- NOTE | 2023-08-15 06:21 | NURSING ---
Pt verbally abusive to nursing. Pt yelling at nurses about not having water. Pt is requesting to be transferred to another hospital because we are not giving him water.
[2023-08-15 06:25] LABS: Anion Gap 4 (5-15); BUN 19 mg/dL (7-18); BUN/Creat Ratio 26.8 RATIO (10-20); Calcium,Total 7.9 mg/dL (8.5-10.1); Chloride 113 mmol/L (98-107); Creatinine, Serum 0.71 mg/dL (0.70-1.30); EST Glomerular Filtration Rate 113 mL/min (>60); Est Glom Filt Rate - Afr Amer 137 mL/min (>60); Estimated Creatinine Clearance 57.93 ml/min; Glucose 117 mg/dL (74-106); Potassium 3.8 mmol/L (3.5-5.1); Sodium Level 144 mmol/L (136-145)
[2023-08-15 06:31] LABS: Differential Comment SCANNED; Platelet Estimate SLT DEC (ADEQ)
--- NOTE | 2023-08-15 06:31 | NURSING ---
pt very agitated with not being able to eat or drink pt educated multiple times on EGD later today and importance of being NPO pt yelling and refusing the procedure at this time, despite multiple attempts of emotional support throughout the night Dr Blake willis
[2023-08-15] MEDS: Carvedilol 25 MG Tablet PO ×2 (08:45→16:47)
[2023-08-15] MEDS: Ezetimibe 10 MG Tablet PO (08:45)
[2023-08-15] MEDS: Allopurinol 300 MG Tablet PO (08:45)
[2023-08-15] MEDS: Aspirin E.C. 81 MG Tablet PO (08:45)
[2023-08-15] MEDS: Ascorbic Acid 500 MG Tablet 1000 MG PO ×2 (08:45→21:33)
[2023-08-15] MEDS: Cholecalciferol (VIT D3) 25 MCG TABLET (1,000 UNITS) PO (08:51)
[2023-08-15] MEDS: APIXABAN 2.5 MG TABLET (WCH) PO ×2 (08:51→21:33)
[2023-08-15] MEDS: Nystatin Powder 15gm Bottle 1 APPLIC TOPICAL (08:52)
[2023-08-15] MEDS: Cefazolin 1 GM/50 ML BAG IV ×2 (08:52→16:47)
[2023-08-15] MEDS: 0.9% Saline Lock 10 ML Syringe IV ×2 (08:52→16:47)
--- NOTE | 2023-08-15 10:18 | PN.HOSP_ITS ---
Subjective Subjective Doing well, no significant postoperative pain Objective Data Objective Data Vital Signs: Vital Signs Temp Pulse Resp BP Pulse Ox O2 Del Method O2 Flow Rate 98.2 F 103 H 16 119/68 95 High Flow 5 08/15/23 08:30 08/15/23 08:30 08/15/23 08:30 08/15/23 08:30 08/15/23 08:30 08/15/23 08:30 08/15/23 08:30 Oxygen Flow Rate (L/min) 5 Oxygen Delivery Method High Flow Weight: 220 lb 7.396 oz Body Mass Index (BMI) 32.5 Intake & Output: Intake and Output for Last 24 Hours 08/14/23 08/15/23 08/16/23 03:59 03:59 03:59 Intake Total 1755.83 / 1755.83 2673.5 / 2673.5 134.75 / 134.75 Output Total 1320 / 1320 300 / 300 Balance 1755.83 / 1755.83 1353.5 / 1353.5 -165.25 / -165.25 Lab / Micro Data 08/15/23 05:25 08/15/23 05:25 Labs: Laboratory Results - last 24 hr 08/15/23 05:25: WBC 7.2, RBC 3.90 L, Hgb 11.9 L, Hct 37.9 L, MCV 97.2 H, MCH 30.5, MCHC 31.4 L, RDW Std Deviation 55.0 H, RDW Coeff of Pito 15.3 H, Plt Count 96 L, MPV 10.1, Immature Gran % (Auto) 0.300, Neut % (Auto) 65.0, Lymph % (Auto) 18.8 L, [place] % (Auto) 13.4 H, Eos % (Auto) 2.2, Baso % (Auto) 0.3, Absolute Neuts (auto) 4.7, Absolute Lymphs (auto) 1.35, Nucleated RBC % 0, Differential Comment SCANNED, Platelet Estimate SLT DEC, Sodium 144, Potassium 3.8, Chloride 113 H, Carbon Dioxide 27.0, Anion Gap 4 L, BUN 19 H, Creatinine 0.71, Estim Creat Clear Calc 57.93, Est GFR (MDRD) Af Amer 137, Est GFR (MDRD) Non-Af 113, BUN/Creatinine Ratio 26.8 H, Glucose 117 H, Calcium 7.9 L Micro: Microbiology 08/14/23 02:35 Vomitus Gastric Occult Blood - Final Occult Blood Positive Radiography Diagnostic Testing: Radiology Impression Echocardiogram 08/13/23 20:22 Interpretation Summary Grossly normal LV systolic function. The estimated ejection fraction is 55 %. Mild (1+) tricuspid valve insufficiency. Contrast echo using Definity used No significant change from previous echocardiogram in 2017 The study was technically limited. The study was technically difficult. Contrast injection was performed. Ordering Physician: Mario Amor Referring Physician: Mary Arreola M.D. Performed By: Skip Watkins RCS Hip/Pelvis X-Ray 08/14/23 16:18 IMPRESSION: Intraoperative fluoroscopy. Electronically Signed: Praveen Lopez MD at 21:01 EST , Physical Exam Narrative General: Alert, Oriented x3, Cooperative, No apparent distress HEENT: Atraumatic, PERRLA, EOMI, Normocephalic Oral: Moist Mucosa Neck: Supple, No JVD Lungs: Diminished, Normal air movement, No rhonchi, No wheeze, No rales Cardiovascular: Regular rate, Regular Rhythm, Normal S1, Normal S2, No murmurs Abdomen: Soft, Non Tender, Non-Distended, No Hepato-splenomegaly Extremities: No edema, Capillary Refill Less than 3 Seconds Skin: No rashes, No breakdown Musculoskeletal: Left hip pain to palpation Neurological: Cranial nerves II-XII grossly intact, Motor Exam 5/5 strength throughout, Sensory exam intact to light touch and pain Psych/Mental Status: Normal Affect, Appropriate Assessment & Plan Assessment/Plan (1) Closed fracture of left hip: QUALIFIERS: Encounter type: initial encounter Qualified Code(s): S72.002A - Fracture of unspecified part of neck of left femur, initial encounter for closed fracture (2) Fall: QUALIFIERS: Encounter type: initial encounter Qualified Code(s): W19.XXXA - Unspecified fall, initial encounter (3) BPPV (benign paroxysmal positional vertigo): QUALIFIERS: Laterality: unspecified laterality Qualified Code(s): H81.10 - Benign paroxysmal vertigo, unspecified ear (4) Acute urinary retention: PLAN: Plan 1. Acute subcapital fracture of left hip after mechanical fall status post repair 08/14/2023 ? Continue with pain management ? PT/OT ? He was considered low risk by cardiology after evaluation and echo can proceed with surgery ? Consult case management for discharge planning 2. CAD/HTN/HLD ? Blood pressure stable ? Can resume his home blood pressure medications ? We will monitor make adjustments as necessary 3. GERD ? Stable ? Continue with Protonix ? 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 Hemoglobin is stable and is consistent with IV fluids and postoperative drop, he went from 13.1 on admission to 11.9. Will recheck hemoglobin in the morning as he is on Eliquis for a postsurgical DVT prophylaxis 4. BPH ? Continue with Lee, has history of urinary retention ? After surgery may need to be started on Flomax 5. Chronic gout ? Stable ? Continue with allopurinol DVT: Eliquis Charges/Coding Visit Charges Inpatient E&M: 26357 Subs Hosp L2
[2023-08-15] MEDS: Pantoprazole Sodium 40 MG in 0.9% Normal Saline (100mL MB+) 100 ML 330 MG IV (10:33)
--- NOTE | 2023-08-15 12:11 | CASEMGMT ---
Social Work SW met with pt and introduced self and role of SW. Discharge plan discussed and pt feels he will need short term SNF prior to returning home. Pt states that he is the primary caregiver for his Gemma who has dementia. Gemma's son Arnold is currently providing care for Gemma while pt is hospitalized. Pt requesting a facility that can admit both he and his . SW explained that insurance will cover cost of pt's stay but will not cover the cost of his 's stay. Pt understanding. A list of SNF providers including quality and resource use data and consistent with the patient?s preferred geographic region, medical needs, and insurance network were provided from the [employer] Guide. Pt preferred providers are 1. [facility] 2. [facility]. [facility] 4. [facility]. Pt's step son Arnold Rebolledo called in and requested to speak with the SW. Pt notified and agreeable for SW to speak with Arnold. Phone call to Arnold who states he will be taking pt's to his home and providing 24 hour care. SW updated Arnold that pt has chosen a facility and is requesting placement for . Arnold confirms that he is the financial POA and if pt would like to go to facility with him, pts could financially afford this. Arnold notified that he would have to work with the facility to arranged for admission to SNF from home and Arnold is understanding of this. Referrals to be made at preferred SNFs for pt and inquiries made regarding placement options and cost for . LUCINA Lucio
--- NOTE | 2023-08-15 12:34 | CASEMGMT ---
Discharge Planning SNF referral sent to [facility] of [facility], [facility], and [facility] via [facility]. Celine Zeng, Discharge Planning Asst.
--- NOTE | 2023-08-15 12:54 | PN.ORTHO_ITS ---
Subjective Subjective Seen and examined. Pain controlled. Sitting up in a chair. Doing well. No complaints. Objective Data Objective Data Vital Signs: Vital Signs Temp Pulse Resp BP Pulse Ox O2 Del Method O2 Flow Rate 98.2 F 103 H 16 119/68 95 High Flow 5 08/15/23 08:30 08/15/23 08:30 08/15/23 08:30 08/15/23 08:30 08/15/23 08:30 08/15/23 08:30 08/15/23 08:30 Oxygen Flow Rate (L/min) 5 Oxygen Delivery Method High Flow Weight: 220 lb 7.396 oz Body Mass Index (BMI) 32.5 Intake & Output: Intake and Output for Last 24 Hours 08/13/23 08/14/23 08/15/23 23:59 23:59 23:59 Intake Total 1000 / 1000 3288.33 / 3288.33 435.75 / 435.75 Output Total 1320 / 1320 300 / 300 Balance 1000 / 1000 1968.33 / 1968.33 135.75 / 135.75 Lab / Micro Data 08/15/23 05:25 08/15/23 05:25 Labs: Laboratory Results - last 24 hr 08/15/23 05:25: WBC 7.2, RBC 3.90 L, Hgb 11.9 L, Hct 37.9 L, MCV 97.2 H, MCH 30.5, MCHC 31.4 L, RDW Std Deviation 55.0 H, RDW Coeff of Pito 15.3 H, Plt Count 96 L, MPV 10.1, Immature Gran % (Auto) 0.300, Neut % (Auto) 65.0, Lymph % (Auto) 18.8 L, [place] % (Auto) 13.4 H, Eos % (Auto) 2.2, Baso % (Auto) 0.3, Absolute Neuts (auto) 4.7, Absolute Lymphs (auto) 1.35, Nucleated RBC % 0, Differential Comment SCANNED, Platelet Estimate SLT DEC, Sodium 144, Potassium 3.8, Chloride 113 H, Carbon Dioxide 27.0, Anion Gap 4 L, BUN 19 H, Creatinine 0.71, Estim Creat Clear Calc 57.93, Est GFR (MDRD) Af Amer 137, Est GFR (MDRD) Non-Af 113, BUN/Creatinine Ratio 26.8 H, Glucose 117 H, Calcium 7.9 L Micro: Microbiology 08/14/23 02:35 Vomitus Gastric Occult Blood - Final Occult Blood Positive Radiography Diagnostic Testing: Radiology Impression Hip/Pelvis X-Ray 08/14/23 16:18 IMPRESSION: Intraoperative fluoroscopy. Electronically Signed: Praveen Lopez MD at 21:01 EST Reading Location ID and State: [address] [place] [address] , Service support , Physical Exam Const alert, oriented x3 and no apparent distress General Appearance: cooperative Extremity Extremity Narrative: Left hip dressing clean dry and intact compartments soft neurovascular intact left lower extremity Assessment & Plan Assessment/Plan (1) Fracture of femoral neck, left: QUALIFIERS: Encounter type: initial encounter Fracture type: c losed Qualified Code(s): S72.002A - Fracture of unspecified part of neck of left femur, initial encounter for closed fracture PLAN: Plan Postop day #1 percutaneous screw fixation of left hip. PT OT 50% weightbearing left lower extremity 6 weeks postop Patient would likely benefit from rehab TCU Okay to start Eliquis from orthopedic standpoint may hold from medical standpoint if needed, typical 3 weeks of anticoagulation postop Oxycodone 5 to 10 mg every 4 hours Follow-up in the office 2 weeks if at an outside facility or home if in TCU or rehab I can see him there Outpatient therapy upon discharge. Dressing should be left on for 5 days postop then removed prior to for shower and washed daily with antibacterial soap and warm water and replace with dry dressing daily at this point until there is no drainage for 2 consecutive days then may leave open to air
--- NOTE | 2023-08-15 16:54 | CASEMGMT ---
Social Work [facility] is able to accept pt and would also be able to accept pt's . JILLIAN met with pt and explained this and that SW can assist pt in discharging to [facility] but that SW is unable to assist pt's in admission to the SNF. Pt agreeable for conference call with pt's step son Arnold. SW explained above and Arnold and Pt feel pt and should both go to [facility]. SW updated of private pay cost and need to pay 30 days up front. Arnold and Pt were agreeable to this. IJLLIAN will reach out to [facility] and request that precert pt be started for pt and that [facility] reach out to Arnold to work on admission for pt's . Phone call to [facility]. Admissions is gone for the day. JILLIAN will call back tomorrow. LUCINA Lucio
[2023-08-15] MEDS: Budesonide Respules 0.5 MG/2 ML AMPUL.NEB. INHALATION (20:04)
[2023-08-15] MEDS: Ipratropium 0.5 MG/2.5 ML SOLUTION INHALATION (20:04)
[2023-08-15] MEDS: Miconazole Nitrate 43 GM Bottle 1 APPLIC TOPICAL (21:33)
[2023-08-16] VITALS (8 sets, daily range): BP systolic 117–142; BP diastolic 64–75; PULSE 82–100; RESP 17–24; TEMP 36.3–36.8; O2SAT 90–96
[2023-08-16 05:43] LABS: Absolute Lymphocyte Count 1.49 X10^3/uL (0.83-4.51); Absolute Neutrophil Count 5.1 X10^3/uL (2.0-7.7); Basophil# 0.04 X10^3/uL; Basophil% 0.5 % (0-1); Eosinophil# 0.24 X10^3/uL; Eosinophils% 3.1 % (0-5); Hematocrit 39.2 % (40-54); Hemoglobin 12.3 g/dL (13.0-16.5); Lymphocyte # 1.49 X10^3/ul (0.83-4.51); Lymphocyte % 19.2 % (19-41); Mean Corp Hgb Conc 31.4 g/dL (32-36); Mean Corpuscular Hgb 30.4 pg (27.0-32.0); Mean Platelet Vol. 10.5 fl (6.2-12.0); Monocyte# 0.83 X10^3/uL; Monocyte% 10.7 % (0-10); NRBC Flagged by Analyzer 0 % (0-5); Neutrophil # 5.13 X10^3/uL (2.7-7.7); Platelet Count 103 K/mm3 (150-450); RBC Distribution Width CV 14.9 % (11.6-14.6); RBC Distribution Width SD 53.4 fl (35.1-43.9); Red Blood Count 4.04 M/mm3 (4.6-6.2); White Blood Count 7.8 K/mm3 (4.4-11.0)
[2023-08-16 06:07] LABS: Anion Gap 6 (5-15); BUN 16 mg/dL (7-18); BUN/Creat Ratio 24.5 RATIO (10-20); Calcium,Total 8.4 mg/dL (8.5-10.1); Chloride 111 mmol/L (98-107); Creatinine, Serum 0.65 mg/dL (0.70-1.30); EST Glomerular Filtration Rate 124 mL/min (>60); Est Glom Filt Rate - Afr Amer 151 mL/min (>60); Estimated Creatinine Clearance 57.93 ml/min; Glucose 106 mg/dL (74-106); Potassium 3.9 mmol/L (3.5-5.1); Sodium Level 141 mmol/L (136-145)
[2023-08-16] MEDS: Magnesium Hydroxide 30 ML UDC PO (06:39)
[2023-08-16] MEDS: Ipratropium 0.5 MG/2.5 ML SOLUTION INHALATION ×3 (07:32→19:42)
[2023-08-16] MEDS: Budesonide Respules 0.5 MG/2 ML AMPUL.NEB. INHALATION ×2 (07:32→19:42)
[2023-08-16] MEDS: Ascorbic Acid 500 MG Tablet 1000 MG PO ×2 (07:44→20:23)
[2023-08-16] MEDS: Carvedilol 25 MG Tablet PO ×2 (07:45→16:39)
[2023-08-16] MEDS: Miconazole Nitrate 43 GM Bottle 1 APPLIC TOPICAL ×2 (07:45→20:23)
[2023-08-16] MEDS: APIXABAN 2.5 MG TABLET (WCH) PO ×2 (07:45→20:23)
[2023-08-16] MEDS: Ezetimibe 10 MG Tablet PO (07:45)
[2023-08-16] MEDS: Allopurinol 300 MG Tablet PO (07:45)
[2023-08-16] MEDS: Aspirin E.C. 81 MG Tablet PO (07:45)
[2023-08-16] MEDS: Cholecalciferol (VIT D3) 25 MCG TABLET (1,000 UNITS) PO (07:45)
--- NOTE | 2023-08-16 08:57 | CASEMGMT ---
Addendum entered by Ava Hayes 08/16/23 11:53: Return call from Mica at [facility] (phone [phone], fax [phone]). Precert to be started at this time. Mica will reach out to pt's son Arnold to discuss admission for pt. LUCINA Agee Original Note: Social Work Phone call placed to [facility] and JILLIAN requested precert be started at this time for pt as pt is ready for discharge. JILLIAN also explained situation with pt's Gemma and requested [facility] contact pt's stepson Arnold Amaury to set up admission for Gemma. Plan: [facility], pending precert LUCINA Lucio
[2023-08-16] MEDS: Pantoprazole Sodium 40 MG in 0.9% Normal Saline (100mL MB+) 100 ML 330 MG IV (10:27)
[2023-08-16] MEDS: 0.9% Saline Lock 10 ML Syringe IV (10:27)
--- NOTE | 2023-08-16 12:41 | PN.HOSP_ITS ---
Subjective Subjective Doing well, hemoglobin up to 12.3 despite being on Eliquis. He maintains that he did not have any significant bloody vomitus Objective Data Objective Data Vital Signs: Vital Signs Temp Pulse Resp BP Pulse Ox O2 Del Method O2 Flow Rate 97.3 F L 90 17 124/73 H 91 Nasal Cannula 2 08/16/23 07:41 08/16/23 07:41 08/16/23 07:41 08/16/23 07:41 08/16/23 08:21 08/16/23 08:30 08/16/23 08:30 Oxygen Flow Rate (L/min) 2 Oxygen Delivery Method Nasal Cannula Weight: 220 lb 7.396 oz Body Mass Index (BMI) 32.5 Intake & Output: Intake and Output for Last 24 Hours 08/15/23 08/16/23 08/17/23 03:59 03:59 03:59 Intake Total 2673.5 / 2673.5 344.75 / 344.75 110 / 110 Output Total 1320 / 1320 1150 / 1150 250 / 250 Balance 1353.5 / 1353.5 -805.25 / -805.25 -140 / -140 Lab / Micro Data 08/16/23 04:30 08/16/23 04:30 Labs: Laboratory Results - last 24 hr 08/16/23 04:30: WBC 7.8, RBC 4.04 L, Hgb 12.3 L, Hct 39.2 L, MCV 97.0 H, MCH 30.4, MCHC 31.4 L, RDW Std Deviation 53.4 H, RDW Coeff of Pito 14.9 H, Plt Count 103 L, MPV 10.5, Immature Gran % (Auto) 0.500, Neut % (Auto) 66.0, Lymph % (Auto) 19.2, [place] % (Auto) 10.7 H, Eos % (Auto) 3.1, Baso % (Auto) 0.5, Absolute Neuts (auto) 5.1, Absolute Lymphs (auto) 1.49, Nucleated RBC % 0, Sodium 141, Potassium 3.9, Chloride 111 H, Carbon Dioxide 24.0, Anion Gap 6, BUN 16, Creatinine 0.65 L, Estim Creat Clear Calc 57.93, Est GFR (MDRD) Af Amer 151, Est GFR (MDRD) Non-Af 124, BUN/Creatinine Ratio 24.5 H, Glucose 106, Calcium 8.4 L Micro: Microbiology 08/14/23 02:35 Vomitus Gastric Occult Blood - Final Occult Blood Positive Physical Exam Narrative General: Alert, Oriented x3, Cooperative, No apparent distress HEENT: Atraumatic, PERRLA, EOMI, Normocephalic Oral: Moist Mucosa Neck: Supple, No JVD Lungs: Diminished, Normal air movement, No rhonchi, No wheeze, No rales Cardiovascular: Regular rate, Regular Rhythm, Normal S1, Normal S2, No murmurs Abdomen: Soft, Non Tender, Non-Distended, No Hepato-splenomegaly Extremities: No edema, Capillary Refill Less than 3 Seconds Skin: No rashes, No breakdown Musculoskeletal: Left hip pain to palpation Neurological: Cranial nerves II-XII grossly intact, Motor Exam 5/5 strength throughout, Sensory exam intact to light touch and pain Psych/Mental Status: Normal Affect, Appropriate Assessment & Plan Assessment/Plan (1) Closed fracture of left hip: QUALIFIERS: Encounter type: initial encounter Qualified Code(s): S72.002A - Fracture of unspecified part of neck of left femur, initial encounter for closed fracture (2) Fall: QUALIFIERS: Encounter type: initial encounter Qualified Code(s): W19.XXXA - Unspecified fall, initial encounter (3) BPPV (benign paroxysmal positional vertigo): QUALIFIERS: Laterality: unspecified laterality Qualified Code(s): H81.10 - Benign paroxysmal vertigo, unspecified ear (4) Acute urinary retention: PLAN: Plan 1. Acute subcapital fracture of left hip after mechanical fall status post repair 08/14/2023 ? Continue with pain management ? PT/OT ? He was considered low risk by cardiology after evaluation and echo can proceed with surgery ? Consult case management for discharge planning to SNF 2. CAD/HTN/HLD ? Blood pressure stable ? Can resume his home blood pressure medications ? We will monitor make adjustments as necessary 3. GERD ? Stable ? Continue with Protonix ? Gastroenterology was consulted for possible upper GI bleed as engineer chief 2 nights ago felt that he had a massive bloody emesis he states that he had a bloody nose and coughed up some sputum and that everybody overreacted so he refused an EGD today. Hemoglobin is stable and is consistent with IV fluids and postoperative drop, he went from 13.1 on admission to 11.9. Recheck hemoglobin is 12.3 unlikely to have any significant GI bleeding 4. BPH ? Continue with Lee, has history of urinary retention ? After surgery may need to be started on Flomax 5. Chronic gout ? Stable ? Continue with allopurinol DVT: Eliquis Charges/Coding Visit Charges Inpatient E&M: 38024 Subs Hosp L2
--- NOTE | 2023-08-16 16:26 | CASEMGMT ---
Discharge Planning Weekend phone/fax received from [facility]. Green sheet placed on chart. Celine Zeng, Discharge Planning Asst.
--- NOTE | 2023-08-16 17:15 | CASEMGMT ---
Social Work Phone call received at this time and precert has been obtained. Physician notified and pt to be discharged tomorrow. SW updated pt's son Arnold. Nursing aware. Plan: [facility], skilled level of care when medically ready LUCINA Lucio
[2023-08-16] MEDS: QUEtiapine 25 MG Tablet PO (20:23)
[2023-08-16] MEDS: Tamsulosin HCl 0.4 MG Capsule PO (22:43)
[2023-08-17] MEDS: cycloBENZAPRine HCl 10 MG Tablet 5 MG PO (02:15)
[2023-08-17] MEDS: Magnesium Hydroxide 30 ML UDC PO (02:16)
[2023-08-17 02:18] VITALS: BP 127/78; PULSE 87; RESP 20; TEMP 36.6; O2SAT 92
[2023-08-17] MEDS: Acetaminophen 325 MG Tablet 650 MG PO (06:28)
[2023-08-17] MEDS: oxyCODONE 5 MG Tablet PO (06:28)
[2023-08-17] MEDS: Ipratropium 0.5 MG/2.5 ML SOLUTION INHALATION ×2 (06:57→13:27)
[2023-08-17] MEDS: Budesonide Respules 0.5 MG/2 ML AMPUL.NEB. INHALATION (06:57)
[2023-08-17 06:58] VITALS: PULSE 82; RESP 18; O2SAT 94
--- NOTE | 2023-08-17 09:50 | PCM.TXEXTCAR ---
Diet Diet Order/Speech Therapy: 08/15/23 08:50 Diet: Cardiac - Heart Healthy Is pt able to select menu?: Yes Routine Orders/Code Status Routine Lab Work: CBC and BMP Wound(s) LEFT HIP: Wound Type: Surgical Incision Therapies Physical Therapy: Eval and Treat Occupational Therapy: Eval and Treat Problem/Diagnosis (1) Closed fracture of left hip: Status: Acute Code(s): S72.002A - Fracture of unspecified part of neck of left femur, initial encounter for closed fracture (2) Fall: Status: Acute Code(s): W19.XXXA - Unspecified fall, initial encounter (3) BPPV (benign paroxysmal positional vertigo): Status: Acute Code(s): H81.10 - Benign paroxysmal vertigo, unspecified ear (4) Acute urinary retention: Status: Acute Code(s): R33.8 - Other retention of urine Plan 1. Acute subcapital fracture of left hip after mechanical fall status post repair 08/14/2023 ? Continue with pain management ? PT/OT ? He was considered low risk by cardiology after evaluation and echo can proceed with surgery ? Consult case management for discharge planning to SNF 2. CAD/HTN/HLD ? Blood pressure stable ? Can resume his home blood pressure medications ? We will monitor make adjustments as necessary 3. GERD ? Stable ? Continue with Protonix ? 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 Hemoglobin is stable and is consistent with IV fluids and postoperative drop, he went from 13.1 on admission to 11.9. Recheck hemoglobin is 12.3 unlikely to have any significant GI bleeding 4. BPH ? Continue with Lee, has history of urinary retention ? After surgery may need to be started on Flomax 5. Chronic gout ? Stable ? Continue with allopurinol DVT: Eliquis Allergies/Procedures Done in Hospital Allergies Kkpjdlo-JIW-RtT Reductase Inhibitor [Ssdvywn-Rcm-Ira Reductase Inhibitor] Allergy (Verified 06/12/23 11:37) Chest tightness Sulfa (Sulfonamide Antibiotics) Allergy (Verified 06/12/23 11:37) Swelling venom-honey bee [bee venom (honey bee)] Allergy (Verified 06/12/23 11:37) Anaphylaxis Corticosteroids (Glucocorticoids) [steroids] Adverse Reaction (Verified 06/12/23 11:37) GROUCHY Procedures: - (Percutaneous screw fixation of left hip) Type of Care/Length of Stay Estimated LOS: Convalescent Care Less Than 30 days Type of Care Needed: Skilled Rehab Potential: Good Prognosis: Good Additional Orders/Day of Discharge Day of Discharge: 08/17/23 Discharge Plan Admission Admit Date/Time: 08/13/23 20:15 Attending Provider: Chacho Gardiner Primary Care Provider: Mary Arreola Consulting Providers: Ramy Ortega; Mario Amor; Saurabh Lyles Discharge Orders/Prescriptions Prescriptions: New oxycodone 5 mg Tablet 5 mg PO Q4H PRN PRN (Reason: Pain Score 4-5) 3 Days Qty: 10 0RF Eliquis 5 mg Tablet 2.5 mg PO BID 21 Days Qty: 42 0RF pantoprazole [Protonix] 40 mg tablet,delayed release (DR/EC) 40 mg PO DAILY Qty: 30 0RF Continued ipratropium-albuterol 0.5 mg-3 mg(2.5 mg base)/3 mL solution for nebulization 3 ml INHALATION Q6H PRN (Reason: SHORTNESSOF BREATH ) ascorbic acid (vitamin C) 1,000 mg capsule 1 g PO BID nitroglycerin 0.4 mg tablet, sublingual 0.4 mg SUBLINGUAL Q5M PRN (Reason: CHEST PAIN ) Qty: 25 3RF budesonide-formoterol 1 INHALER inhaler 2 puff INHALATION BID tiotropium bromide 18 mcg capsule, w/inhalation device 18 mcg inhalation DAILY furosemide 20 mg tablet 5 mg PO QODAY aspirin [Adult Aspirin Regimen] 81 mg tablet,delayed release (DR/EC) 81 mg PO DAILY (DME) Handicap placard See Rx Instructions .Route .MEDSUPPLY Qty: 1 0RF Rx Instructions: 5 year rx 07/30/22-07/30/23 allopurinol 300 mg tablet 300 mg PO DAILY Qty: 90 3RF carvedilol 25 mg tablet 25 mg PO BID Qty: 180 3RF ezetimibe 10 mg tablet 10 mg PO DAILY Qty: 90 3RF potassium gluconate 595 mg (99 mg) tablet 595 mg PO DAILY Qty: 90 3RF Referrals / Follow Up: Ramy Ortega DO [Med Staff - Active Staff] - Within 2 Weeks Mary Arreola MD [Primary Care Provider] - Disposition Disposition (needs filled in before D/C Order can be placed): [facility] (1) Closed fracture of left hip Qualifiers: Encounter type: initial encounter Qualified Code(s): S72.002A - Fracture of unspecified part of neck of left femur, initial encounter for closed fracture (2) Fall Qualifiers: Encounter type: initial encounter Qualified Code(s): W19.XXXA - Unspecified fall, initial encounter (3) BPPV (benign paroxysmal positional vertigo) Qualifiers: Laterality: unspecified laterality Qualified Code(s): H81.10 - Benign paroxysmal vertigo, unspecified ear
[2023-08-17 10:05] VITALS: BP 102/70; PULSE 72; RESP 18; TEMP 36.3; O2SAT 95
[2023-08-17] MEDS: Pantoprazole Sodium 40 MG in 0.9% Normal Saline (100mL MB+) 100 ML 330 MG IV (10:10)
[2023-08-17] MEDS: Cholecalciferol (VIT D3) 25 MCG TABLET (1,000 UNITS) PO (10:11)
[2023-08-17] MEDS: Aspirin E.C. 81 MG Tablet PO (10:11)
[2023-08-17] MEDS: Miconazole Nitrate 43 GM Bottle 1 APPLIC TOPICAL (10:11)
[2023-08-17] MEDS: Carvedilol 25 MG Tablet PO (10:11)
[2023-08-17] MEDS: APIXABAN 2.5 MG TABLET (WCH) PO (10:11)
[2023-08-17] MEDS: Allopurinol 300 MG Tablet PO (10:11)
[2023-08-17] MEDS: Ascorbic Acid 500 MG Tablet 1000 MG PO (10:11)
[2023-08-17] MEDS: Ezetimibe 10 MG Tablet PO (10:11)
--- NOTE | 2023-08-17 11:12 | NURSING ---
aware per physicians ambulation pickup 13:00, pt's step son Arnold called and updated.
--- NOTE | 2023-08-17 11:36 | NURSING ---
[facility] at [phone] to Sandra. Informed her that pt will be picked up at 13:00.
[2023-08-17 12:52] VITALS: BP 100/60; PULSE 72; RESP 18; TEMP 36.4; O2SAT 97
[2023-08-17 13:27] VITALS: PULSE 88; RESP 18
--- NOTE | 2023-08-17 13:45 | NURSING ---
Arnold nieto updated transport has arrived.
--- NOTE | 2023-08-17 15:05 | PCM.DC.SUM ---
Providers Date of Admission: 08/13/23 Primary Care Physician: Dr. Mary Arreola MD Consultations 08/13/23 20:22 Consult: Orthopedics Routine Consulting Provider: Ramy Ortega Reason for Consult: Subcapital fracture left hip after mechanical fall. EMERGENT Consult: No Notified: Yes Date Notified: 08/13/23 Time Notified: 20:22 Method of Notification: ED Physician Initiated 08/13/23 21:19 Consult: Cardiology Routine Consulting Provider: Saurabh Lyles Reason for Consult: History of coronary artery disease with OK and nonischemic cardiomyopathy EMERGENT Consult: No MD Notified: Yes Date Notified: 08/14/23 Time Notified: 07:36 Method of Notification: Text Method of Consult:: In-Person 08/14/23 02:30 Consult: Gastroenterology Routine Consulting Provider: [facility] Reason for Consult: possible peptic ulcer EMERGENT Consult: No Notified: Yes Date Notified: 08/14/23 Time Notified: 05:54 Method of Notification: Text Reason For Visit: fall, left hip facture Diagnosis Discharge Diagnosis (1) Closed fracture of left hip: Status: Acute Code(s): S72.002A - Fracture of unspecified part of neck of left femur, initial encounter for closed fracture Qualifiers: Encounter type: initial encounter Qualified Code(s): S72.002A - Fracture of unspecified part of neck of left femur, initial encounter for closed fracture (2) Fall: Status: Acute Code(s): W19.XXXA - Unspecified fall, initial encounter Qualifiers: Encounter type: initial encounter Qualified Code(s): W19.XXXA - Unspecified fall, initial encounter (3) BPPV (benign paroxysmal positional vertigo): Status: Acute Code(s): H81.10 - Benign paroxysmal vertigo, unspecified ear Qualifiers: Laterality: unspecified laterality Qualified Code(s): H81.10 - Benign paroxysmal vertigo, unspecified ear (4) Acute urinary retention: Status: Acute Code(s): R33.8 - Other retention of urine Medications at Discharge Home Medications budesonide-formoterol HFA 160 mcg-4.5 mcg/actuation aerosol inhaler 2 puff inhalation BID SHORTNESS OF BREATH 12/20/14 Handicap placard #1 ea 12/05/22 ipratropium 0.5 mg-albuterol 3 mg (2.5 mg base)/3 mL nebulization soln 3 ml inhalation Q6H PRN SHORTNESSOF BREATH 08/31/22 tiotropium bromide 18 mcg capsule with inhalation device 18 mcg inhalation DAILY SHORTNES OF BREATH 08/31/22 allopurinol 300 mg tablet 300 mg PO DAILY GOUT #90 tabs 11/07/22 carvedilol 25 mg tablet 25 mg PO BID HEART HEALTH #180 tabs 11/07/22 ezetimibe 10 mg tablet 10 mg PO DAILY CHOLESTEROL #90 tabs 11/07/22 potassium gluconate 595 mg (99 mg) tablet 595 mg PO DAILY SUPPLEMENT #90 tabs 11/07/22 ascorbic acid (vitamin C) 1,000 mg capsule 1 g PO BID SUPPLEMENT 06/12/23 nitroglycerin 0.4 mg sublingual tablet 0.4 mg sublingual Q5M PRN CHEST PAIN #25 tabs 06/12/23 aspirin 81 mg tablet,delayed release (Adult Aspirin Regimen) [address] [facility] 08/13/23 furosemide 20 mg tablet 5 mg PO QODAY FLUID 08/13/23 apixaban 5 mg tablet (Eliquis) 2.5 mg (1/2 x 5 mg) PO BID 21 days #42 tabs 08/17/23 oxycodone 5 mg tablet 5 mg PO Q4H PRN PRN Pain Score 4-5 3 days #10 tabs 08/17/23 pantoprazole 40 mg tablet,delayed release (Protonix) 40 mg PO DAILY #30 tabs 08/17/23 Hospital Course Operations - ( Percutaneous screw fixation of left hip) Procedures 2-D Echocardiogram Summary of Care Provided Minutes Spent on Discharge: 32 Hospital Course: Per HPI: MARIA INES MENENDEZ, is a 82 M with a past medical history of essential hypertension, hyperlipidemia; with intolerance to statins, obesity; with BMI of 37.5 this admission plus obstructive sleep apnea, history of tobacco abuse (quit smoking approximately 20 years ago); with subsequent COPD, chronic hypoxic respiratory failure on 2 L nasal cannula continuously, history of coronary artery disease; status post OK with most recent left heart catheterization in May 2022 followed by , history of nonischemic cardiomyopathy with cardiomegaly, history of abdominal aortic aneurysm, history of aneurysm of the common iliac artery, history of colonic diverticulosis, BPH, gout, GERD, spinal stenosis and osteoarthritis; with chronic back pain who presents to [facility] ER complaining of persistent left hip pain and inability to ambulate after fall. Mr. Menendez reports his symptoms began earlier on the morning of 08/13/2023 when he bent over in an effort to catch his cat when he stepped to the left side and subsequently lost his balance falling onto his left hip. He was then unable to get up and EMS had to be activated because he had persistent difficulty moving without severe pain with the patient on floor for total of approximately 45 minutes. He denies associated head trauma, loss of consciousness or other significant injury with his fall. He also denies recent illness, fever, chills, nausea, vomiting, diarrhea or constipation but he does admit to increasing falls due to a vertigo-like sensation with sudden head movements or when moving from a dark to light room with a recent fall about a week ago when he lost his balance when standing up and fell into a closed cabinet door without significant injury so he did not seek medical attention at that time. He admits he occasionally has had to take his NTG due to chest discomfort and he admits to SOB with increased activity - but he denies having to take his nitroglycerin recently. In the ER his initial x-rays were unrevealing but his MRI revealed a subcapital fracture of the left hip with evidence of a mild left obturator externus muscle strain complicated by laboratory evidence of moderate thrombocytopenia of 123 present on admission and clinical evidence of acute urinary obstruction; requiring Lee placement with the orthopedist on-call recommending patient be admitted to the hospitalist service and that he be kept n.p.o. for ORIF tomorrow which was done. He was then admitted to the general medical floor for ongoing care for stay that is expected to be greater than 48 hours. Hospital Course: 1. Acute subcapital fracture of left hip after mechanical fall status post repair 08/14/2023 ? Continue with pain management ? PT/OT ? He was considered low risk by cardiology after evaluation and echo can proceed with surgery ? Consult case management for discharge planning to SNF 2. CAD/HTN/HLD ? Blood pressure stable ? Can resume his home blood pressure medications ? We will monitor make adjustments as necessary 3. GERD ? Stable ? Continue with Protonix ? 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 Hemoglobin is stable and is consistent with IV fluids and postoperative drop, he went from 13.1 on admission to 11.9. Recheck hemoglobin is 12.3 unlikely to have any significant GI bleeding 4. Chronic gout ? Stable ? Continue with allopurinol Physical Exam Narrative General: Alert, Oriented x3, Cooperative, No apparent distress HEENT: Atraumatic, PERRLA, EOMI, Normocephalic Oral: Moist Mucosa Neck: Supple, No JVD Lungs: Diminished, Normal air movement, No rhonchi, No wheeze, No rales Cardiovascular: Regular rate, Regular Rhythm, Normal S1, Normal S2, No murmurs Abdomen: Soft, Non Tender, Non-Distended, No Hepato-splenomegaly Extremities: No edema, Capillary Refill Less than 3 Seconds Skin: No rashes, No breakdown, dressing CDI Musculoskeletal: Left hip pain to palpation Neurological: Cranial nerves II-XII grossly intact, Motor Exam 5/5 strength throughout, Sensory exam intact to light touch and pain Psych/Mental Status: Normal Affect, Appropriate Weight / BMI Weight Weight: 220 lb 7.396 oz Body Mass Index (BMI) 32.5 ABG / Lab / Microbiology Data 08/16/23 04:30 08/16/23 04:30 Microbiology: Microbiology 08/14/23 02:35 Vomitus Gastric Occult Blood - Final Occult Blood Positive Meaningful Use Info Meaningful Use Diagnoses (Choose all that apply): None applicable Discharge Plan Admission Admit Date/Time: 08/13/23 20:15 Attending Provider: Chacho Gradiner Primary Care Provider: Mary Arreola Consulting Providers: Ramy Ortega; Mario Aomr; Saurabh Lyles Discharge Orders/Prescriptions Prescriptions: New oxycodone 5 mg Tablet 5 mg PO Q4H PRN PRN (Reason: Pain Score 4-5) 3 Days Qty: 10 0RF Eliquis 5 mg Tablet 2.5 mg PO BID 21 Days Qty: 42 0RF pantoprazole [Protonix] 40 mg tablet,delayed release (DR/EC) 40 mg PO DAILY Qty: 30 0RF Continued ipratropium-albuterol 0.5 mg-3 mg(2.5 mg base)/3 mL solution for nebulization 3 ml INHALATION Q6H PRN (Reason: SHORTNESSOF BREATH ) ascorbic acid (vitamin C) 1,000 mg capsule 1 g PO BID nitroglycerin 0.4 mg tablet, sublingual 0.4 mg SUBLINGUAL Q5M PRN (Reason: CHEST PAIN ) Qty: 25 3RF budesonide-formoterol 1 INHALER inhaler 2 puff INHALATION BID tiotropium bromide 18 mcg capsule, w/inhalation device 18 mcg inhalation DAILY furosemide 20 mg tablet 5 mg PO QODAY aspirin [Adult Aspirin Regimen] 81 mg tablet,delayed release (DR/EC) 81 mg PO DAILY (DME) Handicap placard See Rx Instructions .Route .MEDSUPPLY Qty: 1 0RF Rx Instructions: 5 year rx 07/30/22-07/30/23 allopurinol 300 mg tablet 300 mg PO DAILY Qty: 90 3RF carvedilol 25 mg tablet 25 mg PO BID Qty: 180 3RF ezetimibe 10 mg tablet 10 mg PO DAILY Qty: 90 3RF potassium gluconate 595 mg (99 mg) tablet 595 mg PO DAILY Qty: 90 3RF Referrals / Follow Up: Ramy Ortega DO [Med Staff - Active Staff] - Within 2 Weeks Mary Arreola MD [Primary Care Provider] - Disposition Disposition (needs filled in before D/C Order can be placed): [facility] Charges/Coding Visit Charges Inpatient E&M: 70901 Disch Hosp >30min
== END 2023-08-17 13:55 | disposition skilled nursing facility (03) | DRG 481 ==
LOC: ED 19:26 → MS3 20:53
PROVIDERS: Anesthesiology; Internal Medicine Gastroenterology; Nurse Practitioner; Orthopaedic Surgery; Admitting Provider Internal Medicine; Emergency Provider Emergency Medicine; PCP Internal Medicine; Visit Provider Family Medicine
PROC: 0DJ08ZZ Inspection of Upper Intestinal Tract, Via Natural or Artificial Opening Endoscopic (ICD-10-PCS; CPT 43235; principal; 2023-08-14 12:40)
PROC: 0QS734Z Reposition Left Upper Femur with Internal Fixation Device, Percutaneous Approach (ICD-10-PCS; principal; 2023-08-14 16:00)
DX: S72.012A Unspecified intracapsular fracture of left femur, initial encounter for closed fracture (principal); J96.11 Chronic respiratory failure with hypoxia; I42.8 Other cardiomyopathies; N13.8 Other obstructive and reflux uropathy; D69.6 Thrombocytopenia, unspecified; J44.9 Chronic obstructive pulmonary disease, unspecified; I10 Essential (primary) hypertension; E78.5 Hyperlipidemia, unspecified; I25.10 Atherosclerotic heart disease of native coronary artery without angina pectoris; K21.9 Gastro-esophageal reflux disease without esophagitis; M1A.9XX0 Chronic gout, unspecified, without tophus (tophi); W19.XXXA Unspecified fall, initial encounter; G47.33 Obstructive sleep apnea (adult) (pediatric); H81.10 Benign paroxysmal vertigo, unspecified ear; E66.9 Obesity, unspecified; Z99.81 Dependence on supplemental oxygen; N40.1 Benign prostatic hyperplasia with lower urinary tract symptoms; Z87.891 Personal history of nicotine dependence; G89.29 Other chronic pain; Z79.82 Long term (current) use of aspirin; Z79.899 Other long term (current) drug therapy; Z68.37 Body mass index [BMI] 37.0-37.9, adult; R33.8 Other retention of urine
CPT/HCPCS: 36415; 72170; 73501; 73552; 73721; 76000; 80048; 82271; 84153; 84443; 85025; 85610; 85730; 86850; 86900; 86901; 93005; 93306; 94640; 97162; 97166; 97530; 97535; 99284; C1713; J7030; J7120; Q9957; A4216; C8929; G0103; J2405

== ENCOUNTER → 2023-10-11 | Outpatient (CLI) | payer MEDICARE, SELFPAY ==
[2023-10-11 15:51] LABS: Absolute Lymphocyte Count 2.52 X10^3/uL (0.83-4.51); Absolute Neutrophil Count 2.7 X10^3/uL (2.0-7.7); Basophil# 0.02 X10^3/uL; Basophil% 0.3 % (0-1); Eosinophil# 0.12 X10^3/uL; Hematocrit 41.9 % (40-54); Hemoglobin 12.8 g/dL (13.0-16.5); Lymphocyte # 2.52 X10^3/ul (0.83-4.51); Lymphocyte % 41.4 % (19-41); Mean Corp Hgb Conc 30.5 g/dL (32-36); Mean Corpuscular Hgb 29.3 pg (27.0-32.0); Mean Corpuscular Volume 95.9 fL (80-94); Mean Platelet Vol. 10.9 fl (6.2-12.0); Monocyte# 0.66 X10^3/uL; Monocyte% 10.9 % (0-10); NRBC Flagged by Analyzer 0 % (0-5); Neutrophil # 2.73 X10^3/uL (2.7-7.7); Neutrophil % 44.9 % (47-70); Platelet Count 130 K/mm3 (150-450); RBC Distribution Width CV 15.3 % (11.6-14.6); RBC Distribution Width SD 53.6 fl (35.1-43.9); Red Blood Count 4.37 M/mm3 (4.6-6.2); White Blood Count 6.1 K/mm3 (4.4-11.0)
[2023-10-11 16:47] LABS: Anion Gap 4 (5-15); BUN 9 mg/dL (7-18); BUN/Creat Ratio 12.2 RATIO (10-20); Calcium,Total 9.1 mg/dL (8.5-10.1); Chloride 106 mmol/L (98-107); Creatinine, Serum 0.74 mg/dL (0.70-1.30); EST Glomerular Filtration Rate 108 mL/min (>60); Est Glom Filt Rate - Afr Amer 131 mL/min (>60); Glucose 105 mg/dL (74-106); Potassium 3.9 mmol/L (3.5-5.1); Sodium Level 139 mmol/L (136-145)
[2023-10-11 17:36] LABS: BNP,B-Type NATRIURETIC PEPTIDE 20.9 pg/mL (0-100)
== END | disposition home or self-care (01) ==
LOC: MTLAB 12:33
PROVIDERS: PCP Internal Medicine; Referring Provider Nurse Practitioner Gerontology; Visit Provider Nurse Practitioner Gerontology
DX: R06.00 Dyspnea, unspecified (principal)
CPT/HCPCS: 36415; 80048; 83880; 85025

== ENCOUNTER → 2025-02-22 | Outpatient (CLI) | payer MEDICARE, SELFPAY ==
[2025-02-22 15:13] LABS: Absolute Lymphocyte Count 1.73 X10^3/uL (0.83-4.51); Absolute Neutrophil Count 5.5 X10^3/uL (2.0-7.7); Basophil# 0.02 X10^3/uL; Basophil% 0.3 % (0-1); Eosinophil# 0.08 X10^3/uL; Hematocrit 41.1 % (40-54); Hemoglobin 13.2 g/dL (13.0-16.5); Lymphocyte # 1.73 X10^3/ul (0.83-4.51); Lymphocyte % 21.7 % (19-41); Mean Corp Hgb Conc 32.1 g/dL (32-36); Mean Corpuscular Volume 93.4 fL (80-94); Mean Platelet Vol. 10.9 fl (6.2-12.0); Monocyte% 7.5 % (0-10); NRBC Flagged by Analyzer 0 % (0-5); Neutrophil # 5.51 X10^3/uL (2.7-7.7); Neutrophil % 69.1 % (47-70); Platelet Count 104 K/mm3 (150-450); RBC Distribution Width CV 16.1 % (11.6-14.6)
[2025-02-22 15:54] LABS: Anion Gap 11 (5-15); BUN 18 mg/dL (4-19); Calcium,Total 9.3 mg/dL (7.6-11.0); Carbon Dioxide 25.1 mmol/L (21.0-32.0); Chloride 104 mmol/L (98-108); Creatinine, Serum 0.77 mg/dL (0.70-1.20); EST Glomerular Filtration Rate 89 (>60); Glucose 123 mg/dL (70-99); Potassium 4.7 mmol/L (3.3-5.1); Pro- Brain NATRIURETIC PEPTIDE 226 pg/mL (<=1800); Sodium Level 140 mmol/L (133-145); Thyroid Stim Hormone (TSH) 0.737 uIU/mL (0.300-4.200)
== END | disposition home or self-care (01) ==
LOC: LAB 13:54
PROVIDERS: PCP Internal Medicine; Referring Provider Nurse Practitioner Gerontology; Visit Provider Nurse Practitioner Gerontology
DX: R06.09 Other forms of dyspnea (principal); R53.83 Other fatigue
CPT/HCPCS: 36415; 80048; 83880; 84443; 85025